=== PATIENT | female | born 1950 | race Caucasian/White ===

== ENCOUNTER → 2016-08-19 | Outpatient (CLI) | payer BC ==
[~2016-08-19] MED LIST: CYM60 PO; MELO15TA3 PO
--- NOTE | 2016-08-19 07:23 | DIAGNOSTIC IMAGING REPORT ---
RENAL ULTRASOUND CLINICAL HISTORY: Hematuria. COMPARISON STUDY: CT of the abdomen and pelvis April 19, 2016. TECHNIQUE: Sonography of the kidneys and the urinary bladder was performed. FINDINGS: The right kidney measures 10 x 4.4 x 5.4 cm and the left measures 10.5 x 4.9 x 4.6 cm. There is no hydronephrosis. No calculi are identified. No masses are identified. Renal echogenicity, size and cortical thickness are normal. The bladder is unremarkable. Both ureteral jets were identified. IMPRESSION: Normal renal ultrasound. No hydronephrosis. No urinary calculi identified. Electronically signed by: Everett Amin M.D. 08/19/2016 7:21 AM Dictated Date/Time: 08/19/2016 7:19 AM
== END | disposition home or self-care (01) ==
LOC: C.ULTR 06:19
PROVIDERS: ATTEND Urology
DX: R31.9 Hematuria, unspecified (principal)

== ENCOUNTER → 2016-09-09 | Outpatient (CLI) | payer BC | END | disposition home or self-care (01) | LOC: C.PATHSPEC 17:28 | PROVIDERS: ATTEND Urology | DX: R31.9 Hematuria, unspecified (principal) ==

== ENCOUNTER → 2016-09-19 | Outpatient (CLI) | payer BC ==
--- NOTE | 2016-09-19 15:40 | MAMMOGRAPHY REPORT ---
BILATERAL DIGITAL SCREENING MAMMOGRAM WITH CAD: 09/19/2016 CLINICAL HISTORY: Routine screening. Patient has no complaints. TECHNIQUE: Current study was also evaluated with a Computer Aided Detection (CAD) system. Bilatera l CC and MLO views were obtained. COMPARISON: Comparison is made to exams dated: 06/05/2015 mammogram, 06/03/2014 mammogram, 09/17/2011 m ammogram, 02/26/2010 mammogram - [facility], and 10/16/1998 mammogram - [facility]. BREAST COMPOSITION: The tissue of both breasts is heterogeneously dense, which may obscure small ma sses. FINDINGS: No suspicious masses, calcifications, or areas of architectural distortion are noted in e ither breast. There has been no significant interval change compared to prior exams. Bilateral asym metries are stable compared to prior exams, including asymmetry in the right superior breast which i s stable dating back to 2009 and an asymmetry in the left superior breast on the MLO view which is s table dating back to at least the 2014 and 2011 exams. IMPRESSION: ACR BI-RADS CATEGORY 2: BENIGN There is no mammographic evidence of malignancy. A 1 year screening mammogram is recommended. The p atient will receive written notification of the results. Approximately 10% of breast cancers are not detected with mammography. A negative mammographic repor t should not delay biopsy if a clinically suggestive mass is present. Michelle Munson M.D. /:09/19/2016 13:36:07 Counseling Case Manager: Arielle Garcia RT(R)(M), [facility] letter sent: Normal 1/2 BI-RADS Code: ACR BI-RADS Category 2: Benign
== END | disposition home or self-care (01) ==
LOC: C.MAMM 08:35
PROVIDERS: ATTEND Internal Medicine Geriatric Medicine
DX: Z12.31 Encounter for screening mammogram for malignant neoplasm of breast (principal)

== ENCOUNTER → 2016-12-06 | Outpatient (CLI) | payer BC ==
[2016-12-06 16:40] LABS: BASO % 0.1 %; BASO ABS # 0.01 K/uL (0-0.2); COMPLETE YES; EOS % 2.2 %; HEMATOCRIT 44.7 % (37-47); IG% 0.1 %; LYMPH ABS # 2.44 K/uL (1.2-3.4); MEAN CELL VOLUME 88.2 fL (80-100); MEAN CORPUSCULAR HEMOGLOBIN 29.2 pg (25-34); MEAN CORPUSCULAR HGB CONC 33.1 g/dl (32-36); MONO % 7.2 %; NEUT % 54.4 %; PLATELET COUNT 275 K/uL (130-400); RED BLOOD COUNT 5.07 M/uL (4.2-5.4); WHITE BLOOD COUNT 6.78 K/uL (4.8-10.8)
[2016-12-06 16:57] LABS: ALT/SGPT 9 U/L (12-78); BLOOD UREA NITROGEN 18 mg/dl (7-18); BUN/CREATININE RATIO 21.9 (10-20); C-REACTIVE PROTEIN < 0.29 mg/dl (0-0.29); CALCIUM 8.9 mg/dl (8.5-10.1); CARBON DIOXIDE 28 mmol/L (21-32); CHLORIDE 105 mmol/L (98-107); CREATININE 0.83 mg/dl (0.60-1.20); GLUCOSE 82 mg/dl (70-99); POTASSIUM 3.7 mmol/L (3.5-5.1); SODIUM 141 mmol/L (136-145)
[2016-12-06 17:07] LABS: ALB/GLOB RATIO 1.1 (0.9-2); ALKALINE PHOSPHATASE 83 U/L (45-117); AST/SGOT 15 U/L (15-37)
== END | disposition home or self-care (01) ==
LOC: C.LABBC 15:32
PROVIDERS: ATTEND Physician Assistant
DX: L28.2 Other prurigo (principal)

== ENCOUNTER 2021-12-22 12:23 | Observation (INO) ==
[2021-12-22] MEDS ORDERED: MoRPHine SULFATE 2 MG/ML CARP IV STA ×2 (12:38→13:54)
[2021-12-22] MEDS ORDERED: ONDANSETRON INJ 2 MG/ML 2 ML VIAL IV STA (12:38)
[2021-12-22] MEDS ORDERED: LIDOCAINE 5% 1 PATCH TD STA (12:39)
--- NOTE | 2021-12-22 12:42 | Emergency Department Note ---
History of Present Illness General Chief complaint: Back Injury/Pain Stated complaint: BACK PAIN Time Seen by Provider: 12/22/21 12:29 History of Present Illness Maximum Pain Intensity: 7 This is a 71-year-old female that presents to the emergency department via private vehicle with complaints of "back pain, hard time walking". The patient has a history of "sciatica" and has been dealing with intermittently for some time now. Patient notes trouble walking secondary to this. She has not had any spine surgery before. She states that yesterday and today the pain seems to have returned prompting arrival here today. She notes the pain is much worse than previous discomforts. She points to the right gluteal region as a location of the pain that radiates into the right leg. No known trauma or injury. No fevers or chills. No abdominal pain. No lower extremity weakness. No bowel or bladder incontinence. She does feel some weakness in the right leg. The patient has been taking Tylenol without relief. No anticoagulant use. No allergies. No infectious symptoms. Home Medications Medication Instructions Recorded Confirmed Type acetaminophen 500 mg tablet 1,000 mg PO TID PRN #90 tabs 11/20/18 09/21/21 History cholecalciferol (vitamin D3) 25 3,000 unit PO DAILY 02/28/20 09/21/21 History mcg (1,000 unit) capsule propranolol 160 mg capsule,24 160 mg PO DAILY #90 caps 04/13/21 09/21/21 Rx hr,extended release cyanocobalamin (vitamin B-12) 1,000 mcg IM .COMPLEX #1 mL 07/26/21 09/21/21 Rx 1,000 mcg/mL injection solution mecobalamin (vitamin B12) 10,000 1,000 mcg IM .COMPLEX #1 ea 07/26/21 09/21/21 Rx mcg solution for injection ropinirole 1 mg tablet 1 mg PO TID #90 tabs 09/11/21 09/21/21 Rx duloxetine 60 mg capsule,delayed 60 mg PO DAILY #90 caps 09/21/21 09/21/21 Rx release meloxicam 15 mg tablet 15 mg PO DAILY #90 tabs 09/21/21 09/21/21 Rx cyclobenzaprine 5 mg tablet 5 mg PO TID PRN muscle spasm #20 11/13/21 Rx tabs oxycodone 5 mg tablet 5 - 10 mg PO Q6H PRN pain #15 tabs 11/13/21 Rx prednisone 20 mg tablet 20 mg PO DAILY #18 tabs 11/13/21 Rx carbidopa 25 mg-levodopa 100 mg 1 tab PO TID 90 days #270 tabs 12/17/21 Rx tablet Allergies Allergy/AdvReac Type Severity Reaction Status Date / Time No Known Drug Allergies Allergy Verified 09/21/21 09:33 Past Med/Surg History Medical History Benign familial tremor Fibromyalgia Hyperlipidemia, unspecified Migraine without aura and without status migrainosus, not intractable Osteoporosis, unspecified Parkinsonism Vitamin D deficiency Surgical History History of cataract surgery (2020) Both eyes S/P tonsillectomy and adenoidectomy S/P tooth extraction Family History Father Myocardial infarction Coronary heart disease Tremor Stroke Mother , age 79 Pancreatic cancer Brother Tremor Melanoma Grandmother (Maternal) Crohn's colitis Daughter Crohn's colitis Denies family history of Ovarian cancer Prostate cancer Diabetes Breast cancer Lung cancer Colorectal cancer Social History Smoking Status: Never smoker Second Hand Exposure: No; Hx Alcohol Use: No Hx Substance Use: No Preferred Language: Yakut Communication Ability: Effective Visual Impairment: No Limitations Hearing Ability: Normal Graves Registration Specialist Required: No Beliefs That Will Affect Care: None marital status: / Current Living Situation: Alone 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 Feels Safe at Home: Yes Childhood Exposure to Second-Hand Smoke: No Diet Comment: regular caffeine: No during the past year weight has: remained stable Dental Care, Regularly: Yes Physical Activity Frequency: Daily Physical Activity Frequency Comment: Walking Seatbelt Use: always Sunscreen Use: Yes Review of Systems A total of 10 systems reviewed and were otherwise negative Physical Exam Vital Signs Vital Signs - 24 hr 12/22/21 12:26 12/22/21 12:39 12/22/21 13:35 Temperature 36.7 C Temperature Source Skin Pulse Rate 74 Pulse Rate [Right Radial] 76 Pulse Rhythm Regular Pulse Rhythm [Right Radial] Regular Pulse Strength Normal Respiratory Rate 16 20 Respiratory Effort / Characteristics Non-Labored Spontaneous Respiratory Depth Normal Normal Respiratory Pattern Regular Blood Pressure 144/95 H Blood Pressure [Left Arm] 143/76 H Blood Pressure Mean 111 Blood Pressure Mean [Left Arm] 98 Blood Pressure Position Sitting Blood Pressure Position [Left Arm] Pulse Oximetry 95 94 98 Oxygen Delivery Method Room Air Room Air Room Air Oxygen Flow Rate Sepsis Recent Fever Within 48 Hours No Sepsis New/Unexplained Change in Mental Status No Sepsis Action Taken by Nursing No Action Required 12/22/21 15:08 12/22/21 16:00 Temperature Temperature Source Pulse Rate Pulse Rate [Right Radial] 70 73 Pulse Rhythm Pulse Rhythm [Right Radial] Regular Pulse Strength Respiratory Rate 16 16 Respiratory Effort / Characteristics Respiratory Depth Respiratory Pattern Blood Pressure Blood Pressure [Left Arm] 157/94 H 150/102 H Blood Pressure Mean Blood Pressure Mean [Left Arm] 115 118 Blood Pressure Position Blood Pressure Position [Left Arm] Sitting Pulse Oximetry 93 95 Oxygen Delivery Method Nasal Cannula Nasal Cannula Oxygen Flow Rate 2 Sepsis Recent Fever Within 48 Hours Sepsis New/Unexplained Change in Mental Status Sepsis Action Taken by Nursing VITAL SIGNS - Vital signs and nursing notes were reviewed. Stable and afebrile. GENERAL - 71-year-old female appearing her stated age who is in no acute distres s. Communicates well with provider and answers questions appropriately. SKIN - Without rashes. No meningeal or petechial rash. HEAD - NC/AT. EYES - PERRL with EOMI bilaterally. Sclera anicteric. EARS - No deformities of external structures noted on gross examination bilaterally. NOSE - Midline and without cyanosis. No epistaxis or purulent drainage noted. MOUTH/OROPHARYNX - Without perioral cyanosis. NECK - Neck with FROM. No nuchal rigidity. LUNGS - Chest wall symmetric without accessory muscle use, intercostals retractions, or central cyanosis. Normal vesicular breath sounds CTA B/L. No wheezes, rales, or rhonchi appreciated. CARDIAC - RRR with S1/S2. No murmur, rubs, or gallops appreciated. ABDOMEN - Abdominal contour normal without pulsations or visible masses. BS normoactive all four quadrants. No tenderness, palpable masses, hepatosplenomegaly, or ascites noted. EXTREMITIES - No clubbing or peripheral cyanosis. +5/5 strength noted in UE/LE bilaterally. NEUROLOGIC - Cranial nerves II through XII grossly intact. PSYCH - A&O, and cooperates fully with examiner. Pt is very pleasant and interacts well with examiner. Course Administered Medications Discontinued Medications Dexamethasone Sodium Phosphate (DexamethasonePf 10 Mg/Ml Vial) 10 mg IV NOW ONE Stop: 12/22/21 16:16 Last Admin: 12/22/21 16:41 Dose: 10 mg Documented By: JORDAN Fentanyl Citrate (Fentanyl Citrate 100 Mcg/2 Ml Vial) 50 mcg IV NOW STA Stop: 12/22/21 14:21 Last Admin: 12/22/21 14:29 Dose: 50 mcg Documented By: Ketorolac Tromethamine (Ketorolac Tromethamine 15 Mg/Ml Vial) 10 mg IV NOW STA Stop: 12/22/21 14:21 Last Admin: 12/22/21 14:29 Dose: 10 mg Documented By: Lidocaine (Lidocaine 5% 1 Patch) 1 patch TD NOW STA Stop: 12/22/21 12:40 Last Admin: 12/22/21 12:59 Dose: 1 patch Documented By: Morphine Sulfate (Morphine Sulfate 2 Mg/Ml Carp) 2 mg IV NOW STA Stop: 12/22/21 12:39 Last Admin: 12/22/21 12:58 Dose: 2 mg Documented By: Morphine Sulfate (Morphine Sulfate 2 Mg/Ml Carp) 2 mg IV NOW STA Stop: 12/22/21 13:55 Last Admin: 12/22/21 13:58 Dose: 2 mg Documented By: COMFORT Ondansetron HCl (Ondansetron Inj 2 Mg/Ml 2 Ml Vial) 4 mg IV NOW STA Stop: 12/22/21 12:39 Last Admin: 12/22/21 12:58 Dose: 4 mg Documented By: Medical Decision Making Laboratory Data Result diagrams: 12/22/21 12:49 12/22/21 12:49 Lab Results 12/22/21 12/22/21 Range/Units 12:49 12:49 WBC 4.23 L (4.8-10.8) K/ul RBC 4.90 (3.93-5.22) M/uL Hgb 14.4 (12.0-16.0) g/dl Hct 43.7 (34.1-44.9) % MCV 89.2 (80.0-100.0) fL MCH 29.4 (25.0-34.0) pg MCHC 33.0 (32.0-36.0) g/dL RDW Std Deviation 41.5 (36.4-46.3) fL RDW Coeff of Karal 12.7 (11.5-14.5) % Plt Count 226 (130-400) K/uL MPV 10.1 (9.4-12.3) fL Immature Gran % (Auto) 0.2 % Neut % (Auto) 47.1 % Lymph % (Auto) 41.4 % [place] % (Auto) 9.9 % Eos % (Auto) 1.2 % Baso % (Auto) 0.2 % Neut # (Auto) 1.99 (1.4-6.5) K/uL Lymph # (Auto) 1.75 (1.2-3.4) K/uL [place] # (Auto) 0.42 (0.24-0.82) K/uL Eos # (Auto) 0.05 (0-0.50) K/uL Baso # (Auto) 0.01 (0-0.2) K/uL Immature Gran # (Auto) 0.01 (0.00-0.02) K/uL Sodium 138 (136-145) mmol/L Potassium 4.4 (3.5-5.1) mmol/L Chloride 104 (98-107) mmol/L Carbon Dioxide 28 (21-32) mmol/L Anion Gap 6 (3-11) BUN 19 (6-23) mg/dl Creatinine 0.73 (0.6-1.2) mg/dl Est Cr Clr Drug Dosing Not Reportable Est GFR ( Amer) 96.0 ml/min Est GFR (Non-Af Amer) 82.9 ml/min BUN/Creatinine Ratio 26.0 H (10-20) Glucose 94 (70-99(Fasting)) mg/dl Calcium 9.1 (8.5-10.1) mg/dl Total Bilirubin 0.5 (0.2-1.0) mg/dl AST 37 (13-39) U/L ALT 71 H (7-52) U/L Alkaline Phosphatase 72 (34-104) U/L Total Protein 7.1 (6.0-8.3) gm/dl Albumin 4.2 (3.4-5.0) gm/dl Globulin 2.9 (2.5-4.0) gm/dl Albumin/Globulin Ratio 1.4 (0.9-2) Imaging Data Radiologist's Impression: Lumbar Spine MRI 12/22/21 12:38 MR lumbar spine wo con CLINICAL HISTORY: R low back pain into R leg, R leg weakness TECHNIQUE: Multiplanar sequences through the lumbar spine were obtained, without intravenous contrast. Comparison: Comparison is made to MRI lumbar spine 05/31/2021 FINDINGS: The alignment is anatomical. L1-L2: A broad-based posterior disc bulge is seen without significant canal or neural foraminal stenosis. L2-L3: Broad-based posterior disc bulge without evidence of significant canal or neuroforaminal stenosis. L3-L4: Left greater than right disc bulge is seen with mild left neuroforaminal stenosis. L4-L5: Broad-based posterior disc bulge with moderate left neural foraminal stenosis. L5-S1: Broad-based posterior disc bulge with moderate bilateral foraminal stenosis. The spinal ligaments are intact, without evidence of disruption or abnormal signal intensity. The spinal cord is normal in signal intensity and there is no evidence of cord contusion. There is no evidence of an extradural, intradural, extramedullary or intramedullary lesion. Visualized soft tissues are normal. IMPRESSION: Multilevel degenerative changes as above. No significant canal stenosis, up to moderate bilateral neural foraminal stenosis. Overall findings are similar to prior exam. ACT 112: Negative or not required by law. Electronically signed by: Antolin Casiano M.D. 12/22/2021 3:30 PM MDM Narrative Patient was seen and evaluated as above in room D09. Review was performed of nursing notes and vital signs. I did review pertinent previous visits and patient history. After obtaining a thorough history and physical examination the above work up was performed. Patient presents to us today for evaluation of right-sided low back pain. This does fit with a right-sided lumbar radiculopathy. She does not have any findings to suggest cauda equina syndrome. No infectious symptoms. She does appear to be in pain. Options of care were discussed with the patient. IV access was established. Labs were drawn. She was initially medicated with IV morphine, IV Zofran. Lidocaine patch was applied. Given the patient's continued discomfort and now significant difficulty in finding a comfortable position, sleeping, standing/ambulating I did find that an MRI of the L-spine at this time is warranted. This was ordered. I was notified by staff twice that the patient was unable to lie flat secondary to pain. The first time a second dose of morphine was provided and the second time IV fentanyl plus Toradol was ordered however nurse was present to monitor oxygenation while in the MRI suite. There was some mild hypoxia around 88% and she was placed on O2 nasal cannula and responded nicely. The patient was feeling better with this but still did have some difficulty in laying flat. Results of the MRI as above. I did review the images. Overall the findings are similar to prior exam however there are certainly findings that would contribute to her presentation at this time. I discussed in length with the patient several options moving forward and at this time agree upon inpatient management. I do not believe that she will be able to manage her pain well in the outpatient setting at the present time as this was tried about a month ago when she was seen here in the emergency department. Case discussed with the hospitalist service. Please refer to further documentation regarding her stay. I at this time do not believe that she requires emergent transfer or emergent surgery. No deficits on examination to suggest cord injury. I did add IV dexamethasone given the patient's radiculopathy symptoms. It is felt the benefit outweighs the risk. No evidence of infection. Case was discussed with the attending physician. GCS: 15 In the evaluation and treatment of this patient the following differential d iagnosis entertained: Fracture, dislocation, subluxation, cauda equina syndrome, AAA, diverticulitis, appendicitis, torsion, osteomyelitis, piriformis syndrome, strain, sprain, among others. Impression & Plan Right lumbar radiculopathy Discharge Plan Visit Data Chief Complaint: Back Injury/Pain Stated Complaint: BACK PAIN ED Provider: Jose Wheat ED Midlevel Provider: Eugenio Kellogg Discharge Problem: Right lumbar radiculopathy Patient Disposition: Admitted As Inpatient Condition: Good Forms Stand Alone Forms: My [facility], [facility] Emergency Department, Important Visit Information Prescriptions Prescriptions: No Action cholecalciferol (vitamin D3) 25 mcg (1,000 unit) capsule 3,000 unit PO DAILY propranolol 160 mg capsule,extended release 24 hr 160 mg PO DAILY Qty: 90 3RF carbidopa-levodopa 25-100 mg tablet 1 tab PO TID 90 Days Qty: 270 1RF duloxetine 60 mg capsule,delayed release(DR/EC) 60 mg PO DAILY Qty: 90 3RF meloxicam 15 mg tablet 15 mg PO DAILY Qty: 90 3RF mecobalamin (vitamin B12) 10,000 mcg recon soln 1,000 mcg IM .COMPLEX Qty: 1 8RF Rx Instructions: 1000 mcg IM once monthly cyanocobalamin (vitamin B-12) 1,000 mcg/mL solution 1,000 mcg IM .COMPLEX Qty: 1 8RF Rx Instructions: 1,000 mcg IM once monthly; ropinirole 1 mg tablet 1 mg PO TID Qty: 90 5RF acetaminophen 500 mg tablet 1,000 mg PO TID PRNQty: 90 oxycodone 5 mg tablet 5 - 10 mg PO Q6H PRN (Reason: pain) Qty: 15 0RF Rx Instructions: Initial Treatment prednisone 20 mg tablet 20 mg PO DAILY Qty: 18 0RF Rx Instructions: 3 tablets once daily x 3 days, 2 tablets once daily x 3 days, one tablet once daily x 3 days. cyclobenzaprine 5 mg tablet 5 mg PO TID PRN (Reason: muscle spasm) Qty: 20 0RF Referrals Referrals: Jasmin Polanco, [Primary Care Provider] -
[2021-12-22 12:57] LABS: Basophils # (auto) 0.01 K/uL (0-0.2); Basophils % (auto) 0.2 %; Eosinophils # (auto) 0.05 K/uL (0-0.50); Eosinophils % (auto) 1.2 %; Hematocrit (blood only) 43.7 % (34.1-44.9); Hemoglobin 14.4 g/dl (12.0-16.0); Immature Granulocytes # (auto) 0.01 K/uL (0.00-0.02); Immature Granulocytes % (auto) 0.2 %; Lymphocytes # (auto) 1.75 K/uL (1.2-3.4); Lymphocytes % (auto) 41.4 %; Mean Corpuscular Hemoglobin 29.4 pg (25.0-34.0); Mean Corpuscular Volume 89.2 fL (80.0-100.0); Mean Platelet Volume 10.1 fL (9.4-12.3); Monocytes # (auto) 0.42 K/uL (0.24-0.82); Monocytes % (auto) 9.9 %; Neutrophils # (auto) 1.99 K/uL (1.4-6.5); Neutrophils % (auto) 47.1 %; Platelet Count 226 K/uL (130-400); RDW Coefficient of Variation 12.7 % (11.5-14.5); RDW Standard Deviation 41.5 fL (36.4-46.3); White Blood Count 4.23 K/ul (4.8-10.8)
[2021-12-22 13:23] LABS: Alanine Aminotransferase 71 U/L (7-52); Albumin Globulin Ratio 1.4 (0.9-2); Albumin Level 4.2 gm/dl (3.4-5.0); Alkaline Phosphatase 72 U/L (34-104); Anion Gap 6 (3-11); Aspartate Aminotransferase 37 U/L (13-39); Bilirubin,Total 0.5 mg/dl (0.2-1.0); Blood Urea Nitrogen 19 mg/dl (6-23); Calcium 9.1 mg/dl (8.5-10.1); Carbon Dioxide 28 mmol/L (21-32); Chloride 104 mmol/L (98-107); Est GFR (Non-African American) 82.9 ml/min; Globulin 2.9 gm/dl (2.5-4.0); Glucose 94 mg/dl (70-99(Fasting)); Potassium 4.4 mmol/L (3.5-5.1); Sodium 138 mmol/L (136-145); Total Protein 7.1 gm/dl (6.0-8.3)
[2021-12-22] MEDS ORDERED: KETOROLAC TROMETHAMINE 15 MG/ML VIAL IV STA (14:20)
[2021-12-22] MEDS ORDERED: fentaNYL citrate 100 MCG/2 ML VIAL IV STA (14:20)
--- NOTE | 2021-12-22 15:31 | Magnetic Resonance Report ---
MR lumbar spine wo con CLINICAL HISTORY: R low back pain into R leg, R leg weakness TECHNIQUE: Multiplanar sequences through the lumbar spine were obtained, without intravenous contrast . Comparison: Comparison is made to MRI lumbar spine 05/31/2021 FINDINGS: The alignment is anatomical. L1-L2: A broad-based posterior disc bulge is seen without significant canal or neural foraminal steno sis. L2-L3: Broad-based posterior disc bulge without evidence of significant canal or neuroforaminal steno sis. L3-L4: Left greater than right disc bulge is seen with mild left neuroforaminal stenosis. L4-L5: Broad-based posterior disc bulge with moderate left neural foraminal stenosis. L5-S1: Broad-based posterior disc bulge with moderate bilateral foraminal stenosis. The spinal ligaments are intact, without evidence of disruption or abnormal signal intensity. The spi nal cord is normal in signal intensity and there is no evidence of cord contusion. There is no eviden ce of an extradural, intradural, extramedullary or intramedullary lesion. Visualized soft tissues are normal. IMPRESSION: Multilevel degenerative changes as above. No significant canal stenosis, up to moderate bilateral carlos ral foraminal stenosis. Overall findings are similar to prior exam. ACT 112: Negative or not required by law. Electronically signed by: Antolin Casiano M.D. 12/22/2021 3:30 PM
[2021-12-22] MEDS ORDERED: dexAMETHasone**PF** 10 MG/ML VIAL IV ONE (16:15)
[2021-12-22] MEDS ORDERED: CARBIDOPA/LEVODOPA 25/100MG TAB ODT PO STA (16:56)
--- NOTE | 2021-12-22 17:04 | History & Physical Report ---
Date of Service December 22, 2021 Assessment & Plan (1) Right lumbar radiculopathy: Plan: Pain consistent with likely sciatic pain, MRI with disk disease and bulging without stenosis - Multi-tiered pain control- Tylenol, Lidocaine patch, Cyclobenzaprine, oral prednisone to start in AM, oxy, Hydromporphone - Will initiate Gabapentin 300mg PO BID - Continue Duloxetine - Ortho spine consultation - PT/OT therapy - Acute/chronic pain consult if unable to get pain controlled (2) Parkinsons disease: Plan: Continue Carbi-dopa/Levadopa - dose now as she takes TID (3) Vitamin D deficiency: Plan: Continue Vitamin D (4) Osteoporosis, unspecified: Plan: As above (5) Hyperlipidemia, unspecified: Plan: no medications diet controlled follow up with PCP (6) Fibromyalgia: Plan: As above- initiate gabapentin, continue Cymbalta (7) Benign familial tremor: Plan: Continue Propanolol (8) Vitamin B12 deficiency: Plan: Monthly B12 inections stable History of Present Illness Primary Care Provider: Jasmin oPlanco, DO 71 YOF with medical history of: Parkinson disease, chronic low back pain with sciatica, fibromyalgia, osteopetrosis, HLD, migraine, vitamin D deficiency. Patient comes to the EMD today for increase in lower back pain, radicular symptoms of her right leg. She has been dealing with this chronic back pain and sciatic pain for some time. She was performing physical therapy with some relief that stopped in November. She was evaluated in the EMD earlier in the month and was treated with steroids, anti-spasmodics, narcotic- this temporized her pain and she was able to walk and function. Since that time her pain worsened over the past 3 days with worse pain and inability to sleep lying flat, or walk standing up straight. The pain is located on her right lower side of her back with radiation to her buttocks and then down the back of her leg into her foot. The pain is sharp, stabbing in her back and the pain going down her leg is sharp and burning. In the EMD the patient had narcotics, Toradol, Lidocaine patch, this decreased her pain but still with inability to stand up and ambulate. She had MRI done which did require her to get Fentanyl to tolerate. Patient was given Decadron 10mg upon return from MRI and is now able to stand up. She has been sleeping in recliner and comfortable position for her is only sitting up in chair. Patient will be admitted for pain control and evaluation by Ortho-spine as well as PT/OT. If unable to get pain controlled consider pain consultation. COVID test on admission is: NEGATIVE on admission Allergies Allergy/AdvReac Type Severity Reaction Status Date / Time No Known Drug Allergies Allergy Verified 09/21/21 09:33 Home Medications Medication Instructions Recorded Confirmed Type acetaminophen 500 mg tablet 1,000 mg PO TID PRN #90 tabs 11/20/18 09/21/21 History cholecalciferol (vitamin D3) 25 3,000 unit PO DAILY 02/28/20 09/21/21 History mcg (1,000 unit) capsule propranolol 160 mg capsule,24 160 mg PO DAILY #90 caps 04/13/21 09/21/21 Rx hr,extended release cyanocobalamin (vitamin B-12) 1,000 mcg IM .COMPLEX #1 mL 07/26/21 09/21/21 Rx 1,000 mcg/mL injection solution mecobalamin (vitamin B12) 10,000 1,000 mcg IM .COMPLEX #1 ea 07/26/21 09/21/21 Rx mcg solution for injection ropinirole 1 mg tablet 1 mg PO TID #90 tabs 09/11/21 09/21/21 Rx duloxetine 60 mg capsule,delayed 60 mg PO DAILY #90 caps 09/21/21 09/21/21 Rx release meloxicam 15 mg tablet 15 mg PO DAILY #90 tabs 09/21/21 09/21/21 Rx cyclobenzaprine 5 mg tablet 5 mg PO TID PRN muscle spasm #20 11/13/21 Rx tabs oxycodone 5 mg tablet 5 - 10 mg PO Q6H PRN pain #15 tabs 11/13/21 Rx prednisone 20 mg tablet 20 mg PO DAILY #18 tabs 11/13/21 Rx carbidopa 25 mg-levodopa 100 mg 1 tab PO TID 90 days #270 tabs 12/17/21 Rx tablet Past Med/Surg History Medical History Benign familial tremor Fibromyalgia Hyperlipidemia, unspecified Migraine without aura and without status migrainosus, not intractable Osteoporosis, unspecified Parkinsonism Vitamin D deficiency Surgical History History of cataract surgery (2020) Both eyes S/P tonsillectomy and adenoidectomy S/P tooth extraction Family History Father Myocardial infarction Coronary heart disease Tremor Stroke Mother , age 79 Pancreatic cancer Brother Tremor Melanoma Grandmother (Maternal) Crohn's colitis Daughter Crohn's colitis Denies family history of Ovarian cancer Prostate cancer Diabetes Breast cancer Lung cancer Colorectal cancer Social History Smoking Status: Never smoker Second Hand Exposure: No; Hx Alcohol Use: Yes Alcohol type: beer Hx Substance Use: No Preferred Language: Maltese Communication Ability: Effective Visual Impairment: No Limitations Hearing Ability: Normal Endoscopy Rn Required: No Beliefs That Will Affect Care: None marital status: / Current Living Situation: Significant Other current occupational status: retired 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 Safe at Home: Yes Safety Concerns: Feels Safe At This Time Childhood Exposure to Second-Hand Smoke: No Diet Comment: regular caffeine: No during the past year weight has: remained stable Dental Care, Regularly: Yes Physical Activity Frequency: Daily Physical Activity Frequency Comment: Walking Seatbelt Use: always Sunscreen Use: Yes Assistive Devices: None Review of Systems Review of Systems: REVIEW OF SYSTEMS: Constitutional: No fever, sweats or chills Eyes: No diplopia, no worsening or blurred vision ENT: normal hearing, no trouble swallowing Respiratory: No cough, sputum, dyspnea at rest or on exertion Cardiovascular: No chest pain, tightness or palpitations Abdomen: No pain, nausea, vomiting, diarrhea or constipation Musculoskeletal: (+) low back pain, radiation to right buttocks and down leg, Neurologic: (+) tremor and parkinson, No weakness, numbness/tingling, or balance problems Psychiatric: No anxiety or depression Skin: No rash or itch Physical Exam Physical Exam: PHYSICAL EXAM: General: awake, alert, no apparent distress, tremor present Head: Normocephalic, atraumatic ENT: PERRL, EOMI, no pharyngeal exudate, mucous membranes moist Neuro: AAO x 3, speech clear and appropriate, strength intact bilaterally 5/5, without loss of strength or muscle tone Chest: equal rise and fall of the chest, no accessory muscle use, no heaves or thrills, Clear to auscultation, on room air, Cardiac: Regular rate and rhythm, telemetry reviewed, skin warm dry, cap refill <3 seconds, peripheral pulses +2 no JVD, no murmur, no JVD, no edema GI: NABS x 4 quadrants, soft, nontender to palpation, no rebound, guarding or tenderness : Spontaneously voiding, no pain, no CVA tenderness, MSK: reporducible pain at right lower back at SI joint and ad L5-S1 centerline, pain into buttocks, when pressed at this point radicular pain down her leg Psych: Normal mood and affect Skin: no rash or erythema Results & Data Results & Data ([facility]) Vital Signs (Past 12 Hours) Vital Signs Temp Pulse Pulse Resp BP BP Pulse Ox 12/22/21 16:00 73 16 150/102 H 95 12/22/21 15:08 70 16 157/94 H 93 12/22/21 13:35 76 20 143/76 H 98 12/22/21 12:39 94 12/22/21 12:26 36.7 C 74 16 144/95 H 95 O2 Del Method O2 Flow Rate 12/22/21 16:00 Nasal Cannula 2 12/22/21 15:08 Nasal Cannula 12/22/21 13:35 Room Air 12/22/21 12:39 Room Air 12/22/21 12:26 Room Air Laboratory Results Laboratory Results - last 24 hr 12/22/21 12/22/21 12/22/21 12:49 12:49 16:06 WBC 4.23 L RBC 4.90 Hgb 14.4 Hct 43.7 MCV 89.2 MCH 29.4 MCHC 33.0 RDW Std Deviation 41.5 RDW Coeff of Karla 12.7 Plt Count 226 MPV 10.1 Immature Gran % (Auto) 0.2 Neut % (Auto) 47.1 Lymph % (Auto) 41.4 [place] % (Auto) 9.9 Eos % (Auto) 1.2 Baso % (Auto) 0.2 Neut # (Auto) 1.99 Lymph # (Auto) 1.75 [place] # (Auto) 0.42 Eos # (Auto) 0.05 Baso # (Auto) 0.01 Immature Gran # (Auto) 0.01 Sodium 138 Potassium 4.4 Chloride 104 Carbon Dioxide 28 Anion Gap 6 BUN 19 Creatinine 0.73 Est Cr Clr Drug Dosing Not Reportable Est GFR ( Amer) 96.0 Est GFR (Non-Af Amer) 82.9 BUN/Creatinine Ratio 26.0 H Glucose 94 Calcium 9.1 Total Bilirubin 0.5 AST 37 ALT 71 H Alkaline Phosphatase 72 Total Protein 7.1 Albumin 4.2 Globulin 2.9 Albumin/Globulin Ratio 1.4 SARS-CoV-2, RNA, NAAT NEGATIVE Diagnostic Findings Lumbar Spine MRI 12/22/21 12:38 MR lumbar spine wo con CLINICAL HISTORY: R low back pain into R leg, R leg weakness TECHNIQUE: Multiplanar sequences through the lumbar spine were obtained, without intravenous contrast. Comparison: Comparison is made to MRI lumbar spine 05/31/2021 FINDINGS: The alignment is anatomical. L1-L2: A broad-based posterior disc bulge is seen without significant canal or neural foraminal stenosis. L2-L3: Broad-based posterior disc bulge without evidence of significant canal or neuroforaminal stenosis. L3-L4: Left greater than right disc bulge is seen with mild left neuroforaminal stenosis. L4-L5: Broad-based posterior disc bulge with moderate left neural foraminal stenosis. L5-S1: Broad-based posterior disc bulge with moderate bilateral foraminal stenosis. The spinal ligaments are intact, without evidence of disruption or abnormal signal intensity. The spinal cord is normal in signal intensity and there is no evidence of cord contusion. There is no evidence of an extradural, intradural, extramedullary or intramedullary lesion. Visualized soft tissues are normal. IMPRESSION: Multilevel degenerative changes as above. No significant canal stenosis, up to moderate bilateral neural foraminal stenosis. Overall findings are similar to prior exam. ACT 112: Negative or not required by law. Electronically signed by: Antolin Casiano M.D. 12/22/2021 3:30 PM Medications Administered Discontinued Medications Dexamethasone Sodium Phosphate (DexamethasonePf 10 Mg/Ml Vial) 10 mg IV NOW ONE Stop: 12/22/21 16:16 Last Admin: 12/22/21 16:41 Dose: 10 mg Documented By: JORDAN Fentanyl Citrate (Fentanyl Citrate 100 Mcg/2 Ml Vial) 50 mcg IV NOW STA Stop: 12/22/21 14:21 Last Admin: 12/22/21 14:29 Dose: 50 mcg Documented By: AB Ketorolac Tromethamine (Ketorolac Tromethamine 15 Mg/Ml Vial) 10 mg IV NOW STA Stop: 12/22/21 14:21 Last Admin: 12/22/21 14:29 Dose: 10 mg Documented By: Lidocaine (Lidocaine 5% 1 Patch) 1 patch TD NOW STA Stop: 12/22/21 12:40 Last Admin: 12/22/21 12:59 Dose: 1 patch Documented By: AB Morphine Sulfate (Morphine Sulfate 2 Mg/Ml Carp) 2 mg IV NOW STA Stop: 12/22/21 12:39 Last Admin: 12/22/21 12:58 Dose: 2 mg Documented By: AB Morphine Sulfate (Morphine Sulfate 2 Mg/Ml Carp) 2 mg IV NOW STA Stop: 12/22/21 13:55 Last Admin: 12/22/21 13:58 Dose: 2 mg Documented By: COMFORT Ondansetron HCl (Ondansetron Inj 2 Mg/Ml 2 Ml Vial) 4 mg IV NOW STA Stop: 12/22/21 12:39 Last Admin: 12/22/21 12:58 Dose: 4 mg Documented By: AB ECG Additional Comments: none obtained Code Status & VTE Plan Code Status CODE: FULL VTE: SCDs, Heparin 5000 units subq q12 VTE Prophylaxis Plan VTE Prophylaxis will be ordered: Yes Supervising Physician Co-Signing Physician Notes HEALTH INFORMATION ADMINISTRATOR Supervision note: I have personally seen and examined the patient and discussed and verified the gay points of the history and physical along with the plan with RIAZ Preciado with the following exceptions and/or additions: This patient is a 71-year-old female with acute on chronic right-sided sciatica type pain. She had a flareup about 2 months ago that was treated with steroids, pain medication, and physical therapy with some relief. Lately the pain has been much more severe in the right buttocks radiating down the back of the right lower extremity to the lateral right ankle. No bowel or bladder symptoms, no numbness or tingling. She is able to walk but it is very painful. She came to the ER due to severe pain. Vitals reviewed Gen: AAOx3, NAD HEENT: Anicteric sclerae, EOMI CV: RRR no mgr nl S1S2 Pulm: CTAB no wcr Abd: +BS soft NT ND no masses or hernias Ext: No edema, 2+ DP pulses Skin: No rashes, warm/dry Neuro: Full strength throughout but pain with resisted right hip flexion, positive straight leg raise on right, negative on left, DTRs 3+ and brisk throughout lower extremities, sensation intact to light touch throughout lower extremities bilaterally, 5/5 strength throughout lower extremities; tremor in bilateral upper extremities Labs and rads reviewed 71-year-old female here with acute on chronic right-sided sciatica Muscle relaxers, steroid burst, pain control Consult orthopedic spine surgery but doubtful this is a surgical case PT/OT consults Hopeful for discharge to home tomorrow PG Care Time/CCT Total # of Minutes Spent Total Time Spent with Patient: Total time spent is greater than 50% in coordination of care (as documented) at patient's floor/unit and/or counseling patient: Coding Level of Care Code 39839 Initial Inpt Care Lvl 3 Diagnoses Right lumbar radiculopathy M54.16 Parkinsons disease G20 Vitamin D deficiency E55.9 Osteoporosis, unspecified M81.0 Hyperlipidemia, unspecified E78.5 Fibromyalgia M79.7 Benign familial tremor G25.0 Vitamin B12 deficiency E53.8
[2021-12-22] MEDS ORDERED: CYANOCOBALAMIN 1000 MCG/ML VIAL IM SCH (18:39)
[2021-12-22] MEDS ORDERED: HYDROmorphone INJ 0.5 MG/0.5 ML SYR IV PRN (18:39)
[2021-12-22] MEDS: GABAPENTIN 300 MG CAP PO SCH (20:39)
[2021-12-22] MEDS: HEPARIN SOD 5,000 UNIT/0.5 ML VIAL SQ SCH (20:40)
[2021-12-22] MEDS: CYCLOBENZAPRINE HCL 5 MG TAB PO PRN (20:40)
[2021-12-22] MEDS: CARBIDOPA/LEVODOPA 25/100MG TAB PO SCH (20:40)
[2021-12-22] MEDS: rOPINIRole HCL 1 MG TABLET PO SCH (20:40)
[2021-12-22] MEDS: ACETAMINOPHEN 325 MG TAB PO PRN (23:34)
[2021-12-22] MEDS: oxyCODONE HCL IR 5 MG TAB (IMMEDIATE RELEASE) PO PRN (23:35)
[2021-12-23] MEDS: CYCLOBENZAPRINE HCL 5 MG TAB PO PRN (05:49)
[2021-12-23] MEDS: ACETAMINOPHEN 325 MG TAB PO PRN (05:56)
[2021-12-23] MEDS ORDERED: predniSONE 20 MG TAB PO SCH ×2 (06:00→09:00)
[2021-12-23] MEDS: CARBIDOPA/LEVODOPA 25/100MG TAB PO SCH ×2 (07:57→13:53)
[2021-12-23] MEDS: rOPINIRole HCL 1 MG TABLET PO SCH ×2 (07:57→13:53)
[2021-12-23] MEDS: GABAPENTIN 300 MG CAP PO SCH (07:58)
[2021-12-23] MEDS: HEPARIN SOD 5,000 UNIT/0.5 ML VIAL SQ SCH (08:04)
[2021-12-23] MEDS: oxyCODONE HCL IR 5 MG TAB (IMMEDIATE RELEASE) PO PRN ×2 (08:15→13:55)
[2021-12-23 08:35] LABS: Basophils # (auto) 0.01 K/uL (0-0.2); Basophils % (auto) 0.3 %; Hematocrit (blood only) 45.3 % (34.1-44.9); Lymphocytes # (auto) 1.39 K/uL (1.2-3.4); Lymphocytes % (auto) 43.4 %; Mean Corpuscular Hemoglobin 29.5 pg (25.0-34.0); Mean Corpuscular Hgb Conc 33.1 g/dL (32.0-36.0); Mean Corpuscular Volume 89.2 fL (80.0-100.0); Mean Platelet Volume 9.9 fL (9.4-12.3); Monocytes # (auto) 0.34 K/uL (0.24-0.82); Monocytes % (auto) 10.6 %; Neutrophils # (auto) 1.46 K/uL (1.4-6.5); Neutrophils % (auto) 45.7 %; Platelet Count 257 K/uL (130-400); RDW Coefficient of Variation 12.4 % (11.5-14.5); RDW Standard Deviation 41.2 fL (36.4-46.3); Red Blood Count 5.08 M/uL (3.93-5.22)
[2021-12-23 08:54] LABS: BUN Creatinine Ratio 21.9 (10-20); Calcium 9.3 mg/dl (8.5-10.1); Creatinine Clr Calc Pharmacy 82.3 ml/min; Est GFR (Non-African American) 82.9 ml/min; Potassium 4.3 mmol/L (3.5-5.1)
[2021-12-23] MEDS ORDERED: PROPRANOLOL HCL LA 80 MG CAPCR PO SCH (09:00)
[2021-12-23] MEDS ORDERED: LIDOCAINE 5% 1 PATCH TD SCH (09:00)
[2021-12-23] MEDS ORDERED: CHOLECALCIFEROL 1,000 UNITS 25 MCG TAB PO SCH (09:00)
[2021-12-23] MEDS ORDERED: DULoxetine HCL 60 MG CAP PO SCH (09:00)
--- NOTE | 2021-12-23 11:41 | Orthopedic Consultation ---
Date of Consultation December 23, 2021 Assessment & Plan (1) Right lumbar radiculopathy: I had the opportunity review her May and December lumbar MRI. It does appear she has a an acute foraminal disc herniation on the right that could be compressing the exiting L5 nerve root and subsequently explaining her severe radiculopathy. There is also marked vacuum phenomenon at the L5 S1 disc she probably has an underlying disc space collapse and instability further risking neural compression and subsequent radiculopathy. I would like to obtain standing x-rays. We will consider consultation with pain management for injections. Ultimately she may require surgical decompression of the nerve if she fails to respond. She understands agrees. History of Present Illness Reason for Consultation: Right leg pain Attending Physician: Tammi Jolly MD History of Present Illness This a very pleasant 71-year-old female that has a history of 8 weeks of severe right leg pain consistent with radiculopathy. It involves the lumbosacral junction rating into the right buttock posterior thigh extending to the ankle. Markedly exacerbated with standing and walking. She states it is severe in nature. She is trialed a course of oral steroids with very little relief. She is not able to describe any precipitating trauma fall or event. She does have a history of intermittent sciatica but not to this degree. She is not undergone any lumbar injections. Allergies Allergy/AdvReac Type Severity Reaction Status Date / Time No Known Drug Allergies Allergy Verified 09/21/21 09:33 Home Medications Medication Instructions Recorded Confirmed Type acetaminophen 500 mg tablet 1,000 mg PO TID PRN #90 tabs 11/20/18 09/21/21 History cholecalciferol (vitamin D3) 25 3,000 unit PO DAILY 02/28/20 09/21/21 History mcg (1,000 unit) capsule propranolol 160 mg capsule,24 160 mg PO DAILY #90 caps 04/13/21 09/21/21 Rx hr,extended release cyanocobalamin (vitamin B-12) 1,000 mcg IM .COMPLEX #1 mL 07/26/21 09/21/21 Rx 1,000 mcg/mL injection solution mecobalamin (vitamin B12) 10,000 1,000 mcg IM .COMPLEX #1 ea 07/26/21 09/21/21 Rx mcg solution for injection ropinirole 1 mg tablet 1 mg PO TID #90 tabs 09/11/21 09/21/21 Rx duloxetine 60 mg capsule,delayed 60 mg PO DAILY #90 caps 09/21/21 09/21/21 Rx release meloxicam 15 mg tablet 15 mg PO DAILY #90 tabs 09/21/21 09/21/21 Rx cyclobenzaprine 5 mg tablet 5 mg PO TID PRN muscle spasm #20 11/13/21 Rx tabs oxycodone 5 mg tablet 5 - 10 mg PO Q6H PRN pain #15 tabs 11/13/21 Rx prednisone 20 mg tablet 20 mg PO DAILY #18 tabs 11/13/21 Rx carbidopa 25 mg-levodopa 100 mg 1 tab PO TID 90 days #270 tabs 12/17/21 Rx tablet Patient History Medical History Benign familial tremor Fibromyalgia Hyperlipidemia, unspecified Migraine without aura and without status migrainosus, not intractable Osteoporosis, unspecified Parkinsonism Vitamin D deficiency Surgical History History of cataract surgery (2020) Both eyes S/P tonsillectomy and adenoidectomy S/P tooth extraction Family History Father Myocardial infarction Coronary heart disease Tremor Stroke Mother , age 79 Pancreatic cancer Brother Tremor Melanoma Grandmother (Maternal) Crohn's colitis Daughter Crohn's colitis Denies family history of Ovarian cancer Prostate cancer Diabetes Breast cancer Lung cancer Colorectal cancer Social History Smoking Status: Never smoker Second Hand Exposure: No; Hx Alcohol Use: Yes Alcohol type: beer Hx Substance Use: No Preferred Language: Pakistani Communication Ability: Effective Visual Impairment: No Limitations Hearing Ability: Normal Intercell Connector Placer Required: No Beliefs That Will Affect Care: None marital status: / Current Living Situation: Significant Other current occupational status: retired 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 She is obvious distress. She exhibits reasonable plantar flexion dorsiflexion since houses longus bilaterally. There is marked tension signs with straight leg raising on the right negative on the left. Sensory appears to be symmetric and intact. Results & Data ([facility]) Vital Signs (Past 12 Hours) Vital Signs Temp Pulse Resp BP Pulse Ox O2 Del Method 12/23/21 07:29 36.5 C 93 H 20 135/88 92 Room Air
--- NOTE | 2021-12-23 13:50 | XRay Report ---
XR lumbar spine 2-3V CLINICAL HISTORY: Low back pain. COMPARISON STUDY: 11/26/2018 TECHNIQUE: 3 standing Views of the lumbar spine FINDINGS: Bones: The bones are osteopenic with increased S-type scoliotic curve of thoracolumbar spine. There i s no evidence for fracture or malalignment. The heights of the vertebral bodies are maintained. There are no lytic or blastic lesions present. Disc spaces: Moderate to marked disc space narrowing is present throughout the lumbar spine, particul jesus at the concavities of the patient's scoliotic curve. Facet joints: Hypertrophic facet joint disease is also present, again greater at the concavities of t he patient's scoliotic curve. Soft tissues: The paraspinal soft tissues are within normal limits. IMPRESSION: 1. No acute abnormality. 2. Osteopenia with increasing scoliotic curve with increasing degenerative disc and degenerative face t joint disease. ACT 112: Negative or not required by law. Electronically signed by: Jaun Yee M.D. 12/23/2021 1:48 PM
--- NOTE | 2021-12-23 14:19 | Discharge Summary ---
Date of Service December 23, 2021 Admission HPI Per Admitting Provider 71 YOF with medical history of: Parkinson disease, chronic low back pain with sciatica, fibromyalgia, osteopetrosis, HLD, migraine, vitamin D deficiency. Patient comes to the EMD today for increase in lower back pain, radicular symptoms of her right leg. She has been dealing with this chronic back pain and sciatic pain for some time. She was performing physical therapy with some relief that stopped in November. She was evaluated in the EMD earlier in the month and was treated with steroids, anti-spasmodics, narcotic- this temporized her pain and she was able to walk and function. Since that time her pain worsened over the past 3 days with worse pain and inability to sleep lying flat, or walk standing up straight. The pain is located on her right lower side of her back with radiation to her buttocks and then down the back of her leg into her foot. The pain is sharp, stabbing in her back and the pain going down her leg is sharp and burning. In the EMD the patient had narcotics, Toradol, Lidocaine patch, this decreased her pain but still with inability to stand up and ambulate. She had MRI done which did require her to get Fentanyl to tolerate. Patient was given Decadron 10mg upon return from MRI and is now able to stand up. She has been sleeping in recliner and comfortable position for her is only sitting up in chair. Patient will be admitted for pain control and evaluation by Ortho-spine as well as PT/OT. If unable to get pain controlled consider pain consultation. COVID test on admission is: NEGATIVE on admission Principal Diagnosis Right sided lumbar radiculopathy Discharge Exam Vitals reviewed Gen: AAOx3, NAD HEENT: Anicteric sclerae, EOMI CV: RRR no mgr nl S1S2 Pulm: CTAB no wcr Abd: +BS soft NT ND no masses or hernias Ext: No edema, 2+ DP pulses Skin: No rashes, warm/dry Neuro: Full strength throughout but pain with resisted right hip flexion, positive straight leg raise on right, negative on left, DTRs 3+ and brisk throughout lower extremities, sensation intact to light touch throughout lower extremities bilaterally, 5/5 strength throughout lower extremities; tremor in bilateral upper extremities Discharge Data Allergies Allergy/AdvReac Type Severity Reaction Status Date / Time No Known Drug Allergies Allergy Verified 09/21/21 09:33 Consultations 12/22/21 16:14 ED Decision to Admit Stat 12/22/21 18:39 Consult Orthopedic Surgery Routine Ordered Studies 12/22/21 12:38 MR lumbar spine wo con Stat Lumbar spine xray Hospital Course (1) Right lumbar radiculopathy: Presents with right sided LBP,right buttock pain, radiating down RLE to lateral ankle-acute on chronic MRI with disk disease and bulging without stenosis, but Ortho SPine reviewed MRI and sees "an acute foraminal disc herniation on the right that could be compressing the exiting L5 nerve root and subsequently explaining her severe radiculopathy. There is also marked vacuum phenomenon at the L5 S1 disc she probably has an underlying disc space collapse and instability further risking neural compression and subsequent radiculopathy." - Pain improved enough for discharge with initiating gabapentin 300mg po bid, oxycodone prn mod-severe pain, Tylenol prn mild-moderate pain,Lidocaine patch, Cyclobenzaprine prn, and steroid burst -continue same meds at home on discharge Appreciate Ortho SPine consult--> f/u in office to arrange injections. Pt desires trial of injections first before considering surgery - Continue Duloxetine -discharge to home (2) Parkinsons disease: Continue Carbidopa/Levodopa tid (3) Vitamin D deficiency: Continue Vitamin D (4) Osteoporosis, unspecified: (5) Hyperlipidemia, unspecified: no medications diet controlled follow up with PCP (6) Fibromyalgia: As above- initiate gabapentin, continue Cymbalta (7) Benign familial tremor: Continue Propranolol (8) Vitamin B12 deficiency: Monthly B12 inections stable Plan Dispo-dc to home Discussed care with Dr. Alvarado prior to discharge Total Time Total Time Spent Total Time Spent (In Minutes): 35 min Discharge Plan Discharge Items Patient Disposition: Home - Self-Care Reason For Visit: LUMBAR BACK PAIN WITH RADICULOPATHY Discharge Diagnosis: Lumbar back pain with radiculopathy Condition on Discharge: Fair Activity: As commented below Lifting: No more than 5 pounds Bathing: No limitations Exercise/Sports: As tolerated Non-emergency contact: Primary Care Provider and Surgeon Call non-emergency contact if: you have any medication questions, your symptoms worsen, your pain is not controlled and you have a fever Follow-up/Referrals: Jasmin Polanco DO [Primary Care Provider] - (Follow up within 1-2 weeks) Moisés Alvarado DO [Surgeon] - (Follow up with Dr. Alvarado's PA (either Krzysztof Greenberg or Tessa Cazares) for follow up within 1 week at [facility].) Diet: Regular Addtl Attending Provider Instructions: Continue to take the gabapentin twice a day for pain and the oxycodone as needed for severe pain. Follow up with Dr. Alvarado's PA to get set up for injections of the spine. Pending Studies at Discharge: No Stand-Alone Forms: [facility] Medications and DC Order Prescriptions: New gabapentin 300 mg Capsule 300 mg PO BID Qty: 60 0RF Continued cholecalciferol (vitamin D3) 25 mcg (1,000 unit) capsule 3,000 unit PO DAILY propranolol 160 mg capsule,extended release 24 hr 160 mg PO DAILY Qty: 90 3RF carbidopa-levodopa 25-100 mg tablet 1 tab PO TID 90 Days Qty: 270 1RF duloxetine 60 mg capsule,delayed release(DR/EC) 60 mg PO DAILY Qty: 90 3RF mecobalamin (vitamin B12) 10,000 mcg recon soln 1,000 mcg IM .COMPLEX Qty: 1 8RF Rx Instructions: 1000 mcg IM once monthly cyanocobalamin (vitamin B-12) 1,000 mcg/mL solution 1,000 mcg IM .COMPLEX Qty: 1 8RF Rx Instructions: 1,000 mcg IM once monthly; ropinirole 1 mg tablet 1 mg PO TID Qty: 90 5RF acetaminophen 500 mg tablet 1,000 mg PO TID PRNQty: 90 cyclobenzaprine 5 mg tablet 5 mg PO TID PRN (Reason: muscle spasm) Qty: 20 0RF prednisone 20 mg tablet 20 mg PO DAILY Qty: 18 0RF Rx Instructions: 3 tablets once daily x 3 days, 2 tablets once daily x 3 days, one tablet once daily x 3 days. oxycodone 5 mg tablet 5 - 10 mg PO Q6H PRN (Reason: moderate-severe pain) Qty: 20 0RF Discontinued meloxicam 15 mg tablet 15 mg PO DAILY Qty: 90 3RF Discharge Orders: Discharge Order (Routine); Ordered 12/23/21 Ordered By: Tammi Jolly Admission Data Admit Date/Time: 12/22/21 16:26 Attending Provider: Tammi Jolly Admit Provider: Tammi Jolly Primary Care Provider: Jasmin Polanco Other Providers: Moisés Alvarado ; Tammi Jolly Coding Level of Care Code 82018 OBS Care - Discharge Diagnoses Right lumbar radiculopathy M54.16 Parkinsons disease G20 Vitamin D deficiency E55.9 Osteoporosis, unspecified M81.0 Hyperlipidemia, unspecified E78.5 Fibromyalgia M79.7 Benign familial tremor G25.0 Vitamin B12 deficiency E53.8
== END 2021-12-23 15:41 | disposition home or self-care (01) ==
LOC: ED 12:23 → INTOOBSV 16:26 → 3W 16:26
DX: E53.8 Deficiency of other specified B group vitamins; Z79.899 Other long term (current) drug therapy; M54.16 Radiculopathy, lumbar region; E55.9 Vitamin D deficiency, unspecified; G20 Parkinson's disease; G25.0 Essential tremor; M79.7 Fibromyalgia; E78.5 Hyperlipidemia, unspecified; G89.29 Other chronic pain; M81.0 Age-related osteoporosis without current pathological fracture

== ENCOUNTER 2022-01-04 19:46 | Inpatient (IN) ==
[2022-01-04] MEDS ORDERED: KETOROLAC TROMETHAMINE 15 MG/ML VIAL IV STA ×2 (20:30→22:02)
[2022-01-04] MEDS ORDERED: SODIUM CHLORIDE 0.9% 500 ML IV ONE (20:30)
[2022-01-04] MEDS ORDERED: ACETAMINOPHEN 1,000 MG/100 ML VIAL IV STA (20:30)
[2022-01-04] MEDS ORDERED: dexAMETHasone**PF** 10 MG/ML VIAL IV ONE (20:31)
[2022-01-04] MEDS ORDERED: diazePAM 2 MG TABLET PO ONE (20:32)
--- NOTE | 2022-01-04 21:05 | Emergency Department Note ---
Impression & Plan Intractable low back pain, Parkinsons disease, Lumbosacral radiculopathy, COVID-19 ED Provider Note NAME: PEPE HOANG AGE: 71 SEX: F ARRIVES VIA: Walk-In INFORMANT: Patient, family ED PROVIDER(S): Lester Arceo MD CHIEF COMPLAINT: Back pain PLAN: Disposition: Admit MEDICAL DECISION MAKING: The patient is a 71-year-old woman with a past medical history of parkinsonism, fibromyalgia, lumbar radiculopathy who presents to the emergency department accompanied by family for worsening back pain and inability to function/ambulate since being admitted to this facility last week for the same. Per the family's understanding the patient was going to have a trial of local steroid injections but if symptoms did not respond then surgery may be considered. Patient denies any urinary retention or loss of bowel control. The patient did have an MRI performed during her last admission which demonstrated acute foraminal disc herniation on the right compressing on the exiting L5 nerve root with also evidence of marked vacuum phenomenon at L5/S1 with concern for underlying disc space collapse and instability that could risk further neural compression. The family do agree that the patient requires admission for further stabilization as she is unable to function at home. Case was discussed with Dr. Alvarado, orthopedic spine, and he will be available this weekend for inpatient team consultation. On arrival the patient is uncomfortable but no acute distress, afebrile stable vital signs. Back is Kyphotic. She has mild discomfort of the right lower lumbar region extending distally in the sciatic distribution. She has a positive right straight leg raise. Reflexes within normal limits. There is no clonus. L5 intact though does trigger pain on the right. WBC, H/H and platelets within normal limits. Chemistry without metabolic acidosis. BUN/creatinine> 30 consistent with patient's clinically dry appearance. Electrolytes and LFTs unremarkable. The patient's COVID-19 RNA, JOSE R test was positive. This finding appears incidental as the family deny any cough or congestion recently. Case was discussed with Dr. Dunne, [facility] hospitalist, who will evaluate the patient for admission. Triage Nursing notes reviewed and agree them. Prior medical records reviewed Differential diagnosis: Musculoskeletal, disc herniation, fracture, metastatic disease, cord compression, discitis, sciatica, cauda equina, infection, aortic disease, renal colic, gastrointestinal, as well as other pathologies. ER treatment provided: See below. Diagnostics interpreted by me: Cardiac Monitoring: An order for continuous cardiac monitoring was placed and demonstrated normal sinus rhythm, 83 bpm, no ectopy. Laboratory studies: See below Imaging studies: See below Consultation(s): Dr. Alvarado, orthopedic spine. Dr. Dunne, [facility] hospitalist HPI: The patient is a 71-year-old woman with a past medical history of parkinsonism, fibromyalgia, lumbar radiculopathy who presents to the emergency department accompanied by family for worsening back pain and inability to function/ambulate since being admitted to this facility last week for the same. Per the family's understanding the patient was going to have a trial of local steroid injections but if symptoms did not respond then surgery may be considered. Patient denies any urinary retention or loss of bowel control. The patient did have an MRI performed during her last admission which demonstrated acute foraminal disc herniation on the right compressing on the exiting L5 nerve root with also evidence of marked vacuum phenomenon at L5/S1 with concern for underlying disc space collapse and instability that could risk further neural compression. The family do agree that the patient requires admission for further stabilization as she is unable to function at home. ROS: See above HPI for pertinent positives & negatives. A total of 10 systems reviewed and were otherwise negative. VITALS:See Below PHYSICAL EXAMINATION: GENERAL: Awake, alert, uncomfortable/chronically ill-appearing, in no distress HENT: Normocephalic, atraumatic. Oropharynx with dry mucous membranes and otherwise unremarkable. EYES: Normal conjunctiva. Sclera non-icteric. NECK: Supple. No nuchal rigidity. FROM. No JVD. RESPIRATORY: Clear to auscultation. CARDIAC: Regular rate, normal rhythm. Extremities warm and well perfused. Pulses equal. ABDOMEN: Soft, non-distended. No tenderness to palpation. No rebound or guarding. No masses. RECTAL: Deferred. MUSCULOSKELETAL: Chest examination reveals no tenderness. The back is kyphotic. Mild discomfort of the right lower lumbar region extending distally in the sc iatic distribution. She has a positive right straight leg raise. There is no CVA tenderness to palpation. No joint edema. LOWER EXTREMITIES: Calves are equal size bilaterally and non-tender. No edema. No discoloration. NEURO: Baseline resting tremor. No focal sensory or motor deficits noted. Reflex es within normal limits. There is no clonus. L5 intact though does trigger pain on the right. SKIN: No rash or jaundice noted. Lester Arceo MD Past Med/Surg History Medical History Benign familial tremor Fibromyalgia Hyperlipidemia, unspecified Migraine without aura and without status migrainosus, not intractable Osteoporosis, unspecified Parkinsonism Vitamin D deficiency Surgical History History of cataract surgery (2020) Both eyes S/P tonsillectomy and adenoidectomy S/P tooth extraction Family History Father Myocardial infarction Coronary heart disease Tremor Stroke Mother , age 79 Pancreatic cancer Brother Tremor Melanoma Grandmother (Maternal) Crohn's colitis Daughter Crohn's colitis Denies family history of Ovarian cancer Prostate cancer Diabetes Breast cancer Lung cancer Colorectal cancer Social History Smoking Status: Unknown if ever smoked Second Hand Exposure: No; Hx Alcohol Use: No Hx Substance Use: No Preferred Language: Occitan Communication Ability: Effective Visual Impairment: No Limitations Hearing Ability: Normal 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: No Beliefs That Will Affect Care: None marital status: / Current Living Situation: Family current occupational status: retired Other Information That Helps Us Care for You: No other: Methods 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 Feels Safe at Home: Yes Safety Concerns: Feels Safe At This Time Childhood Exposure to Second-Hand Smoke: No Diet Comment: regular caffeine: No during the past year weight has: remained stable Dental Care, Regularly: Yes Physical Activity Frequency: Daily Physical Activity Frequency Comment: Walking Seatbelt Use: always Sunscreen Use: Yes Assistive Devices: None Allergies Allergies Allergy/AdvReac Type Severity Reaction Status Date / Time No Known Drug Allergies Allergy nkda Verified 01/04/22 23:09 Home Meds Home Medications Medication Instructions Recorded Confirmed acetaminophen 500 mg tablet 1,000 mg PO TID PRN Pain #90 tabs 11/20/18 01/04/22 cholecalciferol (vitamin D3) 25 3,000 unit PO DAILY 02/28/20 01/04/22 mcg (1,000 unit) capsule Previous Rx's Medication Instructions Recorded propranolol 160 mg capsule,24 160 mg PO DAILY #90 caps 04/13/21 hr,extended release ropinirole 1 mg tablet 1 mg PO TID #90 tabs 09/11/21 duloxetine 60 mg capsule,delayed 60 mg PO DAILY #90 caps 09/21/21 release cyclobenzaprine 5 mg tablet 5 mg PO TID PRN muscle spasm #20 11/13/21 tabs carbidopa 25 mg-levodopa 100 mg 1 tab PO TID 90 days #270 tabs 12/17/21 tablet gabapentin 300 mg capsule 300 mg PO BID #60 caps 12/23/21 oxycodone 5 mg tablet 5 - 10 mg PO Q6H PRN 12/23/21 moderate-severe pain #20 tabs Results & Data (ED) Vital Signs Vital Signs - 24 hr 01/04/22 19:47 01/04/22 21:05 01/04/22 22:17 Temperature 36.0 C L Temperature Source Temporal Artery Scan Pulse Rate 95 H 79 87 Pulse Rate from SpO2 Sensor 80 88 Respiratory Rate 20 20 21 Blood Pressure 147/94 H 138/95 129/106 H Blood Pressure Mean 111 109 113 Pulse Oximetry 92 96 92 Oxygen Delivery Method Room Air Room Air Room Air Sepsis New/Unexplained Change in Mental Status N/A Sepsis Action Taken by Nursing No Action Required Laboratory Data Attestation: I reviewed the patient's lab results. Result diagrams: 01/04/22 20:45 01/04/22 20:45 Lab Results 01/04/22 01/04/22 01/04/22 Range/Units 20:31 20:45 20:45 WBC 10.50 (4.8-10.8) K/ul RBC 4.93 (3.93-5.22) M/uL Hgb 14.7 (12.0-16.0) g/dl Hct 43.4 (34.1-44.9) % MCV 88.0 (80.0-100.0) fL MCH 29.8 (25.0-34.0) pg MCHC 33.9 (32.0-36.0) g/dL RDW Std Deviation 41.4 (36.4-46.3) fL RDW Coeff of Karla 12.8 (11.5-14.5) % Plt Count 280 (130-400) K/uL MPV 10.5 (9.4-12.3) fL Immature Gran % (Auto) 0.2 % Neut % (Auto) 70.8 % Lymph % (Auto) 17.3 % [place] % (Auto) 10.6 % Eos % (Auto) 0.9 % Baso % (Auto) 0.2 % Neut # (Auto) 7.44 H (1.4-6.5) K/uL Lymph # (Auto) 1.82 (1.2-3.4) K/uL [place] # (Auto) 1.11 H (0.24-0.82) K/uL Eos # (Auto) 0.09 (0-0.50) K/uL Baso # (Auto) 0.02 (0-0.2) K/uL Immature Gran # (Auto) 0.02 (0.00-0.02) K/uL Sodium 138 (136-145) mmol/L Potassium 3.9 (3.5-5.1) mmol/L Chloride 107 (98-107) mmol/L Carbon Dioxide 22 (21-32) mmol/L Anion Gap 9 (3-11) BUN 23 (6-23) mg/dl Creatinine 0.64 (0.6-1.2) mg/dl Est Cr Clr Drug Dosing Not Reportable Est GFR ( Amer) 104.1 ml/min Est GFR (Non-Af Amer) 89.8 ml/min BUN/Creatinine Ratio 35.9 H (10-20) Glucose 102 H (70-99(Fasting)) mg/dl Calcium 9.0 (8.5-10.1) mg/dl Phosphorus 3.5 (2.5-4.9) mg/dl Magnesium 2.0 (1.7-2.4) mg/dl Total Bilirubin 0.9 (0.2-1.0) mg/dl AST 18 (13-39) U/L ALT 17 (7-52) U/L Alkaline Phosphatase 68 (34-104) U/L Total Protein 6.7 (6.0-8.3) gm/dl Albumin 4.2 (3.4-5.0) gm/dl Globulin 2.5 (2.5-4.0) gm/dl Albumin/Globulin Ratio 1.7 (0.9-2) SARS-CoV-2, RNA, NAAT POSITIVE A* (NEGATIVE) Administered Medications Dexamethasone Sodium Phosphate (DexamethasonePf 10 Mg/Ml Vial) 10 mg IV NOW ONE Stop: 01/04/22 20:32 Last Admin: 01/04/22 21:00 Dose: 10 mg Documented By: LOUISA Diazepam (Diazepam 2 Mg Tablet) 1 mg PO NOW ONE Stop: 01/04/22 20:33 Last Admin: 01/04/22 20:55 Dose: 1 mg Documented By: LOUISA Sodium Chloride (Nss) 500 mls @ 999 mls/hr IV .Q31M ONE Stop: 01/04/22 21:00 Last Infusion: 01/04/22 21:58 Dose: 0 mls/hr Documented By: Admin: 01/04/22 20:55 Dose: 999 mls/hr Documented By: LOUISA Acetaminophen (Ofirmev) 1,000 mg in 100 mls @ 400 mls/hr IV NOW STA Stop: 01/04/22 20:44 Last Infusion: 01/04/22 21:57 Dose: 0 mls/hr Documented By: Admin: 01/04/22 21:01 Dose: 400 mls/hr Documented By: LOUISA Ketorolac Tromethamine (Ketorolac Tromethamine 15 Mg/Ml Vial) 15 mg IV NOW STA Stop: 01/04/22 20:31 Last Admin: 01/04/22 20:58 Dose: 15 mg Documented By: LOUISA Ketorolac Tromethamine (Ketorolac Tromethamine 15 Mg/Ml Vial) 15 mg IV NOW STA Stop: 01/04/22 22:03 Last Admin: 01/04/22 22:10 Dose: 15 mg Documented By: LOUISA Morphine Sulfate (Morphine Sulfate 2 Mg/Ml Carp) 2 mg IV NOW STA Stop: 01/04/22 22:03 Last Admin: 01/04/22 22:12 Dose: 2 mg Documented By: LOUISA Oxycodone HCl (Oxycodone Hcl Ir 5 Mg Tab (Immediate Release)) 10 mg PO Q6H PRN PRN Reason: moderate-severe pain Stop: 01/19/22 01:47 Last Admin: 01/05/22 02:51 Dose: 10 mg Documented By: STUART Discharge Plan Visit Data Chief Complaint: Back Injury/Pain Stated Complaint: SEVERE BACK PAIN ED Provider: Lester Arceo Discharge Problem: Intractable low back pain, Parkinsons disease, Lumbosacral radiculopathy, COVID-19 Discharge Instructions Interventions: ED Discharge Assessment Last Done: 01/05/22 01:00
[2022-01-04 21:20] LABS: Alanine Aminotransferase 17 U/L (7-52); Albumin Globulin Ratio 1.7 (0.9-2); Albumin Level 4.2 gm/dl (3.4-5.0); Alkaline Phosphatase 68 U/L (34-104); Anion Gap 9 (3-11); Aspartate Aminotransferase 18 U/L (13-39); BUN Creatinine Ratio 35.9 (10-20); Bilirubin,Total 0.9 mg/dl (0.2-1.0); Blood Urea Nitrogen 23 mg/dl (6-23); Carbon Dioxide 22 mmol/L (21-32); Chloride 107 mmol/L (98-107); Est GFR (African American) 104.1 ml/min; Est GFR (Non-African American) 89.8 ml/min; Globulin 2.5 gm/dl (2.5-4.0); Glucose 102 mg/dl (70-99(Fasting)); Phosphorus 3.5 mg/dl (2.5-4.9); Potassium 3.9 mmol/L (3.5-5.1); Sodium 138 mmol/L (136-145); Total Protein 6.7 gm/dl (6.0-8.3)
[2022-01-04 21:26] LABS: Basophils # (auto) 0.02 K/uL (0-0.2); Basophils % (auto) 0.2 %; Eosinophils # (auto) 0.09 K/uL (0-0.50); Eosinophils % (auto) 0.9 %; Hematocrit (blood only) 43.4 % (34.1-44.9); Hemoglobin 14.7 g/dl (12.0-16.0); Immature Granulocytes # (auto) 0.02 K/uL (0.00-0.02); Immature Granulocytes % (auto) 0.2 %; Lymphocytes # (auto) 1.82 K/uL (1.2-3.4); Lymphocytes % (auto) 17.3 %; Mean Corpuscular Hemoglobin 29.8 pg (25.0-34.0); Mean Corpuscular Hgb Conc 33.9 g/dL (32.0-36.0); Mean Platelet Volume 10.5 fL (9.4-12.3); Monocytes # (auto) 1.11 K/uL (0.24-0.82); Monocytes % (auto) 10.6 %; Neutrophils # (auto) 7.44 K/uL (1.4-6.5); Neutrophils % (auto) 70.8 %; Platelet Count 280 K/uL (130-400); RDW Coefficient of Variation 12.8 % (11.5-14.5); RDW Standard Deviation 41.4 fL (36.4-46.3); Red Blood Count 4.93 M/uL (3.93-5.22)
[2022-01-04] MEDS ORDERED: MoRPHine SULFATE 2 MG/ML CARP IV STA (22:02)
--- NOTE | 2022-01-04 22:38 | History & Physical Report ---
Date of Service January 04, 2022 Assessment & Plan (1) Back pain: Plan: 71yo female with history of chronic back pain with lumbar radiculopathy presenting with acute worsening of pain and spasm. Patient is unable to ambulate at home secondary to pain. She does not experience weakness, numbness or tingling in the legs. -Admit to medical -Tylenol 1000mg po TID -Flexeril 5mg po TID -Oxycodone 10mg po q6 hours PRN -Gabapentin 300 mg po BID -Lidoderm patch -Morphine PRN -Heat -Orthopedic Surgery consultation appreciated (2) COVID-19: Plan: Patient found to be POSITIVE for Covid-19. She has had mild symptoms. Adequate oxygenation on room air. -Isolation precautions -Monitor respiratory status (3) Parkinsons disease: Plan: Chronic. Stable -Continue Carbidopa/Levodopa daily (4) Fibromyalgia: Plan: Chronic -Continue Cymbalta 60mg po daily History of Present Illness Chief Complaint: back pain Primary Care Provider: Jasmin Polanco DO Samira Yepez is a 71yo with history of Parkinson disease, chronic low back pain with sciatica, Fibromyalgia, HLP. She was recently admitted to [facility] from - 12/23/21 with worsening low back pain. During that hospital stay she had an MRI performed which revealed disc disease, bulging without stenosis as well as an acute foraminal disc herniation on the right that could be compressing the exiting L5 nerve root. Also with vacuum phenomenon at L5-S1 disc. She was discharged with Gabapentin 300mg po BID as well as Oxycodone. Patient returns to the ER today with complaint of worsening back pain, inability to ambulate at home. She typically uses a walker but has been having increasing difficulty with that over the last several days. She needed to be carried by her family members on several occasions. She reports severe pain in the right lumbar region as well as spasms. She denies radiation of the pain, numbness, tingling, weakness or change in bowel or bladder control. No fall or trauma. No fever. Patient with no additional complaints. She has had some mild cough and fatigue as well as subjective fevers for the last several days. Daughter is concerned because patient was having questionable hallucinations and was wondering if her medication may be to blame. ER Course: Toradol, Morphine 2mg, Ice, Tylenol, Dexamethasone, Diazepam Allergies Allergy/AdvReac Type Severity Reaction Status Date / Time No Known Drug Allergies Allergy nkda Verified 01/04/22 23:09 Home Medications Medication Instructions Recorded Confirmed Type acetaminophen 500 mg tablet 1,000 mg PO TID PRN Pain #90 tabs 11/20/18 01/04/22 History cholecalciferol (vitamin D3) 25 3,000 unit PO DAILY 02/28/20 01/04/22 History mcg (1,000 unit) capsule propranolol 160 mg capsule,24 160 mg PO DAILY #90 caps 04/13/21 01/04/22 Rx hr,extended release ropinirole 1 mg tablet 1 mg PO TID #90 tabs 09/11/21 01/04/22 Rx duloxetine 60 mg capsule,delayed 60 mg PO DAILY #90 caps 09/21/21 01/04/22 Rx release cyclobenzaprine 5 mg tablet 5 mg PO TID PRN muscle spasm #20 11/13/21 01/04/22 Rx tabs carbidopa 25 mg-levodopa 100 mg 1 tab PO TID 90 days #270 tabs 12/17/21 01/04/22 Rx tablet gabapentin 300 mg capsule 300 mg PO BID #60 caps 12/23/21 01/04/22 Rx oxycodone 5 mg tablet 5 - 10 mg PO Q6H PRN 12/23/21 01/04/22 Rx moderate-severe pain #20 tabs Past Med/Surg History Medical History Benign familial tremor Fibromyalgia Hyperlipidemia, unspecified Migraine without aura and without status migrainosus, not intractable Osteoporosis, unspecified Parkinsonism Vitamin D deficiency Surgical History History of cataract surgery (2020) Both eyes S/P tonsillectomy and adenoidectomy S/P tooth extraction Family History Father Myocardial infarction Coronary heart disease Tremor Stroke Mother , age 79 Pancreatic cancer Brother Tremor Melanoma Grandmother (Maternal) Crohn's colitis Daughter Crohn's colitis Denies family history of Ovarian cancer Prostate cancer Diabetes Breast cancer Lung cancer Colorectal cancer Social History Smoking Status: Never smoker Second Hand Exposure: No; Hx Alcohol Use: Yes Alcohol type: beer Hx Substance Use: No Preferred Language: Cameroonian Communication Ability: Effective Visual Impairment: No Limitations Hearing Ability: Normal Health Information Administrator Required: No Beliefs That Will Affect Care: None marital status: / Current Living Situation: Significant Other current occupational status: retired other: [employer] Feels Safe at Home: Yes Childhood Exposure to Second-Hand Smoke: No Diet Comment: regular caffeine: No during the past year weight has: remained stable Dental Care, Regularly: Yes Physical Activity Frequency: Daily Physical Activity Frequency Comment: Walking Seatbelt Use: always Sunscreen Use: Yes Assistive Devices: None Review of Systems Review of Systems: All systems reviewed & are unremarkable except as noted in HPI & below Physical Exam Physical Exam: General: patient in moderate distress secondary to back pain and spasm. She is rocking back in forth in the bed, family at bedside and are massaging her back and legs. Skin: warm, dry, intact, no rashes or lesions HEENT: NC/AT, PERRL, EOMI, anicteric sclera, conjunctiva without injection, external ear normal to inspection and nontender, nares patent, moist mucus membranes, dentition intact, no oropharyngeal lesions, neck supple, trachea mi dline, no LAD, no thyromegaly, no JVD Heart: +S1/S2, regular, no m/r/g Lungs: equal air entry bilaterally, no rales/rhonchi/wheezes Abd: +BS, soft, NT/ND, no masses/organomegaly/ascites Ext: warm, 2+ pulses in UE/LE bilaterally, no clubbing/cyanosis or edema Neuro: nonfocal, patient AA&O x 4, speech intact, no facial droop, moving all extremities on command with equal strength 5/5 Results & Data Results & Data ([facility]) Vital Signs (Past 12 Hours) Vital Signs Temp Pulse Resp BP Pulse Ox O2 Del Method 01/04/22 22:17 87 21 129/106 H 92 Room Air 01/04/22 21:05 79 20 138/95 96 Room Air 01/04/22 19:47 36.0 C L 95 H 20 147/94 H 92 Room Air Laboratory Results Laboratory Results WBC 10.50 K/ul (4.8-10.8) 01/04/22 20:45 RBC 4.93 M/uL (3.93-5.22) 01/04/22 20:45 Hgb 14.7 g/dl (12.0-16.0) 01/04/22 20:45 Hct 43.4 % (34.1-44.9) 01/04/22 20:45 MCV 88.0 fL (80.0-100.0) 01/04/22 20:45 MCH 29.8 pg (25.0-34.0) 01/04/22 20:45 MCHC 33.9 g/dL (32.0-36.0) 01/04/22 20:45 RDW Std Deviation 41.4 fL (36.4-46.3) 01/04/22 20:45 RDW Coeff of Karla 12.8 % (11.5-14.5) 01/04/22 20:45 Plt Count 280 K/uL (130-400) 01/04/22 20:45 MPV 10.5 fL (9.4-12.3) 01/04/22 20:45 Immature Gran % (Auto) 0.2 % 01/04/22 20:45 Neut % (Auto) 70.8 % 01/04/22 20:45 Lymph % (Auto) 17.3 % 01/04/22 20:45 [place] % (Auto) 10.6 % 01/04/22 20:45 Eos % (Auto) 0.9 % 01/04/22 20:45 Baso % (Auto) 0.2 % 01/04/22 20:45 Neut # (Auto) 7.44 K/uL (1.4-6.5) H 01/04/22 20:45 Lymph # (Auto) 1.82 K/uL (1.2-3.4) 01/04/22 20:45 [place] # (Auto) 1.11 K/uL (0.24-0.82) H 01/04/22 20:45 Eos # (Auto) 0.09 K/uL (0-0.50) 01/04/22 20:45 Baso # (Auto) 0.02 K/uL (0-0.2) 01/04/22 20:45 Immature Gran # (Auto) 0.02 K/uL (0.00-0.02) 01/04/22 20:45 Sodium 138 mmol/L (136-145) 01/04/22 20:45 Potassium 3.9 mmol/L (3.5-5.1) 01/04/22 20:45 Chloride 107 mmol/L (98-107) 01/04/22 20:45 Carbon Dioxide 22 mmol/L (21-32) 01/04/22 20:45 Anion Gap 9 (3-11) 01/04/22 20:45 BUN 23 mg/dl (6-23) 01/04/22 20:45 Creatinine 0.64 mg/dl (0.6-1.2) 01/04/22 20:45 Est Cr Clr Drug Dosing Not Reportable 01/04/22 20:45 Est GFR ( Amer) 104.1 ml/min 01/04/22 20:45 Est GFR (Non-Af Amer) 89.8 ml/min 01/04/22 20:45 BUN/Creatinine Ratio 35.9 (10-20) H 01/04/22 20:45 Glucose 102 mg/dl (70-99(Fasting)) H 01/04/22 20:45 Calcium 9.0 mg/dl (8.5-10.1) 01/04/22 20:45 Phosphorus 3.5 mg/dl (2.5-4.9) 01/04/22 20:45 Magnesium 2.0 mg/dl (1.7-2.4) 01/04/22 20:45 Total Bilirubin 0.9 mg/dl (0.2-1.0) 01/04/22 20:45 AST 18 U/L (13-39) 01/04/22 20:45 ALT 17 U/L (7-52) 01/04/22 20:45 Alkaline Phosphatase 68 U/L (34-104) 01/04/22 20:45 Total Protein 6.7 gm/dl (6.0-8.3) 01/04/22 20:45 Albumin 4.2 gm/dl (3.4-5.0) 01/04/22 20:45 Globulin 2.5 gm/dl (2.5-4.0) 01/04/22 20:45 Albumin/Globulin Ratio 1.7 (0.9-2) 01/04/22 20:45 SARS-CoV-2, RNA, NAAT POSITIVE (NEGATIVE) A* 01/04/22 20:31 Code Status & VTE Plan VTE Prophylaxis Plan VTE Prophylaxis will be ordered: Yes PG Care Time/CCT Total # of Minutes Spent Total Time Spent with Patient: Total time spent is greater than 50% in coordination of care (as documented) at patient's floor/unit and/or counseling patient: Coding Level of Care Code 38657 Initial Inpt Care Lvl 3 Diagnoses Back pain M54.9 COVID-19 U07.1 Parkinsons disease G20 Fibromyalgia M79.7
[2022-01-05] MEDS ORDERED: DOCUSATE SODIUM 100 MG CAP PO PRN (01:48)
[2022-01-05] MEDS ORDERED: MoRPHine SULFATE 4 MG/ML 1 ML CARP\\VIAL IV PRN ×2 (01:48→15:14)
[2022-01-05] MEDS ORDERED: oxyCODONE HCL IR 5 MG TAB (IMMEDIATE RELEASE) PO PRN ×2 (01:48→15:14)
[2022-01-05] MEDS ORDERED: CYCLOBENZAPRINE HCL 5 MG TAB PO PRN (01:48)
[2022-01-05] MEDS ORDERED: MoRPHine SULFATE 2 MG/ML CARP IV PRN (01:48)
[2022-01-05] MEDS ORDERED: ONDANSETRON INJ 2 MG/ML 2 ML VIAL IV PRN (01:48)
[2022-01-05 05:31] LABS: Basophils # (auto) 0.01 K/uL (0-0.2); Basophils % (auto) 0.1 %; Hematocrit (blood only) 44.1 % (34.1-44.9); Immature Granulocytes # (auto) 0.02 K/uL (0.00-0.02); Immature Granulocytes % (auto) 0.2 %; Lymphocytes # (auto) 0.94 K/uL (1.2-3.4); Lymphocytes % (auto) 10.3 %; Mean Corpuscular Hemoglobin 29.6 pg (25.0-34.0); Mean Corpuscular Volume 87.2 fL (80.0-100.0); Mean Platelet Volume 10.5 fL (9.4-12.3); Monocytes # (auto) 0.13 K/uL (0.24-0.82); Monocytes % (auto) 1.4 %; Neutrophils # (auto) 8.05 K/uL (1.4-6.5); Platelet Count 291 K/uL (130-400); RDW Coefficient of Variation 12.8 % (11.5-14.5); RDW Standard Deviation 40.6 fL (36.4-46.3); Red Blood Count 5.06 M/uL (3.93-5.22); White Blood Count 9.15 K/ul (4.8-10.8)
[2022-01-05 05:48] LABS: Albumin Level 4.1 gm/dl (3.4-5.0); BUN Creatinine Ratio 34.3 (10-20); Bilirubin Direct 0.1 mg/dl (0-0.2); Calcium 9.3 mg/dl (8.5-10.1); Creatinine Clr Calc Pharmacy 87.7 ml/min; Est GFR (Non-African American) 87.2 ml/min; Total Protein 6.7 gm/dl (6.0-8.3)
[2022-01-05] MEDS: ENOXAPARIN INJ 40 MG/0.4 ML SYR SQ SCH (07:53)
[2022-01-05] MEDS: GABAPENTIN 300 MG CAP PO SCH ×2 (07:53→20:40)
[2022-01-05] MEDS: DULoxetine HCL 60 MG CAP PO SCH (07:53)
[2022-01-05] MEDS: CARBIDOPA/LEVODOPA 25/100MG TAB PO SCH ×3 (07:54→20:41)
[2022-01-05] MEDS: LIDOCAINE 5% 1 PATCH TD SCH (07:54)
[2022-01-05] MEDS: PROPRANOLOL HCL LA 80 MG CAPCR PO SCH (07:54)
[2022-01-05] MEDS: rOPINIRole HCL 1 MG TABLET PO SCH ×3 (07:55→20:39)
[2022-01-05] MEDS ORDERED: ACETAMINOPHEN 500 MG TAB ONE (07:58)
[2022-01-05] MEDS: ACETAMINOPHEN 500 MG TAB PO SCH ×3 (08:01→23:14)
[2022-01-05] MEDS ORDERED: dexAMETHasone 6 MG in SYRINGE 0 ML IV SCH (15:15)
[2022-01-05] MEDS ORDERED: dexAMETHasone 1 MG TAB PO SCH (15:30)
--- NOTE | 2022-01-05 15:52 | Hospitalist Progress Note ---
Date of Service January 05, 2022 Assessment & Plan (1) Back pain: Plan: 71yo female with history of chronic back pain with right sided lumbar radiculopathy presenting with acute worsening of pain and spasm. Patient is unable to ambulate at home secondary to pain. She does not experience weakness, numbness or tingling in the legs. Also with some confusion over the last week Prefers to have opinion from NS at [facility] as an outpatient for surgery and realizes she won't be able to have surgery until COVID quarantine is up. Has toxic encephalopathy from oxycodone use most likely -dc oxycodone -start tramadol prn mod-severe pain as she has tolerated this in the past -continue Tylenol 1000mg po TID -Flexeril 5mg po TID -continue Gabapentin 300 mg po BID -continue Lidoderm patch -dc morphine due to confusion -Heat -Orthopedic Surgery consultation appreciated -add PT/OT -ask CM to make referral to NS at [facility] -hopeful for dc to home tomorrow once confusion improved (2) Toxic encephalopathy: Plan: as above dc oxycodone monitor perhaps COVID causing some of the confusion but doubtful (3) COVID-19: Plan: Patient found to be POSITIVE for Covid-19. She has no symptoms. Adequate oxygenation on room air. -Isolation precautions -Monitor respiratory status no need for treatment (4) Parkinsons disease: Plan: Chronic. Stable -Continue Carbidopa/Levodopa, propranolol (5) Fibromyalgia: Plan: Chronic -Continue Cymbalta 60mg po daily Plan Dispo-continued stay, dc to home tomorrow possibly with home health ordered PT/OT Discussed care with sister and daughter Admission and Anticipated Discharge Date Admission Date: January 04, 2022 Subjective Pt has been more confused over the last week as per pt's sister. Has been seeing things that aren't there. She had a fall in the room today and was found sitting on the ground by the toilet. She has a bruise on her left elbow and bruise on right lower back. Otherwise denies headache, pain anywhere else except her usual pain in lower back radiating down her RLE. She initially tells me she sees older ladies outside the door crying about what happened to her...and then realizes that's not real. She is oriented and has good recall otherwise. Reports she prefers to get an opinion from Neurosurgery regarding her back for surgery at [facility] and does NOT want to go to a rehab facility. She prefers to go home. Review of Systems Review of Systems: All systems reviewed & are unremarkable except as noted in HPI & below denies headache, SOB, cough, fevers/chills Physical Exam Constitutional: WD/WN, vitals as above Neck: trachea midline, no thyromegaly Respiratory: normal respiratory effort, lungs clear to auscultation Cardiovascular: RRR, no murmur, no edema Chest (Breasts): Chest: normal inspection of chest Gastrointestinal (Abdomen): normal bowel sounds, soft, nontender, no hepatosp lenomegaly Musculoskeletal: Extremities: extremities normal to inspection; no cyanosis and no clubbing Skin: no rashes, warm and dry Neurologic: CN's II-XI intact bilaterally, moves all extremities, awake and + confused (mild); no focal motor deficits Speech / Cognition: normal speech Motor/Sensory: + tremor (resting tremor in arms) Psychiatric: Orientation: alert, oriented to person, oriented to place and cooperative Hallucinations: + visual hallucinations Lymphatic: no lymphedema Results & Data Results & Data ([facility]) Vital Signs (Past 12 Hours) Vital Signs Temp Pulse Resp BP Pulse Ox O2 Del Method 01/05/22 10:05 36.6 C 95 H 16 181/22 H 94 Room Air Laboratory Results 01/05/22 01/05/22 01/05/22 Range/Units 04:48 04:48 02:55 WBC 9.15 (4.8-10.8) K/ul RBC 5.06 (3.93-5.22) M/uL Hgb 15.0 (12.0-16.0) g/dl Hct 44.1 (34.1-44.9) % MCV 87.2 (80.0-100.0) fL MCH 29.6 (25.0-34.0) pg MCHC 34.0 (32.0-36.0) g/dL RDW Std Deviation 40.6 (36.4-46.3) fL RDW Coeff of Karla 12.8 (11.5-14.5) % Plt Count 291 (130-400) K/uL MPV 10.5 (9.4-12.3) fL Immature Gran % (Auto) 0.2 % Neut % (Auto) 88.0 % Lymph % (Auto) 10.3 % [place] % (Auto) 1.4 % Eos % (Auto) 0.0 % Baso % (Auto) 0.1 % Neut # (Auto) 8.05 H (1.4-6.5) K/uL Lymph # (Auto) 0.94 L (1.2-3.4) K/uL [place] # (Auto) 0.13 L (0.24-0.82) K/uL Eos # (Auto) 0.00 (0-0.50) K/uL Baso # (Auto) 0.01 (0-0.2) K/uL Immature Gran # (Auto) 0.02 (0.00-0.02) K/uL Sodium 138 (136-145) mmol/L Potassium 4.0 (3.5-5.1) mmol/L Chloride 108 H (98-107) mmol/L Carbon Dioxide 21 (21-32) mmol/L Anion Gap 9 (3-11) BUN 24 H (6-23) mg/dl Creatinine 0.70 (0.6-1.2) mg/dl Est Cr Clr Drug Dosing 87.7 Est GFR ( Amer) 101.0 ml/min Est GFR (Non-Af Amer) 87.2 ml/min BUN/Creatinine Ratio 34.3 H (10-20) Glucose 133 H (70-99(Fasting)) mg/dl Calcium 9.3 (8.5-10.1) mg/dl Phosphorus (2.5-4.9) mg/dl Magnesium (1.7-2.4) mg/dl Total Bilirubin 1.0 (0.2-1.0) mg/dl Direct Bilirubin 0.1 (0-0.2) mg/dl AST 19 (13-39) U/L ALT 29 (7-52) U/L Alkaline Phosphatase 66 (34-104) U/L Total Protein 6.7 (6.0-8.3) gm/dl Albumin 4.1 (3.4-5.0) gm/dl Globulin (2.5-4.0) gm/dl Albumin/Globulin Ratio (0.9-2) Nasal Screen MRSA (PCR) Negative (Negative) SARS-CoV-2, RNA, NAAT (NEGATIVE) 01/04/22 01/04/22 01/04/22 Range/Units 20:45 20:45 20:31 WBC 10.50 (4.8-10.8) K/ul RBC 4.93 (3.93-5.22) M/uL Hgb 14.7 (12.0-16.0) g/dl Hct 43.4 (34.1-44.9) % MCV 88.0 (80.0-100.0) fL MCH 29.8 (25.0-34.0) pg MCHC 33.9 (32.0-36.0) g/dL RDW Std Deviation 41.4 (36.4-46.3) fL RDW Coeff of Karla 12.8 (11.5-14.5) % Plt Count 280 (130-400) K/uL MPV 10.5 (9.4-12.3) fL Immature Gran % (Auto) 0.2 % Neut % (Auto) 70.8 % Lymph % (Auto) 17.3 % [place] % (Auto) 10.6 % Eos % (Auto) 0.9 % Baso % (Auto) 0.2 % Neut # (Auto) 7.44 H (1.4-6.5) K/uL Lymph # (Auto) 1.82 (1.2-3.4) K/uL [place] # (Auto) 1.11 H (0.24-0.82) K/uL Eos # (Auto) 0.09 (0-0.50) K/uL Baso # (Auto) 0.02 (0-0.2) K/uL Immature Gran # (Auto) 0.02 (0.00-0.02) K/uL Sodium 138 (136-145) mmol/L Potassium 3.9 (3.5-5.1) mmol/L Chloride 107 (98-107) mmol/L Carbon Dioxide 22 (21-32) mmol/L Anion Gap 9 (3-11) BUN 23 (6-23) mg/dl Creatinine 0.64 (0.6-1.2) mg/dl Est Cr Clr Drug Dosing Not Reportable Est GFR ( Amer) 104.1 ml/min Est GFR (Non-Af Amer) 89.8 ml/min BUN/Creatinine Ratio 35.9 H (10-20) Glucose 102 H (70-99(Fasting)) mg/dl Calcium 9.0 (8.5-10.1) mg/dl Phosphorus 3.5 (2.5-4.9) mg/dl Magnesium 2.0 (1.7-2.4) mg/dl Total Bilirubin 0.9 (0.2-1.0) mg/dl Direct Bilirubin (0-0.2) mg/dl AST 18 (13-39) U/L ALT 17 (7-52) U/L Alkaline Phosphatase 68 (34-104) U/L Total Protein 6.7 (6.0-8.3) gm/dl Albumin 4.2 (3.4-5.0) gm/dl Globulin 2.5 (2.5-4.0) gm/dl Albumin/Globulin Ratio 1.7 (0.9-2) Nasal Screen MRSA (PCR) (Negative) SARS-CoV-2, RNA, NAAT POSITIVE A* (NEGATIVE) PG Care Time/CCT Total # of Minutes Spent Total Time Spent with Patient: Total time spent is greater than 50% in coordination of care (as documented) at patient's floor/unit and/or counseling patient: Coding Level of Care Code 68455 Subseq Hosp Care Lvl 2 Diagnoses Back pain M54.9 Toxic encephalopathy G92.9 COVID-19 U07.1 Parkinsons disease G20 Fibromyalgia M79.7
[2022-01-05] MEDS: traMADol HCL 50 MG TABLET PO PRN (20:42)
[2022-01-06] MEDS: traMADol HCL 50 MG TABLET PO PRN (05:33)
[2022-01-06] MEDS: DULoxetine HCL 60 MG CAP PO SCH (08:57)
[2022-01-06] MEDS: ACETAMINOPHEN 500 MG TAB PO SCH ×3 (08:57→23:48)
[2022-01-06] MEDS: CARBIDOPA/LEVODOPA 25/100MG TAB PO SCH ×3 (08:57→20:12)
[2022-01-06] MEDS: GABAPENTIN 300 MG CAP PO SCH ×2 (08:57→20:13)
[2022-01-06] MEDS: rOPINIRole HCL 1 MG TABLET PO SCH ×3 (08:58→20:14)
[2022-01-06] MEDS: LIDOCAINE 5% 1 PATCH TD SCH (08:58)
[2022-01-06] MEDS: PROPRANOLOL HCL LA 80 MG CAPCR PO SCH (08:58)
[2022-01-06] MEDS: ENOXAPARIN INJ 40 MG/0.4 ML SYR SQ SCH (08:59)
--- NOTE | 2022-01-06 13:38 | Hospitalist Progress Note ---
Date of Service January 06, 2022 Assessment & Plan (1) Back pain: Plan: 71yo female with history of chronic back pain with right sided lumbar radiculopathy presenting with acute worsening of pain and spasm. Patient is unable to ambulate at home secondary to pain. She does not experience weakness, numbness or tingling in the legs. Also with some confusion over the last week which was likely related to oxycodone-now resolved since oxycodone discontinued Prefers to have opinion from NS at [facility] as an outpatient for surgery and realizes she won't be able to have surgery until COVID quarantine is up. Has toxic encephalopathy from oxycodone use most likely -Have discontinued oxycodone -started tramadol prn mod-severe pain as she has tolerated this in the past and is tolerating this well here, it is controlling some of her pain -continue Tylenol 1000mg po TID -Continue discontinued Flexeril 5mg po TID -continue Gabapentin 300 mg po BID -continue Lidoderm patch -Discontinued morphine due to confusion -Orthopedic Surgery consultation appreciated-discussed with Dr. Alvarado-he is reviewed the images and agrees with her getting a second opinion from neurosurgery at [facility] -Awaiting PT/OT -ask CM to make referral to NS at [facility] as an outpatient Patient is requiring a hospital bed at home on discharge. She has a condition that requires positioning of the body in ways not feasible in an ordinary bed in order to alleviate pain Case management working to set up hospital bed and bedside table at home in order for discharge on Friday (2) Toxic encephalopathy: Plan: as above, secondary to oxycodone dc oxycodone perhaps COVID causing some of the confusion but doubtful Now resolved (3) COVID-19: Plan: Patient found to be POSITIVE for Covid-19. She continues to have no symptoms. Continues to maintain adequate oxygenation on room air. -Continue isolation precautions -Monitor respiratory status no need for treatment (4) Parkinsons disease: Plan: Chronic. Stable -Continue Carbidopa/Levodopa, propranolol (5) Fibromyalgia: Plan: Chronic -Continue Cymbalta 60mg po daily Plan Dispo-continued stay, dc to home tomorrow possibly with home health ordered PT/OT Discussed care with sister at the bedside Admission and Anticipated Discharge Date Admission Date: January 04, 2022 Subjective Patient much less confused today and her sister at the bedside agrees. She feels her pain down the right lower extremity is still present but improves with tramadol. She is eating and drinking, denies headache or runny nose, no sore throat, no cough, no shortness of breath or chest pain. No abdominal pain. No bowel movement since admission, no diarrhea. She was able to get up with 2 people assisting to bedside commode in the bedside chair today for a little bit. Review of Systems Review of Systems: All systems reviewed & are unremarkable except as noted in HPI & below Physical Exam Constitutional: WD/WN, vitals as above Eyes: + anicteric sclerae Neck: trachea midline, no thyromegaly Respiratory: normal respiratory effort, lungs clear to auscultation Cardiovascular: RRR, no murmur, no edema Chest (Breasts): Chest: normal inspection of chest Gastrointestinal (Abdomen): normal bowel sounds, soft, nontender, no hepatosplenomegaly Musculoskeletal: Extremities: extremities normal to inspection; no cyanosis and no clubbing Skin: no rashes, warm and dry Neurologic: moves all extremities and awake; no focal motor deficits and not confused Speech / Cognition: normal speech Motor/Sensory: + tremor (resting tremor in arms); no sensory deficit (Intact to light touch in legs bilaterally) Psychiatric: Orientation: alert, oriented to person, oriented to place and cooperative Hallucinations: no visual hallucinations Lymphatic: no lymphedema Results & Data Results & Data ([facility]) Vital Signs (Past 12 Hours) Vital Signs Temp Pulse Resp BP BP Pulse Ox O2 Del Method 01/06/22 08:54 137/86 01/06/22 08:40 36.8 C 89 16 145/101 H 92 Room Air 01/06/22 08:40 Room Air PG Care Time/CCT Total # of Minutes Spent Total Time Spent with Patient: Total time spent is greater than 50% in coordination of care (as documented) at patient's floor/unit and/or counseling patient: Coding Level of Care Code 53157 Subseq Hosp Care Lvl 2 Diagnoses Back pain M54.9 Toxic encephalopathy G92.9 COVID-19 U07.1 Parkinsons disease G20 Fibromyalgia M79.7
[2022-01-07] MEDS: LIDOCAINE 5% 1 PATCH TD SCH (08:32)
[2022-01-07] MEDS: ENOXAPARIN INJ 40 MG/0.4 ML SYR SQ SCH (08:34)
[2022-01-07] MEDS: DULoxetine HCL 60 MG CAP PO SCH (08:35)
[2022-01-07] MEDS: CARBIDOPA/LEVODOPA 25/100MG TAB PO SCH (08:35)
[2022-01-07] MEDS: PROPRANOLOL HCL LA 80 MG CAPCR PO SCH (08:35)
[2022-01-07] MEDS: GABAPENTIN 300 MG CAP PO SCH (08:35)
[2022-01-07] MEDS: rOPINIRole HCL 1 MG TABLET PO SCH (08:35)
[2022-01-07] MEDS: ACETAMINOPHEN 500 MG TAB PO SCH (08:35)
--- NOTE | 2022-01-07 12:13 | Discharge Summary ---
Date of Service January 07, 2022 Admission HPI Per Admitting Provider Samira Yepez is a 71yo with history of Parkinson disease, chronic low back pain with sciatica, Fibromyalgia, HLP. She was recently admitted to [facility] from 12/22/21 - 12/23/21 with worsening low back pain. During that hospital stay she had an MRI performed which revealed disc disease, bulging without stenosis as well as an acute foraminal disc herniation on the right that could be compressing the exiting L5 nerve root. Also with vacuum phenomenon at L5-S1 disc. She was discharged with Gabapentin 300mg po BID as well as Oxycodone. Patient returns to the ER today with complaint of worsening back pain, inability to ambulate at home. She typically uses a walker but has been having increasing difficulty with that over the last several days. She needed to be carried by her family members on several occasions. She reports severe pain in the right lumbar region as well as spasms. She denies radiation of the pain, numbness, tingling, weakness or change in bowel or bladder control. No fall or trauma. No fever. Patient with no additional complaints. She has had some mild cough and fatigue as well as subjective fevers for the last several days. Daughter is concerned because patient was having questionable hallucinations and was wondering if her medication may be to blame. ER Course: Toradol, Morphine 2mg, Ice, Tylenol, Dexamethasone, Diazepam Principal Diagnosis Acute on chronic lumbar pain, toxic encephalopathy, COVID positivity Discharge Exam General-alert and oriented x3, no fevers, no chills HEENT-head atraumatic and normocephalic, TMs intact bilaterally, pupils equal and reactive to light, extraocular muscles intact Neck-no lymphadenopathy or thyromegaly, trachea midline Chest-clear to auscultation percussion. No rales wheezing or rhonchi Cardiac-regular rate and rhythm, normal S1 and S2, no murmurs Abdomen-normal bowel sounds, nontender, no hepatosplenomegaly Extremities-no cyanosis, clubbing, or edema. Limited range of motion of the lumbar spine Neuro-cranial nerves II through XII intact, motor and sensory function within normal limits, strength symmetrical 5/5, no focal deficits Psych-normal affect, normal mood Discharge Data Allergies Allergy/AdvReac Type Severity Reaction Status Date / Time No Known Drug Allergies Allergy nkda Verified 01/04/22 23:09 Consultations 01/04/22 21:46 ED Decision to Admit Stat 01/04/22 22:38 Consult Orthopedic Surgery Routine Hospital Course (1) Back pain: 71yo female with history of chronic back pain with right sided lumbar radiculopathy presenting with acute worsening of pain and spasm. Patient is unable to ambulate at home secondary to pain. She does not experience weakness, numbness or tingling in the legs. Also with some confusion over the last week which was likely related to oxycodone-now resolved since oxycodone discontinued Prefers to have opinion from NS at [facility] as an outpatient for surgery and realizes she won't be able to have surgery until COVID quarantine is up. Has toxic encephalopathy from oxycodone use most likely -Have discontinued oxycodone -started tramadol prn mod-severe pain as she has tolerated this in the past and is tolerating this well here, it is controlling some of her pain -continue Tylenol 1000mg po TID -Continue discontinued Flexeril 5mg po TID -continue Gabapentin 300 mg po BID -continue Lidoderm patch -Discontinued morphine due to confusion -Orthopedic Surgery consultation appreciated-discussed with Dr. Alvarado-he is reviewed the images and agrees with her getting a second opinion from neurosurgery at [place] - PT/OT -ask CM to make referral to NS at [facility] as an outpatient Patient is requiring a hospital bed at home on discharge. She has a condition that requires positioning of the body in ways not feasible in an ordinary bed in order to alleviate pain Case management working to set up hospital bed and bedside table at home in order for discharge on Friday (2) Toxic encephalopathy: as above, secondary to oxycodone dc'd oxycodone. Now on tramadol as needed perhaps COVID causing some of the confusion but doubtful Now resolved (3) COVID-19: Patient found to be POSITIVE for Covid-19. She continues to have no symptoms. Continues to maintain adequate oxygenation on room air. -Continue isolation precautions -Monitor respiratory status no need for treatment (4) Parkinsons disease: Chronic. Stable -Continue Carbidopa/Levodopa, propranolol (5) Fibromyalgia: Chronic -Continue Cymbalta 60mg po daily Plan Dispo-Home today, January 07 with home health services Total Time Total Time Spent Total Time Spent (In Minutes): 35 minutes Discharge Plan Discharge Items Patient Disposition: Home - Home Health Services Reason For Visit: INTRACTABLE BACK PAIN Discharge Diagnosis: Acute on chronic lumbar pain, toxic encephalopathy, COVID positivity Activity: Resume your previous activity Non-emergency contact: Primary Care Provider Call non-emergency contact if: you have any medication questions Follow-up/Referrals: [facility] [Outside] (Referral was sent to [facility]. Phone - [phone]. They state once they receive referral they will review information and call you with an appointment. ) Jasmin Polanco, DO [Primary Care Provider] - Diet: Regular Addtl Attending Provider Instructions: Oxycodone has been discontinued. Use tramadol as needed for pain. Follow-up with spine surgery at [facility] as directed Pending Studies at Discharge: No Stand-Alone Forms: [facility], Smoking Cessation Medications and DC Order Prescriptions: New tramadol 50 mg tablet 50 mg PO Q6H PRN (Reason: pain) Qty: 20 0RF Continued cholecalciferol (vitamin D3) 25 mcg (1,000 unit) capsule 3,000 unit PO DAILY propranolol 160 mg capsule,extended release 24 hr 160 mg PO DAILY Qty: 90 3RF carbidopa-levodopa 25-100 mg tablet 1 tab PO TID 90 Days Qty: 270 1RF duloxetine 60 mg capsule,delayed release(DR/EC) 60 mg PO DAILY Qty: 90 3RF ropinirole 1 mg tablet 1 mg PO TID Qty: 90 5RF acetaminophen 500 mg tablet 1,000 mg PO TID PRN (Reason: Pain) Qty: 90 cyclobenzaprine 5 mg tablet 5 mg PO TID PRN (Reason: muscle spasm) Qty: 20 0RF gabapentin 300 mg Capsule 300 mg PO BID Qty: 60 0RF Discontinued oxycodone 5 mg tablet 5 - 10 mg PO Q6H PRN (Reason: moderate-severe pain) Qty: 20 0RF Discharge Orders: Discharge Order (Routine); Ordered 01/07/22 Ordered By: Perfecto Pan Admission Data Admit Date/Time: 01/04/22 22:38 Attending Provider: Perfecto Pan Admit Provider: Sherry Dunne Primary Care Provider: Jasmin Polanco Other Providers: Moisés Alvarado ; Sherry Dunne ; Jean Mckee [facility] Coding Level of Care Code D/C DAY MANAGEMENT >30 MINS Diagnoses Back pain M54.9 Toxic encephalopathy G92.9 COVID-19 U07.1 Parkinsons disease G20 Fibromyalgia M79.7
== END 2022-01-07 13:29 | disposition home health service (06) | DRG 551 ==
LOC: ED 19:46 → SUATTDRO 22:38 → EDINP 22:38 → 1E 01-05 01:00 → 3E 01-05 18:04

== ENCOUNTER 2023-07-15 14:19 | Inpatient (IN) ==
--- NOTE | 2023-07-15 14:33 | ED Triage Note ---
Date of Service July 15, 2023 Provider in Triage Author: Kiley Garcia History of Present Illness This patient was briefly evaluated while in triage. An abbreviated physical exam was performed. This patient is a 72-year-old Female who presents to the ED for evaluation of intermittent chest pain x 2 days. Reports substernal CP that radiates to back and into left arm. No exacerbating symptoms. Notes associated SOB, nausea/vomiting. Denies cardiac history. Notes 9/[address], not currently experience CP in triage. Physical Exam Constitutional: alert and oriented x3. no acute distress. HEENT: normocephalic, atraumatic. normal conjunctiva.PERRLA. EOM's grossly intact. Respiratory: lungs are clear to auscultation without wheezes, rhonchi, or rales bilaterally. equal chest rise. normal respiratory effort, no accessory muscle use. Cardiovascular: normal heart sounds without murmur. regular rate and rhythm. MSK: moves all 4 extremities spontaneously Psych:appropriate mood and affect. Initial orders for labs and / or imaging were placed and patient was placed in the waiting area until a bed is available. Please see further documentation for the full ED course.
[2023-07-15] MEDS: ASPIRIN CHEW 324 MG PO STA (14:37)
--- NOTE | 2023-07-15 15:13 | XRay Report ---
XR chest 1V not portable CLINICAL HISTORY: Chest pain, nonspecific TECHNIQUE: Single frontal radiograph of the chest was obtained. Comparison: None available at the time of this dictation. FINDINGS: No lines and tubes are seen. The cardiomediastinal silhouette is normal. The lungs are clear. No evid ence of pleural effusion or pneumothorax. IMPRESSION: No acute chest disease. ACT 112: Negative or not required by law. Electronically signed by: Antolin Casiano M.D. 07/15/2023 3:12 PM
[2023-07-15 15:27] LABS: ALC (manual) 3.42 K/uL (1.2-3.4); ANC (manual) 3.13 K/uL (1.4-6.5); Eosinophils # (manual) 0.36 K/uL (0-0.50); Eosinophils % (manual) 5 %; Hematocrit (blood only) 46.7 % (37.0-47.0); Hemoglobin 15.2 g/dl (12.0-16.0); Lymphocytes # (manual) 3.42 K/uL (1.2-3.4); Lymphocytes % (manual) 47 %; Mean Corpuscular Hgb Conc 32.5 g/dL (32.0-36.0); Mean Corpuscular Volume 89.1 fL (80.0-100.0); Mean Platelet Volume 11.7 fL (9.4-12.4); Monocytes # (manual) 0.36 K/uL (0.11-0.59); Monocytes % (manual) 5 %; Neutrophils # (manual) 3.13 K/uL (1.40-6.50); Neutrophils % (manual) 43 %; Platelet Count 235 K/uL (130-400); RDW Coefficient of Variation 12.4 % (11.5-14.5); RDW Standard Deviation 40.5 fL (36.4-46.3); Red Blood Count 5.24 M/uL (4.20-5.40); White Blood Count 7.28 K/ul (4.8-10.8)
[2023-07-15 15:33] LABS: Alanine Aminotransferase 5 U/L (7-52); BUN Creatinine Ratio 27.4 (10-20); Bilirubin,Total 0.6 mg/dl (0.2-1.0); Blood Urea Nitrogen 20 mg/dl (6-23); Carbon Dioxide 29 mmol/L (21-32); Chloride 103 mmol/L (98-107); Creatinine Clr Calc Pharmacy 79.6 ml/min; Est GFR (African American) 95.4 ml/min; Est GFR (Non-African American) 82.3 ml/min; Glucose 90 mg/dl (70-99(Fasting)); Lipase 18 U/L (11-82); Total Protein 7.5 gm/dl (6.0-8.3)
--- NOTE | 2023-07-15 16:02 | Emergency Department Note ---
ED Provider Note History of Present Illness Chief Complaint: Chest Pain Stated Complaint: CHEST PAINS, ARM PAIN, JAW PAIN Time Seen by Provider: 07/15/23 15:43 this is a 72-year-old female with a history of Parkinson's disease, accompanied by her partner, who presents to the emergency department with chest pressure that began yesterday and again today. She states that she was not doing much of anything when she developed central chest pressure that radiated into her jaw and her left arm yesterday. This lasted about 1 hour and then subsided. She did feel more short of breath than her baseline during the chest pain. Today she had an episode of nausea and vomiting. Soon after that she developed the chest pressure again. This radiated toward her back and down her left arm. She decided to come to the emergency department on the way here stated that she was feeling better. She currently does not have any chest pain or shortness of breath. Does not feel nauseous now. Denies any leg swelling or leg pain. Does not feel diaphoretic. She denies any cardiac history. No history of PE. No history of hypertension, hyperlipidemia, diabetes, or smoking history. Home Medications Medication Instructions Recorded Confirmed Type acetaminophen 500 mg tablet 1,000 mg PO TID PRN Pain #90 tabs 11/20/18 07/15/23 History duloxetine 60 mg capsule,delayed 60 mg PO DAILY #90 caps 10/31/22 07/15/23 Rx release meloxicam 15 mg tablet 15 mg PO DAILY #90 tabs 02/11/23 07/15/23 Rx carbidopa 25 mg-levodopa 100 mg 1.5 tab PO TID 90 days #405 tabs 06/30/23 07/15/23 Rx tablet propranolol 160 mg capsule,24 160 mg PO DAILY #90 caps 06/30/23 07/15/23 Rx hr,extended release ropinirole 1 mg tablet 1 mg PO TID 90 days #270 tabs 06/30/23 07/15/23 Rx Allergies Allergy/AdvReac Type Severity Reaction Status Date / Time gabapentin AdvReac Severe HALLUCINATI Verified 07/15/23 16:46 ONS oxycodone AdvReac Severe HALLUCINATI Verified 07/15/23 16:46 ONS/DIZZINE SS Past Med/Surg History Medical History Lumbar disc disease COVID-19 (12/2021) Vitamin D deficiency Parkinsonism Migraine without aura and without status migrainosus, not intractable Benign familial tremor Fibromyalgia Hyperlipidemia, unspecified Osteoporosis, unspecified Surgical History History of cataract surgery (2020) Both eyes S/P tooth extraction S/P tonsillectomy and adenoidectomy Family History Father Myocardial infarction Coronary heart disease Tremor Stroke Mother , age 79 Pancreatic cancer Brother Tremor Melanoma Grandmother (Maternal) Crohn's colitis Daughter Crohn's colitis Denies family history of Ovarian cancer Prostate cancer Diabetes Breast cancer Lung cancer Colorectal cancer Social History Smoking Status: Never smoker Second Hand Exposure: No; Do You Dip or Chew Tobacco: No; Hx Alcohol Use: No Hx Substance Use: No Preferred Language: Venezuelan Communication Ability: Effective Visual Impairment: No Limitations Hearing Ability: Normal Boiler Coverer Required: No Beliefs That Will Affect Care: None marital status: Single Current Living Situation: Significant Other 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 Feels Safe at Home: Yes Childhood Exposure to Second-Hand Smoke: No Diet: regular Diet Comment: regular caffeine: No during the past year weight has: remained stable Dental Care, Regularly: Yes Physical Activity Frequency: Daily Physical Activity Frequency Comment: Walking Seatbelt Use: always Sunscreen Use: Yes Assistive Devices: None Physical Exam Vital Signs Vital Signs - 24 hr 07/15/23 14:32 07/15/23 15:59 07/15/23 15:59 Temperature 98.2 F Temperature Source Temporal Artery Scan Pulse Rate 71 0 L Pulse Rate from SpO2 Sensor 67 Respiratory Rate 18 19 Respiratory Effort / Characteristics Non-Labored Spontaneous Respiratory Depth Normal Blood Pressure 140/100 133/90 Blood Pressure Mean 113 98 Blood Pressure Position Sitting Pulse Oximetry 93 96 Oxygen Delivery Method Room Air Sepsis Recent Fever Within 48 Hours No Sepsis New/Unexplained Change in Mental Status No Sepsis Action Taken by Nursing No Action Required 07/15/23 16:00 07/15/23 16:30 07/15/23 16:45 Temperature Temperature Source Pulse Rate 0 L 72 56 L Pulse Rate from SpO2 Sensor 66 73 Respiratory Rate 22 20 Respiratory Effort / Characteristics Respiratory Depth Blood Pressure Blood Pressure Mean Blood Pressure Position Pulse Oximetry 95 95 Oxygen Delivery Method Sepsis Recent Fever Within 48 Hours Sepsis New/Unexplained Change in Mental Status Sepsis Action Taken by Nursing CONSTITUTIONAL: Well developed, well nourished, in no acute distress. EYES: conjunctivae normal, extraocular muscles intact. ENMT: External ears normal. Nose with normal external appearance, no congestion NECK: Full active range of motion. RESPIRATORY: Breathing unlabored and symmetric. Lungs clear to auscultation bilaterally. No wheeze, rales, or rhonchi. CARDIOVASCULAR: Regular rate and rhythm. No murmurs, rubs, or gallops. Radial pulses 2+ bilaterally ABDOMEN: Normal bowel sounds. Soft, nontender, no peritonitis. No masses. MUSCULOSKELETAL: Moves all extremities at all joints without pain or difficulty. Eczematous rash present on bilateral anterior lower legs, baseline per patient. No edema in bilateral lower extremities. SKIN: [place], warm, dry. NEUROLOGIC: Awake, alert, oriented. Baseline upper extremity tremor. Gaze is conjugate. Face symmetric, speech normal. Moves head and all four extremities spontaneously. Gait is intact, slight shuffling PSYCHIATRIC: Appropriate. Normal affect Course Administered Medications Aspirin (Aspirin 81 Mg Ectab) 81 mg PO DAILY [facility] Stop: 08/15/23 08:59 Last Admin: 07/16/23 08:19 Dose: 81 mg Documented By: GODWIN Carbidopa/Levodopa (Carbidopa/Levodopa 25/100mg Tab) 1.5 tab PO TID [facility] Stop: 08/14/23 20:59 Last Admin: 07/16/23 17:56 Dose: 1.5 tab Documented By: Admin: 07/16/23 08:20 Dose: 1.5 tab Documented By: Admin: 07/15/23 21:49 Dose: 1.5 tab Documented By: KEVON Duloxetine HCl (Duloxetine Hcl 60 Mg Cap) 60 mg PO DAILY [facility] Stop: 08/15/23 08:59 Last Admin: 07/16/23 08:21 Dose: 60 mg Documented By: GODWIN Ondansetron HCl (Ondansetron Inj 2 Mg/Ml 2 Ml Vial) 4 mg IV Q6H PRN PRN Reason: Nausea And Vomiting Stop: 08/14/23 17:27 Last Admin: 07/16/23 10:51 Dose: 4 mg Documented By: GODWIN Propranolol HCl (Propranolol Hcl La 80 Mg Capcr) 160 mg PO DAILY [facility] Stop: 08/15/23 08:59 Last Admin: 07/16/23 08:21 Dose: 160 mg Documented By: GODWIN Ropinirole HCl (Ropinirole Hcl 1 Mg Tablet) 1 mg PO TID [facility] Stop: 08/14/23 20:59 Last Admin: 07/16/23 17:56 Dose: 1 mg Documented By: Admin: 07/16/23 08:21 Dose: 1 mg Documented By: Admin: 07/15/23 21:47 Dose: 1 mg Documented By: KEVON Ticagrelor (Ticagrelor 90 Mg Tab) 90 mg PO BID [facility] Stop: 08/15/23 20:59 Last Admin: 07/16/23 20:12 Dose: 90 mg Documented By: RADHA Discontinued Medications Aspirin (Aspirin Chew 324 Mg) 324 mg PO NOW STA Stop: 07/15/23 14:34 Last Admin: 07/15/23 14:37 Dose: 324 mg Documented By: MENG Carbidopa/Levodopa (Carbidopa/Levodopa 25/100mg Tab) 1.5 tab PO NOW STA Stop: 07/15/23 17:21 Last Admin: 07/15/23 18:08 Dose: 1.5 tab Documented By: KEVON Fentanyl Citrate (Fentanyl Citrate Pf 100 Mcg/2 Ml Vial) Confirm Administered Dose 100 mcg .ROUTE .STK-MED ONE Stop: 07/16/23 13:38 Last Admin: 07/16/23 14:37 Dose: 50 mcg Documented By: FERNANDA Heparin Sodium (Porcine) (Heparin Sod (Porcine) 1000 Unit/Ml) 1 units IV NOW ONE Stop: 07/15/23 16:56 Last Admin: 07/15/23 17:23 Dose: 4,000 units Documented By: KEVON Co-signed By: GODWIN Heparin Sodium (Porcine) (Heparin (Porcine) 1000 Unit/Ml 10 Ml (Patient Accounting Representative Use Only)) Confirm Administered Dose 10,000 units .ROUTE .STK-MED ONE Stop: 07/16/23 13:38 Last Admin: 07/16/23 14:37 Dose: 7,000 units Documented By: FERNANDA Heparin Sodium/Dextrose (Heparin Iv Adult Wt-Based Low-Dose W/ Initial Bolus Protocol) 1 each IV NOW STA; Protocol Stop: 07/15/23 16:39 Last Admin: 07/15/23 17:31 Dose: Not Given Documented By: KEVON Heparin Sodium/Dextrose (Heparin Iv Adult Wt-Based Low-Dose W/ Initial Bolus Protocol) 1 each IV Q15M [facility]; Protocol Stop: 07/15/23 17:46 Last Admin: 07/15/23 17:32 Dose: Not Given Documented By: Admin: 07/15/23 17:32 Dose: Not Given Documented By: KEVON Heparin Sodium/Sodium Chloride (Heparin In Nss Infusion 1000 Unit/500 Ml (2 U/Ml) Bag) Confirm Administered Dose 3,000 units IV .STK-MED ONE Stop: 07/16/23 13:38 Last Admin: 07/16/23 13:55 Dose: 3,000 units Documented By: MARCOS Heparin Sodium/Dextrose (Heparin Sodium/Dextrose) 25,000 units in 500 mls @ 17 mls/hr IV .Q24H [facility]; Protocol Stop: 08/14/23 16:59 Last Titration: 07/16/23 15:50 Dose: Infused Documented By: CRYSTAL Co-signed By: CRISTO Titration: 07/16/23 08:03 Dose: 850 units/hr, 17 mls/hr Documented By: GODWIN Co-signed By: NATALIO Titration: 07/15/23 23:30 Dose: 850 units/hr, 17 mls/hr Documented By: NITISH Co-signed By: AYAAN Admin: 07/15/23 17:24 Dose: 850 units/hr, 17 mls/hr Documented By: KEVON Co-signed By: GODWIN Famotidine (Pepcid 20mg Iv Push) 20 mg in 5 mls @ 2.5 mls/min IV NOW STA Stop: 07/15/23 16:55 Last Admin: 07/15/23 17:22 Dose: 2.5 mls/min Documented By: KEVON Ioversol (Optiray 320 125ml) 113 ml IV ONCE ONE Stop: 07/15/23 19:10 Last Admin: 07/15/23 19:10 Dose: 113 ml Documented By: FERNANDA(2) Ioversol (Optiray 350) Confirm Administered Dose 1 ml .ROUTE .STK-MED ONE Stop: 07/16/23 13:38 Last Admin: 07/16/23 14:35 Dose: 160 ml Documented By: MARCOS Midazolam HCl (Midazolam Hcl 1 Mg/Ml 2ml Vial) Confirm Administered Dose 2 mg .ROUTE .STK-MED ONE Stop: 07/16/23 13:38 Last Admin: 07/16/23 13:55 Dose: 2 mg Documented By: FERNANDA Nicardipine HCl (Nicardipine Hcl Inj 2.5 Mg/Ml 10 Ml Amp) Confirm Administered Dose 25 mg .ROUTE .STK-MED ONE Stop: 07/16/23 13:38 Last Admin: 07/16/23 13:55 Dose: 25 mg Documented By: MARCOS Nitroglycerin/Dextrose (Nitroglycerin/D5w 100mcg/Ml 20ml Syr) Confirm Administered Dose 2,000 mcg .ROUTE .STK-MED ONE Stop: 07/16/23 13:38 Last Admin: 07/16/23 13:55 Dose: 2,000 mcg Documented By: MARCOS Pantoprazole Sodium (Pantoprazole 40 Mg Tab) 40 mg PO NOW STA Stop: 07/15/23 16:55 Last Admin: 07/15/23 17:22 Dose: 40 mg Documented By: KEVON Ticagrelor (Ticagrelor 90 Mg Tab) Confirm Administered Dose 180 mg .ROUTE .STK- MED ONE Stop: 07/16/23 14:37 Last Admin: 07/16/23 14:37 Dose: 180 mg Documented By: FERNANDA Medical Decision Making Differential Diagnosis Myocardial infarction, angina, ischemia, pulmonary embolism, effusion, pneumothorax, esophageal rupture, aortic dissection, pneumonia, among other pathology Laboratory Data 07/16/23 06:24 07/16/23 06:24 Lab Results 07/15/23 07/15/23 Range/Units 14:42 16:04 WBC 7.28 (4.8-10.8) K/ul RBC 5.24 (4.20-5.40) M/uL Hgb 15.2 (12.0-16.0) g/dl Hct 46.7 (37.0-47.0) % MCV 89.1 (80.0-100.0) fL MCH 29.0 (25.0-34.0) pg MCHC 32.5 (32.0-36.0) g/dL RDW Std Deviation 40.5 (36.4-46.3) fL RDW Coeff of Karla 12.4 (11.5-14.5) % Plt Count 235 (130-400) K/uL MPV 11.7 (9.4-12.4) fL Neutrophils % (Manual) 43 % Lymphocytes % (Manual) 47 % Monocytes % (Manual) 5 % Eosinophils % (Manual) 5 % Neutrophils # (Manual) 3.13 (1.40-6.50) K/uL Total Absolute Neuts 3.13 (1.4-6.5) K/uL Lymphocytes # (Manual) 3.42 H (1.2-3.4) K/uL Total Abs Lymphocytes 3.42 H (1.2-3.4) K/uL Monocytes # (Manual) 0.36 (0.11-0.59) K/uL Eosinophils # (Manual) 0.36 (0-0.50) K/uL PT Cancelled 11.9 INR Cancelled 1.1 APTT Cancelled 28 PTT Ratio Cancelled 1.0 D-Dimer 720 H* (0-500) ug/L FEU Sodium TNP 138 Potassium TNP 4.2 Chloride 103 (98-107) mmol/L Carbon Dioxide 29 (21-32) mmol/L Anion Gap TNP BUN 20 (6-23) mg/dl Creatinine 0.73 (0.6-1.2) mg/dl Est Cr Clr Drug Dosing 79.6 ml/min Est GFR ( Amer) 95.4 ml/min Est GFR (Non-Af Amer) 82.3 ml/min BUN/Creatinine Ratio 27.4 H (10-20) Glucose 90 (70-99(Fasting)) mg/dl Calcium 9.0 (8.6-10.3) mg/dl Magnesium TNP 1.8 Total Bilirubin 0.6 (0.2-1.0) mg/dl AST TNP 16 ALT 5 L (7-52) U/L Alkaline Phosphatase TNP 84 Troponin I High Sens 259.0 H* 311.2 H* D (0-14) pg/ml Total Protein 7.5 (6.0-8.3) gm/dl Albumin TNP 4.1 Globulin TNP Albumin/Globulin Ratio TNP Lipase 18 (11-82) U/L Imaging Data Attestation: I personally reviewed and interpreted this imaging study as follows: ( I agree with the radiologist's interpretation) Radiologist's Impression: Chest X-Ray 07/15/23 14:33 XR chest 1V not portable CLINICAL HISTORY: Chest pain, nonspecific TECHNIQUE: Single frontal radiograph of the chest was obtained. Comparison: None available at the time of this dictation. FINDINGS: No lines and tubes are seen. The cardiomediastinal silhouette is normal. The lungs are clear. No evidence of pleural effusion or pneumothorax. IMPRESSION: No acute chest disease. ACT 112: Negative or not required by law. Electronically signed by: Antolin Casiano M.D. 07/15/2023 3:12 PM ECG Data Additional Comments: EKG #1: 1439sinus rhythm with a rate of 68. Intervals within normal limits. Normal axis. Slight ST depression in the lateral leads. ST abnormality aVR. Compared to ECG from 11/03/2019, ST depressions are new. EKG #2: 1601sinus rhythm with a rate of 70. Intervals within normal limits. Normal axis. ST depressions more prominent in the lateral leads. Occasional PVC MDM Narrative 72-year-old female with a history above presents to the emergency department with chest pressure radiating to the back, jaw, and arm that lasted about 1 hour yesterday, had another episode today. Also had 1 episode of vomiting today. Patient currently asymptomatic. She was initially evaluated in triage and initial labs resulted while she was in the waiting room. Troponin elevated at 259. Patient was quickly brought back to a room at my request. Aspirin administered. She was placed on the material controller and at time of evaluation demonstrates a sinus rhythm in the 70s. Her EKG demonstrates ST depressions in lateral and inferior leads. Repeat EKG demonstrates PVCs with worsening ST depressions in lateral leads. Aside from initial troponin elevation, remainder of blood work demonstrates no leukocytosis or anemia. No significant electrolyte disturbances. Normal renal function. COVID influenza RSV negative. No transaminitis. Lipase normal. Chest x-ray 1 view is negative for acute process Case quickly reviewed with ED attending Dr. Salmon. Low-dose heparin bolus with heparin drip was ordered for suspected NSTEMI. Admission was recommended to the patient. She was agreeable with this plan. Case discussed with Dr. Elias who agrees to admit the patient for further management Attending Attestation: I Hemal Salmon MD I have reviewed the advanced practitioner's documentation and agree with the plan of care. I accept the responsibility for the associated risk of managing the patient. She is resting comfortably in bed. Troponin elevated. Will be anticoagulated. Will come in to hospital for further cardiac evaluation. No STEMI. ,Waxing and waning symptoms seem more cardiac than dissection/PE. Critical Care I have personally spent 33 minutes of critical care time in the direct management of this patient. This includes bedside care, interpretation of diagnostic studies, and testing, discussion with consultants, patient, and other required patient management activities. These 33 minutes is in excess of all separately billable procedures. Impression Non-ST elevation MT (NSTEMI) Critical Care Time Critical Care Time: Yes Total Critical Care Time: 33 Discharge Plan Visit Data Chief Complaint: Chest Pain Stated Complaint: CHEST PAINS, ARM PAIN, JAW PAIN ED Provider: Hemal Salmon ED Midlevel Provider: Edgar Knox Discharge Problem: Non-ST elevation MT (NSTEMI) Patient Disposition: Admitted As Inpatient Condition: Fair Discharge Instructions Interventions: ED Discharge Assessment Last Done: 07/15/23 19:59
[2023-07-15 16:37] LABS: Albumin Level 4.1 gm/dl (3.4-5.0); Potassium 4.2 mmol/L (3.5-5.1)
[2023-07-15 16:49] LABS: INR 1.1 (0.9-1.1); Partial Thromboplastin Time 28 Seconds (21-31); Prothrombin Time 11.9 Seconds (9.0-12.0)
[2023-07-15 16:50] LABS: Troponin I High Sensitivity 311.2 pg/ml (0-14)
--- NOTE | 2023-07-15 16:51 | History & Physical Report ---
Date of Service July 15, 2023 Assessment & Plan (1) Non-ST elevation [place] (NSTEMI): Plan: -Admit to the PCU on tele and pulse oximetry -Presented to the ED after experiencing multiple episodes of substernal chest pain/pressure with radiation to the back, left neck/jaw, and left arm -Symptoms also associated with SOB, currently experiencing mild SOB without other associated symptoms -Initial high sen trop elevated at 259-->311 on 2 hour repeat -Two ECG's obtained in the ED are showing NSR with ST segment depressions in the inferior and anterior leads, but are without ST segment elevation -Patient denies a previous cardiac hx, however, she has a previous hx of hyperlipidemia but is not on a lipid lowering agent -Received 324 mg Aspirin in the ED -Low-dose, weight-based heparin drip, with bolus will be started shortly, continue overnight -Will trend high sen trop q6h moving forward -Cardiology consult placed -Patient is already on 160 mg daily propranolol for her tremors, will continue this for now -Will continue with 81 mg PO daily tomorrow -Will obtain TTE tomorrow -NPO except meds at midnight in case of heart cath tomorrow -Heparin drip for DVT PPX -HH diet until midnight then NPO except meds -AM CBC, BMP, mag, PT/INR, A1c, fasting lipid panel (2) SOB (shortness of breath): Plan: -Patient has experienced SOB with both episodes of chest pain -However, she continues to have mild SOB at rest despite being chest pain free -No recent cough, has been stable on RA with clear CXR today -Could be due to her current NSTEMI, but cannot rule out PE at this time -At this time we will obtain D-dimer, if positive, will obtain CTA of the chest w/PE protocol -Will obtain Covid/RSV/Influenza screeen due to symptoms -Continue to monitor on tele and pulse oximetry (3) Chest pain: Plan: -See NSTEMI (4) Parkinsons disease: Plan: -Continue Carbidopa/levodopa and Propranolol -Will give afternoon dose of Carbidopa/levodopa now Plan The patient was discussed with Dr. Elias at the time of the admission History of Present Illness Chief Complaint: chest pain Primary Care Provider: DO Samira Rose is a 71yo with history of Parkinson disease, chronic low back pain with sciatica, Fibromyalgia, and HLP who presented to the [facility] ED on 07/15/23 with complaints of chest pain yesterday and today. She remained stable in the ED. Labs were significant for an initial high sen trop of 259--> 311 on 2 hour repeat. Chest xray was negative for acute findings. ECG shows NSR with new ST segment depressions in the inferior and anterior leads but was without ST segment elevation. The patient's pain resolved shortly after ED arrival. She was given 324 mg Aspirin on arrival and was ordered a low dose, weight based heparin drip w/bolus prior to admission. At the time of the exam the patient was sitting in bed in no acute distress with her and daughter bedside. The patient states that she was in her normal state of health when she developed sudden onset of substernal chest pain/pressure with radiation to the back, left neck/jaw, and left arm. She was sitting when the symptoms began, they lasted for approximately 30 min. She did not take any medications to alleviate the symptoms. She had another episode with the same symptoms and radiation, shortly after waking this am, while at rest. She states that the symptoms lasted for approximately 45 minutes before they began to subside after ED arrival. She denies a previous hx of cardiac disease or CHF. She is currently chest pain free at the time of my exam but does still have mild SOB at rest. She denies previous tobacco use, recent alcohol use. No recent fever, chills, cough, abd pain, vomiting, dysuria hematuria, melena, diarrhea, LE swelling, and recent trauma. She has had some nausea with her episodes of chest pain but this is currently resolved. She is a full code and would want her daughter to make medical decisions for her if she cannot make them herself. Please refer to Dr. Elias's attestation for any changes to the treatment plan Allergies Allergy/AdvReac Type Severity Reaction Status Date / Time gabapentin AdvReac Severe HALLUCINATI Verified 07/15/23 16:46 ONS oxycodone AdvReac Severe HALLUCINATI Verified 07/15/23 16:46 ONS/DIZZINE SS Home Medications Medication Instructions Recorded Confirmed Type acetaminophen 500 mg tablet 1,000 mg PO TID PRN Pain #90 tabs 11/20/18 07/15/23 History duloxetine 60 mg capsule,delayed 60 mg PO DAILY #90 caps 10/31/22 07/15/23 Rx release meloxicam 15 mg tablet 15 mg PO DAILY #90 tabs 02/11/23 07/15/23 Rx carbidopa 25 mg-levodopa 100 mg 1.5 tab PO TID 90 days #405 tabs 06/30/23 07/15/23 Rx tablet propranolol 160 mg capsule,24 160 mg PO DAILY #90 caps 06/30/23 07/15/23 Rx hr,extended release ropinirole 1 mg tablet 1 mg PO TID 90 days #270 tabs 06/30/23 07/15/23 Rx Past Med/Surg History Medical History Lumbar disc disease COVID-19 (12/2021) Vitamin D deficiency Parkinsonism Migraine without aura and without status migrainosus, not intractable Benign familial tremor Fibromyalgia Hyperlipidemia, unspecified Osteoporosis, unspecified Surgical History History of cataract surgery (2020) Both eyes S/P tooth extraction S/P tonsillectomy and adenoidectomy Family History Father Myocardial infarction Coronary heart disease Tremor Stroke Mother , age 79 Pancreatic cancer Brother Tremor Melanoma Grandmother (Maternal) Crohn's colitis Daughter Crohn's colitis Denies family history of Ovarian cancer Prostate cancer Diabetes Breast cancer Lung cancer Colorectal cancer Social History Smoking Status: Never smoker Second Hand Exposure: No; Do You Dip or Chew Tobacco: No; Hx Alcohol Use: No Hx Substance Use: No Preferred Language: Danish Communication Ability: Unable Visual Impairment: No Limitations Hearing Ability: Normal Experimental Mechanic Required: No Beliefs That Will Affect Care: None marital status: Single Current Living Situation: Family current occupational status: retired other: [employer] Feels Safe at Home: Yes Childhood Exposure to Second-Hand Smoke: No Diet: regular Diet Comment: regular caffeine: No during the past year weight has: remained stable Dental Care, Regularly: Yes Physical Activity Frequency: Daily Physical Activity Frequency Comment: Walking Seatbelt Use: always Sunscreen Use: Yes Assistive Devices: Wheelchair Physical Exam Physical Exam: Physical Exam: General: In no acute distress, stated age, well-nourished, good hygiene HEENT: Normocephalic, atraumatic, no scleral icterus, pupils around round, symmetrical, and reactive to light, moist mucus membranes, trachea midline, no thyromegaly Chest/Pulm: Negative for reproducible pain on palpation of the chest, No respiratory distress, symmetrical chest expansion, clear breath sounds throughout Cardiac: RRR, no murmurs noted Abdomen: Negative for ascites and bruising, normoactive bowel sounds, soft, non-tender to palpation throughout Musculoskeletal: Symmetrical and without signs of acute trauma, upper and lower extremities with full ROM, no atrophy, or flaccidity Extremities: Radial, dorsalis pedis, and posterior tibial pulses are intact and symmetrical, no edema noted in the BL LE's Skin: Warm, dry, no rashes , lesions, or scars noted Neuro: Alert and oriented to person, place, month, year, and president, no focal defects, baseline resting tremor noted Psych: No acute distress, calm and cooperative during the exam Results & Data Results & Data Vital Signs (Past 12 Hours) Vital Signs Temp Pulse Resp BP Pulse Ox O2 Del Method 07/15/23 16:45 56 L 07/15/23 14:32 36.8 C 71 18 140/100 93 Room Air Laboratory Results Abnormal lab results 07/15/23 07/15/23 Range/Units 14:42 16:04 Lymphocytes # (Manual) 3.42 H (1.2-3.4) K/uL Total Abs Lymphocytes 3.42 H (1.2-3.4) K/uL BUN/Creatinine Ratio 27.4 H (10-20) ALT 5 L (7-52) U/L Troponin I High Sens 259.0 H* 311.2 H* D (0-14) pg/ml Diagnostic Findings Chest X-Ray 07/15/23 14:33 XR chest 1V not portable CLINICAL HISTORY: Chest pain, nonspecific TECHNIQUE: Single frontal radiograph of the chest was obtained. Comparison: None available at the time of this dictation. FINDINGS: No lines and tubes are seen. The cardiomediastinal silhouette is normal. The lungs are clear. No evidence of pleural effusion or pneumothorax. IMPRESSION: No acute chest disease. ACT 112: Negative or not required by law. Electronically signed by: Antolin Casiano M.D. 07/15/2023 3:12 PM ECG Additional Comments: Sinus rhythm with occasional Premature ventricular complexes ST & T wave abnormality, consider anterior ischemia Abnormal ECG When compared with ECG of 15-JUL-2023 14:39, (unconfirmed) Premature ventricular complexes are now Presen Code Status & VTE Plan Code Status Full code VTE Prophylaxis Plan VTE Prophylaxis will be ordered: Yes Supervising Physician Co-Signing Physician Notes Patient seen and examined, chart reviewed, case discussed with Jw Natarajan PA-C and I agree with the assessment and plan as above except as otherwise noted Labs and images reviewed Samira is seen at the bedside. She is a 71-year-old with a history of Parkinson's and tremor, low back pain, fibromyalgia who presents to the ER with chest pain and shortness of breath. Chest pain has greatly improved since being in the ER however she does continue to have some mild shortness of breath at rest. She has received aspirin in the ER. EKG shows ST depressions without ST elevations. Case was reviewed with cardiology and patient was heparinized. D- dimer was equivocal and near the age-related cutoff, CTA is pending. Troponin 259 uptrending to 311, and trended every 6 hours. Echo is pending. No leg swelling, no orthopnea. At bedside assessment lungs are clear and heart rate is regular, no lower extremity edema. Agree with recommendations above, if CTA no dalia PE will increase from low-dose to full dose heparin nomogram. PG Care Time/CCT Total # of Minutes Spent Total Time Spent with Patient: Total time spent is greater than 50% in coordination of care (as documented) at patient's floor/unit and/or counseling patient: Coding [place] [address] INT INP/OBS CARE 3/75MIN Patient Type Established Medical Decision Making High Complexity Diagnoses Non-ST elevation IL (NSTEMI) I21.4 SOB (shortness of breath) R06.02 Chest pain R07.9 Parkinsons disease G20
[2023-07-15] MEDS: FAMOTIDINE 20MG IV PUSH 20 MG/5 ML SYR IV STA (17:22)
[2023-07-15] MEDS: PANTOprazole 40 MG TAB PO STA (17:22)
[2023-07-15] MEDS: HEPARIN SOD (PORCINE) 1000 UNIT/ML IV ONE (17:23)
[2023-07-15] MEDS: HEPARIN SODIUM/DEXTROSE 25,000 UNITS/500 ML BAG IV SCH (17:24)
[2023-07-15] MEDS: Heparin IV Adult Wt-Based Low-Dose w/ INITIAL Bolus Protocol IV STA (17:31)
[2023-07-15] MEDS: Heparin IV Adult Wt-Based Low-Dose w/ INITIAL Bolus Protocol IV SCH (17:32)
--- NOTE | 2023-07-15 17:52 | Electrocardiogram Report ---
Test Reason : Blood Pressure : / mmHG Vent. Rate : 068 BPM Atrial Rate : 068 BPM P-R Int : 198 ms QRS Dur : 084 ms QT Int : 374 ms P-R-T Axes : 054 022 032 degrees QTc Int : 397 ms Normal sinus rhythm Diffuse Nonspecific ST and T wave abnormality Abnormal ECG When compared with ECG of 03-NOV-2019 08:20, No significant change was found Confirmed by Tanvir Lin ([id number]) on 07/15/2023 5:52:26 PM Referred By: Confirmed By:Tanvir Lin
--- NOTE | 2023-07-15 17:57 | Electrocardiogram Report ---
Test Reason : Blood Pressure : / mmHG Vent. Rate : 070 BPM Atrial Rate : 070 BPM P-R Int : 188 ms QRS Dur : 082 ms QT Int : 374 ms P-R-T Axes : 068 024 055 degrees QTc Int : 403 ms Sinus rhythm with occasional Premature ventricular complexes Abnormal ECG When compared with ECG of 15-JUL-2023 14:39, Premature ventricular complexes are now Present Confirmed by Tanvir Lin ([id number]) on 07/15/2023 5:57:10 PM Referred By: Confirmed By:Tanvir Lin
[2023-07-15] MEDS: CARBIDOPA/LEVODOPA 25/100MG TAB PO STA (18:08)
[2023-07-15 18:13] LABS: D Dimer 720 ug/L FEU (0-500)
[2023-07-15] MEDS: OPTIRAY 320 125ml IV ONE (19:10)
[2023-07-15 19:13] LABS: Magnesium 1.8 mg/dl (1.7-2.4)
--- NOTE | 2023-07-15 21:03 | CT Scan Report ---
Exam(s): CTA CHEST IV Amt: 113 cc opti 320 EXAM: CT Angiography Chest With Intravenous Contrast CLINICAL HISTORY: Reason for exam: PE. TECHNIQUE: Axial computed tomographic angiography images of the chest with intravenous contrast. CTDI is 31.85 mGy and DLP is 0 mGy-cm. Automated exposure control was utilized for the study. A dose lowering technique was utilized adhering to the principles of ALARA. MIP reconstructed images were created and reviewed. COMPARISON: No relevant prior studies available. FINDINGS: LUNGS: No focal consolidation, pleural effusion, or pneumothorax. Atelectasis at the lung bases. HEART: Cardiomegaly. VASCULATURE: No acute pulmonary embolism. Atherosclerotic changes of the aorta. THYROID: Within normal limits. MEDIASTINUM + LYMPH NODES: There are no pathologically enlarged mediastinal, hilar, or axillary lymph nodes. SUPERIOR ABDOMEN: Hepatic steatosis. MUSCULOSKELETAL: Degenerative changes. IMPRESSION: No acute pulmonary embolism. Electronically signed by: Dontae De Oliveira MD 07/15/23 21:02 PM
[2023-07-15 21:05] LABS: Influenza A virus by PCR Negative (Neg); Influenza B virus by PCR Negative (Neg); RSV by PCR Negative (Neg); SARS CoV2 RNA(COVID-19) Ceph NEGATIVE (Negative)
[2023-07-15] MEDS: rOPINIRole HCL 1 MG TABLET PO SCH (21:47)
[2023-07-15] MEDS: CARBIDOPA/LEVODOPA 25/100MG TAB PO SCH (21:49)
[2023-07-15 23:56] LABS: ANTI-Xa, UFH(UnfractionatedHep 0.54 IU/ml (0.3-0.7)
[2023-07-16 06:54] LABS: Basophils # (auto) 0.03 K/uL (0.00-0.20); Basophils % (auto) 0.4 %; Eosinophils # (auto) 0.35 K/uL (0.00-0.50); Eosinophils % (auto) 4.8 %; Hematocrit (blood only) 42.1 % (37.0-47.0); Immature Granulocytes # (auto) 0.04 K/uL (0.01-0.20); Immature Granulocytes % (auto) 0.6 %; Lymphocytes # (auto) 3.24 K/uL (1.20-3.40); Lymphocytes % (auto) 44.6 %; Mean Corpuscular Hemoglobin 29.4 pg (25.0-34.0); Mean Corpuscular Hgb Conc 33.3 g/dL (32.0-36.0); Mean Corpuscular Volume 88.3 fL (80.0-100.0); Mean Platelet Volume 10.9 fL (9.4-12.4); Monocytes # (auto) 0.55 K/uL (0.11-0.59); Monocytes % (auto) 7.6 %; Neutrophils # (auto) 3.05 K/uL (1.40-6.50); Platelet Count 207 K/uL (130-400); RDW Coefficient of Variation 12.2 % (11.5-14.5); RDW Standard Deviation 39.5 fL (36.4-46.3); Red Blood Count 4.77 M/uL (4.20-5.40); White Blood Count 7.26 K/ul (4.8-10.8)
[2023-07-16 07:12] LABS: Estimated Average Glucose 111 mg/dl; Hemoglobin A1C 5.5 % (4.5-5.6)
[2023-07-16 07:15] LABS: Albumin Globulin Ratio 1.6 (0.9-2); Albumin Level 3.9 gm/dl (3.4-5.0); BUN Creatinine Ratio 21.2 (10-20); Bilirubin,Total 0.6 mg/dl (0.2-1.0); Calcium 8.4 mg/dl (8.6-10.3); Creatinine Clr Calc Pharmacy 68.4 ml/min; Est GFR (African American) 79.3 ml/min; Est GFR (Non-African American) 68.5 ml/min; Globulin 2.5 gm/dl (2.5-4.0); Magnesium 1.9 mg/dl (1.7-2.4); Potassium 3.7 mmol/L (3.5-5.1); Total Protein 6.4 gm/dl (6.0-8.3)
[2023-07-16 07:27] LABS: ANTI-Xa, UFH(UnfractionatedHep 0.44 IU/ml (0.3-0.7)
[2023-07-16 07:33] LABS: INR 1.1 (0.9-1.1); Prothrombin Time 12.2 Seconds (9.0-12.0)
[2023-07-16] MEDS: ASPIRIN 81 MG ECTAB PO SCH (08:19)
[2023-07-16] MEDS: DULoxetine HCL 60 MG CAP PO SCH (08:21)
[2023-07-16] MEDS: PROPRANOLOL HCL LA 80 MG CAPCR PO SCH (08:21)
--- NOTE | 2023-07-16 08:35 | Hospitalist Progress Note ---
Date of Service July 16, 2023 Assessment & Plan (1) Non-ST elevation [place] (NSTEMI): Plan: Presented to the ED after experiencing multiple episodes of substernal chest pain/pressure with radiation to the back, left neck/jaw, and left arm for past day/day and a half, had episode lasting about 45 minutes before subsiding after ED arrival. Symptoms also associated with SOB, currently experiencing mild SOB without other associated symptoms EKGs w/ NSR w/ DT depressions in inferior/anterior leads but without ST segment elevation s/p ASA 324 mg in ER, continued on ASA 81mg daily Heparin gtt, low dose started/continued Initial high sen trop elevated at 259-->311 -> up to 330 but trended down on repeat this morning to 318 NO CHEST PAIN at present, does have some shortness of breath (as well as nausea from taking pills on empty stomach this morning, zofran available prn) A1c 5.5 Lipid panel w/ TRG 88, Cholesterol 194 (LDL 112) - will plan to add statin therapy (hx of HLD but not on agent at baseline) - dosing TBD pending cath Remains on propranolol 160mg daily (on for her tremors/hx parkisons) Monitor on telemetry Cardiology consulted ECHO pending Remains NPO-- discussed w/ Dr Lin (saw this morning already) and will continue NPO and plan for cath later today Monitor labs on repeat (2) SOB (shortness of breath): Plan: Reports of SOB w/ her episodes of CP -- continued while CP free Ddimer checked, slightly elevated - CTA chest obtained which was NEGATIVE for PE COVID/Flu/RSV negative Was given pepcid/protonix without change, monitor for GI proph while on heparin gtt CXR w/o acute process, on room air 94% Suspect could be from her NSTEMI -- monitor following cath/possible intervention (3) Chest pain: Plan: -See NSTEMI, currently chest pain free EKG w/ CP Telemetry monitoring, heparin gtt, NPO Cath for today as above (4) Parkinsons disease: Plan: Continue Carbidopa/levodopa and Propranolol Plan DVT proph: heparin gtt NPO for cath for today Admission and Anticipated Discharge Date Admission Date: July 15, 2023 Supervising Physician Co-Signing Physician Notes The patient was not seen by me. The chart was reviewed. Case discussed with OTTO Neri. Agree with assessment and plan Subjective Evaluated this morning, laying in bed. Daughter and daughter in law at bedside. Denies chest pain but does have some continued shortness of breath but much better than when she came in. Discussed spoke with cardiology and planning for cardiac catheterization this afternoon and will continue NPO. Discussed will plan to add statin/when to take to prevent issues w/ side effects at night. She does have a little nausea this morning and reports she just took her am medications and this occurs at home when she takes them on an empty stomach. Discussed RN to check on her shortly/provide zofran if needed. Questions/concerns addressed at this time. Physical Exam Physical Exam: General: 72yo female sitting up in bed, family at bedside, NAD but does appear a little anxious at times, reporting some nausea since taking her medications this morning HEENT; head atraumatic, normocephalic, mmm, trachea midline Resp: even/unlabored, no w/c/r, slightly diminished in the bases, on room air 94% CV: RRR, no significant mrg, no pitting edema/calf tenderness GI: +BS, soft/NT no peguero MSK/neuro: nonfocal, no slurred speech, answering questions appropriately, baseline tremor appreciated (hx parkinsons) Psych: AOx3, cooperative with exam Results & Data Results & Data Vital Signs (Past 12 Hours) Vital Signs Pulse Pulse Resp BP BP Pulse Ox Pulse Ox 07/16/23 08:26 69 07/16/23 06:26 70 18 117/79 94 07/16/23 04:27 67 20 109/79 95 07/16/23 00:42 66 20 94 07/15/23 23:04 71 07/15/23 22:40 131/86 07/15/23 22:32 97 H 14 93 07/15/23 22:00 104 H 16 95 07/15/23 21:49 96 07/15/23 21:30 70 18 93 07/15/23 21:00 77 23 07/15/23 20:30 97 H 16 93 O2 Del Method O2 Del Method 07/16/23 08:26 07/16/23 06:26 Room Air 07/16/23 04:27 Room Air 07/16/23 00:42 Room Air 07/15/23 23:04 07/15/23 22:40 07/15/23 22:32 Room Air 07/15/23 22:00 07/15/23 21:49 Room Air 07/15/23 21:30 07/15/23 21:00 07/15/23 20:30 Laboratory Results 07/16/23 07/15/23 07/15/23 Range/Units 06:24 23:34 20:00 WBC 7.26 (4.8-10.8) K/ul RBC 4.77 (4.20-5.40) M/uL Hgb 14.0 (12.0-16.0) g/dl Hct 42.1 (37.0-47.0) % MCV 88.3 (80.0-100.0) fL MCH 29.4 (25.0-34.0) pg MCHC 33.3 (32.0-36.0) g/dL RDW Std Deviation 39.5 (36.4-46.3) fL RDW Coeff of Karla 12.2 (11.5-14.5) % Plt Count 207 (130-400) K/uL MPV 10.9 (9.4-12.4) fL Immature Gran % (Auto) 0.6 % Neut % (Auto) 42.0 % Lymph % (Auto) 44.6 % Jefferson % (Auto) 7.6 % Eos % (Auto) 4.8 % Baso % (Auto) 0.4 % Neut # (Auto) 3.05 (1.40-6.50) K/uL Lymph # (Auto) 3.24 (1.20-3.40) K/uL Jefferson # (Auto) 0.55 (0.11-0.59) K/uL Eos # (Auto) 0.35 (0.00-0.50) K/uL Baso # (Auto) 0.03 (0.00-0.20) K/uL Immature Gran # (Auto) 0.04 (0.01-0.20) K/uL Neutrophils % (Manual) % Lymphocytes % (Manual) % Monocytes % (Manual) % Eosinophils % (Manual) % Neutrophils # (Manual) (1.40-6.50) K/uL Total Absolute Neuts (1.4-6.5) K/uL Lymphocytes # (Manual) (1.2-3.4) K/uL Total Abs Lymphocytes (1.2-3.4) K/uL Monocytes # (Manual) (0.11-0.59) K/uL Eosinophils # (Manual) (0-0.50) K/uL PT 12.2 H INR 1.1 APTT PTT Ratio D-Dimer (0-500) ug/L FEU Heparin Anti-Xa, Unfract 0.44 0.54 (0.3-0.7) IU/ml Sodium 139 Potassium 3.7 Chloride 105 (98-107) mmol/L Carbon Dioxide 28 (21-32) mmol/L Anion Gap 6 BUN 18 (6-23) mg/dl Creatinine 0.85 (0.6-1.2) mg/dl Est Cr Clr Drug Dosing 68.4 ml/min Est GFR ( Amer) 79.3 ml/min Est GFR (Non-Af Amer) 68.5 ml/min BUN/Creatinine Ratio 21.2 H (10-20) Glucose 88 (70-99(Fasting)) mg/dl Estimat Average Glucose 111 mg/dl Hemoglobin A1c 5.5 (4.5-5.6) % Calcium 8.4 L (8.6-10.3) mg/dl Magnesium 1.9 Total Bilirubin 0.6 (0.2-1.0) mg/dl AST 14 ALT 5 L (7-52) U/L Alkaline Phosphatase 77 Troponin I High Sens 318.2 H* 330.3 H* (0-14) pg/ml Total Protein 6.4 (6.0-8.3) gm/dl Albumin 3.9 Globulin 2.5 Albumin/Globulin Ratio 1.6 Triglycerides 88 (0-150) mg/dl Cholesterol 194 (0-200) mg/dl LDL Cholesterol, Calc 112 mg/dl VLDL Cholesterol, Calc 18 (0-30) mg/dl HDL Cholesterol 64 mg/dl Cholesterol/HDL Ratio 3.0 (0-5) Lipase (11-82) U/L SARS-CoV-2 (PCR) NEGATIVE (Negative) Influenza Type A (PCR) Negative (Neg) Influenza Type B (PCR) Negative (Neg) RSV (RT-PCR) Negative (Neg) 07/15/23 07/15/23 07/15/23 Range/Units 18:35 16:04 14:42 WBC 7.28 (4.8-10.8) K/ul RBC 5.24 (4.20-5.40) M/uL Hgb 15.2 (12.0-16.0) g/dl Hct 46.7 (37.0-47.0) % MCV 89.1 (80.0-100.0) fL MCH 29.0 (25.0-34.0) pg MCHC 32.5 (32.0-36.0) g/dL RDW Std Deviation 40.5 (36.4-46.3) fL RDW Coeff of Karla 12.4 (11.5-14.5) % Plt Count 235 (130-400) K/uL MPV 11.7 (9.4-12.4) fL Immature Gran % (Auto) % Neut % (Auto) % Lymph % (Auto) % Jefferson % (Auto) % Eos % (Auto) % Baso % (Auto) % Neut # (Auto) (1.40-6.50) K/uL Lymph # (Auto) (1.20-3.40) K/uL Jefferson # (Auto) (0.11-0.59) K/uL Eos # (Auto) (0.00-0.50) K/uL Baso # (Auto) (0.00-0.20) K/uL Immature Gran # (Auto) (0.01-0.20) K/uL Neutrophils % (Manual) 43 % Lymphocytes % (Manual) 47 % Monocytes % (Manual) 5 % Eosinophils % (Manual) 5 % Neutrophils # (Manual) 3.13 (1.40-6.50) K/uL Total Absolute Neuts 3.13 (1.4-6.5) K/uL Lymphocytes # (Manual) 3.42 H (1.2-3.4) K/uL Total Abs Lymphocytes 3.42 H (1.2-3.4) K/uL Monocytes # (Manual) 0.36 (0.11-0.59) K/uL Eosinophils # (Manual) 0.36 (0-0.50) K/uL PT 11.9 Cancelled INR 1.1 Cancelled APTT 28 Cancelled PTT Ratio 1.0 Cancelled D-Dimer 720 H* (0-500) ug/L FEU Heparin Anti-Xa, Unfract (0.3-0.7) IU/ml Sodium 138 TNP Potassium 4.2 TNP Chloride 103 (98-107) mmol/L Carbon Dioxide 29 (21-32) mmol/L Anion Gap TNP BUN 20 (6-23) mg/dl Creatinine 0.73 (0.6-1.2) mg/dl Est Cr Clr Drug Dosing 79.6 ml/min Est GFR ( Amer) 95.4 ml/min Est GFR (Non-Af Amer) 82.3 ml/min BUN/Creatinine Ratio 27.4 H (10-20) Glucose 90 (70-99(Fasting)) mg/dl Estimat Average Glucose mg/dl Hemoglobin A1c (4.5-5.6) % Calcium 9.0 (8.6-10.3) mg/dl Magnesium 1.8 TNP Total Bilirubin 0.6 (0.2-1.0) mg/dl AST 16 TNP ALT 5 L (7-52) U/L Alkaline Phosphatase 84 TNP Troponin I High Sens 292.5 H* 311.2 H* D 259.0 H* (0-14) pg/ml Total Protein 7.5 (6.0-8.3) gm/dl Albumin 4.1 TNP Globulin TNP Albumin/Globulin Ratio TNP Triglycerides (0-150) mg/dl Cholesterol (0-200) mg/dl LDL Cholesterol, Calc mg/dl VLDL Cholesterol, Calc (0-30) mg/dl HDL Cholesterol mg/dl Cholesterol/HDL Ratio (0-5) Lipase 18 (11-82) U/L SARS-CoV-2 (PCR) (Negative) Influenza Type A (PCR) (Neg) Influenza Type B (PCR) (Neg) RSV (RT-PCR) (Neg) Diagnostic Findings Chest X-Ray 07/15/23 14:33 XR chest 1V not portable CLINICAL HISTORY: Chest pain, nonspecific TECHNIQUE: Single frontal radiograph of the chest was obtained. Comparison: None available at the time of this dictation. FINDINGS: No lines and tubes are seen. The cardiomediastinal silhouette is normal. The lungs are clear. No evidence of pleural effusion or pneumothorax. IMPRESSION: No acute chest disease. ACT 112: Negative or not required by law. Electronically signed by: Antolin Casinao M.D. 07/15/2023 3:12 PM Chest CTA 07/15/23 18:16 Exam(s): CTA CHEST IV Amt: 113 cc opti 320 EXAM: CT Angiography Chest With Intravenous Contrast CLINICAL HISTORY: Reason for exam: PE. TECHNIQUE: Axial computed tomographic angiography images of the chest with intravenous contrast. CTDI is 31.85 mGy and DLP is 0 mGy-cm. Automated exposure control was utilized for the study. A dose lowering technique was utilized adhering to the principles of ALARA. MIP reconstructed images were created and reviewed. COMPARISON: No relevant prior studies available. FINDINGS: LUNGS: No focal consolidation, pleural effusion, or pneumothorax. Atelectasis at the lung bases. HEART: Cardiomegaly. VASCULATURE: No acute pulmonary embolism. Atherosclerotic changes of the aorta. THYROID: Within normal limits. MEDIASTINUM + LYMPH NODES: There are no pathologically enlarged mediastinal, hilar, or axillary lymph nodes. SUPERIOR ABDOMEN: Hepatic steatosis. MUSCULOSKELETAL: Degenerative changes. IMPRESSION: No acute pulmonary embolism. Electronically signed by: Dontae De Oliveira MD 07/15/23 21:02 PM PG Care Time/CCT Total # of Minutes Spent Total Time Spent with Patient: Total time spent is greater than 50% in coordination of care (as documented) at patient's floor/unit and/or counseling patient: Coding Level of Care Code 29406 SUB INP/OBS CARE 3/50MIN Diagnoses Non-ST elevation [place] (NSTEMI) I21.4 SOB (shortness of breath) R06.02 Chest pain R07.9 Parkinsons disease G20
[2023-07-16] MEDS: ONDANSETRON INJ 2 MG/ML 2 ML VIAL IV PRN (10:51)
--- NOTE | 2023-07-16 12:08 | Cardiology Consultation ---
Date of Consultation July 16, 2023 Assessment & Plan (1) Chest pain: (2) Non-ST elevation IA (NSTEMI): (3) Parkinsonism: Plan 72-year-old woman with no cardiac history and no major vascular risk factors who has been experiencing chest pain at rest which is increasing in frequency. May be crescendo angina, but no clear exertional component. Could be myocarditis with flat troponin curve, but her symptoms are intermittent, which makes this seem unlikely. ECG findings are chronic, but elevated troponin remains unexplained. Would not favor stress testing given rest symptoms/elevated troponin, recommend proceeding to cardiac catheterization to evaluate coronary anatomy and better characterize the etiology of her significant recurring chest pain/elevated troponin. After discussion of risks/benefits, she is in agreement. History of Present Illness Reason for Consultation: NSTEMI, currently pain free Requesting Physician: Perfecto Pan MD Attending Physician: Perfecto Pan MD History of Present Illness 72-year-old woman with history of Parkinson's disease, no cardiac history, who noted recent onset of recurring chest pain, ER evaluation showed elevated troponin with chronic ST abnormalities on her ECG. At recent baseline, she was physically active and able to walk without dyspnea or chest discomfort. She had noted some mild decrease in exercise tolerance but no chest pain until the past 1 to 2 weeks, when she began having recurring episodes of anterior chest discomfort radiating to her left neck/jaw and left arm, lasting half an hour to an hour, no relation to activity or breathing, transient shortness of breath or chest pain but no other associated symptoms (no diaphoresis, palpitations, or lightheadedness). She had an episode yesterday prompting ER visit, she had also had an episode the day before. No further chest discomfort overnight or today. Her ECG showed persistent but only minimally increased diffuse ST depression which was also noted on ECG from 2019. Troponin values ranged between 259 and 330 on 6 draws with a rather flat curve. Echocardiogram showed normal LV systolic function, no wall motion abnormalities, mild MR with normal LA size. At the time my evaluation this morning, she had no somatic complaints. Allergies Allergy/AdvReac Type Severity Reaction Status Date / Time gabapentin AdvReac Severe HALLUCINATI Verified 07/15/23 16:46 ONS oxycodone AdvReac Severe HALLUCINATI Verified 07/15/23 16:46 ONS/DIZZINE SS Home Medications Medication Instructions Recorded Confirmed Type acetaminophen 500 mg tablet 1,000 mg PO TID PRN Pain #90 tabs 11/20/18 07/15/23 History duloxetine 60 mg capsule,delayed 60 mg PO DAILY #90 caps 10/31/22 07/15/23 Rx release meloxicam 15 mg tablet 15 mg PO DAILY #90 tabs 02/11/23 07/15/23 Rx carbidopa 25 mg-levodopa 100 mg 1.5 tab PO TID 90 days #405 tabs 06/30/23 07/15/23 Rx tablet propranolol 160 mg capsule,24 160 mg PO DAILY #90 caps 06/30/23 07/15/23 Rx hr,extended release ropinirole 1 mg tablet 1 mg PO TID 90 days #270 tabs 06/30/23 07/15/23 Rx Patient History Medical History Lumbar disc disease COVID-19 (12/2021) Vitamin D deficiency Parkinsonism Migraine without aura and without status migrainosus, not intractable Benign familial tremor Fibromyalgia Hyperlipidemia, unspecified Osteoporosis, unspecified Surgical History History of cataract surgery (2020) Both eyes S/P tooth extraction S/P tonsillectomy and adenoidectomy Family History Father Myocardial infarction Coronary heart disease Tremor Stroke Mother , age 79 Pancreatic cancer Brother Tremor Melanoma Grandmother (Maternal) Crohn's colitis Daughter Crohn's colitis Denies family history of Ovarian cancer Prostate cancer Diabetes Breast cancer Lung cancer Colorectal cancer Social History Smoking Status: Never smoker Second Hand Exposure: No; Do You Dip or Chew Tobacco: No; Hx Alcohol Use: No Hx Substance Use: No Preferred Language: Korean Communication Ability: Effective Visual Impairment: No Limitations Hearing Ability: Normal International Banker Required: No Beliefs That Will Affect Care: None marital status: Single Current Living Situation: Significant 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 Afebrile. Normotensive. Pulse 69 bpm regular. Respirations 18 unlabored. Skin: no ecchymoses or generalized lesions. HEENT: unremarkable. Neck: JVP at the clavicle at 90 degrees, no carotid bruits. Lungs: clear. Cardiac: regular rhythm, normal S1-2, no murmur. Abdomen: benign. Extremities: no edema, pulses intact. Neurologic: normal affect and conversation, nonfocal. Results & Data Vital Signs (Past 12 Hours) Vital Signs Pulse Pulse Resp BP Pulse Ox O2 Del Method 07/16/23 08:26 69 07/16/23 06:26 70 18 117/79 94 Room Air 07/16/23 04:27 67 20 109/79 95 Room Air 07/16/23 00:42 66 20 94 Room Air Laboratory Results Troponins as noted. Normal electrolytes, BUN 18, creatinine 0.85. Normal CBC. Diagnostic Findings Initial ECG showed sinus at 68 bpm with diffuse nonspecific curving ST depression of about 1 mm. Unchanged compared with 2020 ECG. Repeat ECG similar. Chest x-ray and chest CT unremarkable. No pulmonary embolism. PG Care Time/CCT Total # of Minutes Spent Total Time Spent with Patient: Total time spent is greater than 50% in coordination of care (as documented) at patient's floor/unit and/or counseling patient: Coding Level of Care Code 35437 IN/OBS CONSULT LVL 4,60M Diagnoses Chest pain R07.9 Non-ST elevation IA (NSTEMI) I21.4 Parkinsonism G20
--- NOTE | 2023-07-16 12:28 | XCELERA ---
[id number]
--- NOTE | 2023-07-16 13:33 | Pre Anesthesia Assessment ---
Date of Service July 16, 2023 Pre Sedation Assessment Vital Signs Temp Pulse Pulse Resp BP BP Pulse Ox 07/16/23 13:30 77 16 143/76 H 98 07/16/23 08:26 69 07/16/23 06:26 70 18 117/79 94 07/16/23 04:27 67 20 109/79 95 07/16/23 00:42 66 20 94 07/15/23 23:04 71 07/15/23 22:40 131/86 07/15/23 22:32 97 H 14 93 07/15/23 22:00 104 H 16 95 07/15/23 21:49 07/15/23 21:30 70 18 93 07/15/23 21:00 77 23 07/15/23 20:30 97 H 16 93 07/15/23 20:00 81 19 96 07/15/23 19:56 82 07/15/23 19:30 25 H 93 07/15/23 19:16 103 H 19 07/15/23 18:30 119 H 21 07/15/23 18:00 69 17 95 07/15/23 18:00 97 07/15/23 17:30 75 20 95 07/15/23 17:10 71 17 94 07/15/23 16:57 73 19 133/90 94 07/15/23 16:45 56 L 07/15/23 16:30 72 20 95 07/15/23 16:00 0 L 22 95 07/15/23 15:59 133/90 07/15/23 15:59 0 L 19 96 07/15/23 14:32 36.8 C 71 18 140/100 93 Pulse Ox O2 Del Method O2 Del Method 07/16/23 13:30 Room Air 07/16/23 08:26 07/16/23 06:26 Room Air 07/16/23 04:27 Room Air 07/16/23 00:42 Room Air 07/15/23 23:04 07/15/23 22:40 07/15/23 22:32 Room Air 07/15/23 22:00 07/15/23 21:49 96 Room Air 07/15/23 21:30 07/15/23 21:00 07/15/23 20:30 07/15/23 20:00 Room Air 07/15/23 19:56 07/15/23 19:30 07/15/23 19:16 07/15/23 18:30 07/15/23 18:00 07/15/23 18:00 Room Air 07/15/23 17:30 07/15/23 17:10 07/15/23 16:57 Room Air 07/15/23 16:45 07/15/23 16:30 07/15/23 16:00 07/15/23 15:59 07/15/23 15:59 07/15/23 14:32 Room Air Cardiovascular RRR, no murmur, no edema Respiratory normal respiratory effort, lungs clear to auscultation Pre-Sedation Airway Assessment Smoking Status: Never smoker MALLAMPATI 2 ASA 3 Notes The planned sedation has been discussed with the patient. Informed Consent was obtained. I have identified the patient, determined the appropriateness of sedation and have assessed the patient immediately prior to the procedure. All medicine(s) and interventions are by my order.
[2023-07-16] MEDS: niCARdipine HCL INJ 2.5 MG/ML 10 ML AMP ONE (13:55)
[2023-07-16] MEDS: NITROGLYCERIN/D5W 100MCG/ML 20ML SYR ONE (13:55)
[2023-07-16] MEDS: MIDAZOLAM HCL 1 MG/ML 2ML VIAL ONE (13:55)
[2023-07-16] MEDS: OPTIRAY 350 ONE (14:35)
[2023-07-16] MEDS: TICAGRELOR 90 MG TAB ONE (14:37)
[2023-07-16] MEDS: HEPARIN (PORCINE) 1000 UNIT/ML 10 ML (CATH LAB USE ONLY) ONE (14:37)
[2023-07-16] MEDS: fentaNYL citrate PF 100 MCG/2 ML VIAL ONE (14:37)
--- NOTE | 2023-07-16 15:49 | Post Anesthesia Assessment ---
Date of Service July 16, 2023 Post Sedation Assessment Vital Signs Temp Pulse Pulse Resp BP BP BP 07/16/23 15:30 71 18 103/75 07/16/23 15:13 36.4 C L 72 20 113/73 07/16/23 15:00 68 14 113/80 07/16/23 14:40 69 14 124/84 07/16/23 13:30 77 16 143/76 H 07/16/23 08:26 69 07/16/23 06:26 70 18 117/79 07/16/23 04:27 67 20 109/79 07/16/23 00:42 66 20 07/15/23 23:04 71 07/15/23 22:40 131/86 07/15/23 22:32 97 H 14 07/15/23 22:00 104 H 16 07/15/23 21:49 07/15/23 21:30 70 18 07/15/23 21:00 77 23 07/15/23 20:30 97 H 16 07/15/23 20:00 81 19 07/15/23 19:56 82 07/15/23 19:30 25 H 07/15/23 19:16 103 H 19 07/15/23 18:30 119 H 21 07/15/23 18:00 69 17 07/15/23 18:00 07/15/23 17:30 75 20 07/15/23 17:10 71 17 07/15/23 16:57 73 19 133/90 07/15/23 16:45 56 L 07/15/23 16:30 72 20 07/15/23 16:00 0 L 22 07/15/23 15:59 133/90 07/15/23 15:59 0 L 19 Pulse Ox Pulse Ox O2 Del Method O2 Del Method 07/16/23 15:30 92 Room Air 07/16/23 15:13 92 Room Air 07/16/23 15:00 94 Room Air 07/16/23 14:40 94 Room Air 07/16/23 13:30 98 Room Air 07/16/23 08:26 07/16/23 06:26 94 Room Air 07/16/23 04:27 95 Room Air 07/16/23 00:42 94 Room Air 07/15/23 23:04 07/15/23 22:40 07/15/23 22:32 93 Room Air 07/15/23 22:00 95 07/15/23 21:49 96 Room Air 07/15/23 21:30 93 07/15/23 21:00 07/15/23 20:30 93 07/15/23 20:00 96 Room Air 07/15/23 19:56 07/15/23 19:30 93 07/15/23 19:16 07/15/23 18:30 07/15/23 18:00 95 07/15/23 18:00 97 Room Air 07/15/23 17:30 95 07/15/23 17:10 94 07/15/23 16:57 94 Room Air 07/15/23 16:45 07/15/23 16:30 95 07/15/23 16:00 95 07/15/23 15:59 07/15/23 15:59 96 Recovery Score Activity: Moves 4 extremities Respiration: Deep Breath/Cough Circulation: +/-20% PreAnes Value Consciousness: Fully Awake Oxygen Saturation: > 92% On Room Air Post Anesthesia Score: 10 Discharge Sedation Level of Care: Fast Track Phase II Post Sedation Plan On clinical assessment, the patient appears to have tolerated the sedation without complications. Patient is recovering as anticipated. Patient will continue to be monitored by nursing and may be discharged when sedation discharge criteria are met per below protocol. Upon Completions of procedure up to 15 minutes continue every 5 minute vital signs and the P.A.R. score; then discharge to a Phase I or Fast Track to Phase II per the following guidelines: * Discharge Patient to appropriate Phase II area if PAR is 8 or greater or return to pre- procedure baseline. The post - procedure orders will be as directed. * If PAR score is less than 8 or not return to pre-procedure baseline then patient will follow Phase I monitoring till PAR is reached for Phase II. The Phase I may be done in procedure room or may call to secure a Phase I area. * If naloxone or flumazenil are used for reversal, hold in Phase I for continued monitoring from when last reversal dose was given for a minimum of 60 minutes or longer pending the nurse and/or physician discretion of patient condition before discharge to Phase II. Please call the Sedation Physician to re-evaluate and complete post-note for discharge to Phase II area. Do NOT discharge from procedure sedation or Phase 1 until post- sedation evaluation note is complete by procedure /sedation MD Sedation Discharge Instructions to be given to the patient at discharge to home.
--- NOTE | 2023-07-16 15:52 | Cardiac Catheterization ---
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 Cardiac Status Clinical evaluation leading to the procedure CAD Presenation: Non STEMI Anginal Classification: CCS IV Heart Failure: No Cardiogenic Shock within 24 Hours: No Cardiac Arrest within 24 Hours: No Imaging Studies Past 6 Months: No Stress Studies Past 6 Months: No Coronary Anatomy Dominant: Right Left Main (% Stenosis): Normal LAD (% Stenosis): Proximal (50%), Mid (Calcified 50 to 70%) and Distal (Calcified 50%) D1 (% Stenosis): Proximal (90%) D2 (% Stenosis): Normal (Diffuse up to 80%) Circumflex (% Stenosis): Distal (Long eccentric 50 to 70%) OM1 (% Stenosis): Proximal (Long 90% with thrombus) L PL1 (% Stenosis): Normal RCA (% Stenosis): Normal (Scattered 30%) R PDA (% Stenosis): Proximal (50 to 70%) R PL1 (% Stenosis): Normal Ramus (% Stenosis): Normal Diagnostic Physicians Name: Carson Rowan MD, PhD Closure Device Percutaneous Entry Location: Radial Closure Device: Radial Band Recommendations: Medical Therapy and/or Counseling and PCI without planned CABG Lesion Segment Name: Proximal OM1 Culprit Artery: Yes Stenosis Prior to Rx (%): 90% Chronic Total Occlusion: No Pre-Procedure NICHELLE Flow: 2 Previously Treated Lesion: No Lesion Complexity: Non-High/Non-C Lesion Length (mm): 14 mm Thrombus Present: Yes Bifurcation Lesion: No Guidewire Across Lesion: Yes Intraprocedure Events Significant Disection: No Perforation: No Cardiac Cath Procedure Full Procedure Date July 16, 2023 Pre-Procedure Diagnosis Pre-Procedure Diagnosis: Non STEMI AUC Score AUC Score: 07 Post-Procedure Diagnosis Post-Procedure Diagnosis: Severe CAD and Successful PCI Procedure(s) Performed Procedure(s) Performed: Coronary Angiography, Drug Eluting Stent and Fractional Flow [place] [employer] Attendant Carson Rowan MD, PhD Estimated Blood Loss Estimated Blood Loss: 10 CC Medication(s) Medication(s): Fentanyl, Heparin, Lidocaine 1%, Nicardipine, Nitroglycerin and Versed Summary of Findings Brief description: Patient was brought to the cardiac catheterization suite where she was shaved and prepped in a sterile fashion. Sedated using IV Versed and fentanyl. Soft tissues of the right wrist were anesthetized using 2 mL of 1% Xylocaine. The right radial artery was accessed with a modified Seldinger technique and a 6 [place] radial artery glide sheath was placed. All catheters were advanced and exchanged over a 0.035 J-tip wire. Patient was provided anticoagulation with IV heparin and antispasmodics including nicardipine and nitroglycerin. Left coronary angiography in orthogonal views with a 5 [place] Trout 4 diagnostic catheter. Right coronary angiography in orthogonal views with a 5 [place] Trout 4 diagnostic catheter. Diagnostic catheter was removed. We proceeded next with IFR analysis of the LAD lesion. A 6 [place] EBU 3.0 guide catheter was used to engage the left main coronary. Through this, the Omni Doppler wave wire was advanced and positioned with its transducer just distal to the guide catheter tip. System was flushed with normal saline and then the pressures were normalized. Guidewire was then advanced beyond the lesion in the LAD. iFR was sampled 3 times. The guidewire was then removed. We next proceeded with PCI of the obtuse marginal branch. ACT was checked intermittently and the patient was provided heparin as needed to maintain a therapeutic ACT. Through the EBU guide catheter a BMW universal guidewire was advanced and positioned distally in the OM branch of the circumflex. Lesion was predilated using a 2.5 x 12 mm trek balloon at 8 yovani for 4 different inflations. A 2.5 x 18 mm Ashvin drug-eluting stent was delivered across the lesion using the addition of a guide liner catheter. The stent was then deployed initially at 12 yovani and then a second inflation to 14 yovani. Stent balloon and guide liner were then removed. Coronary angiography was performed in orthogonal views. Guide catheter was removed. Patient was provided 180 mg of Brilinta p.o. The radial sheath was removed and hemostasis was obtained using the radial band. Patient was hemodynamically stable and asymptomatic. She was returned to the recovery area. This ended the case. Coronary angiography findings: SHT-indfw-kwhlegl vessel trifurcating into LAD, ramus, and circumflex. No disease. UVA-vlixs-aehcbda and transapical. Proximal disease of up to 50%. It gives a small caliber first diagonal which has proximal 90% stenosis. The mid segment has mild to moderate calcification and 50 to 70% stenosis at the level of the second diagonal. The second diagonal is medium caliber and branching with diffu se disease of up to 80%. The early distal LAD is moderately calcified and has up to 50% stenosis. Ramus-small to medium without significant disease. LCx-large and nondominant. Proximal AV groove vessel appears normal. He gives a large caliber OM1. This has a proximal long eccentric up to 90% stenosis with some small amount of thrombus. Beyond this the vessel remains relatively large in caliber and has several branches. There is NICHELLE II flow beyond the lesion. This is the culprit vessel. The mid AV groove circumflex has no significant disease and gives an atrial branch. Then, the distal AV groove vessel becomes smaller in caliber and has a long eccentric 50 to 70% stenosis before it terminates in a small posterolateral branch. CFH-esoyg-ozipuqe and dominant. There is scattered mild less than 30% stenosis in the RCA. Distally it bifurcates into a medium caliber, long PDA which has proximal 50 to 70% stenosis. The vessel appears less than 2 mm in diameter. There is also a large branching posterolateral which has no significant disease. IFR of LAD-0.92, 0.91, 0.92. Therefore, this is not hemodynamically significant. No evidence of dissection or perforation post IFR analysis NICHELLE-3 flow post IFR analysis PCI of OM1- 0% residual stenosis post PCI No evidence of dissection or perforation post PCI NICHELLE-3 flow post PCI Summary: 1. 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 2. IFR analysis of the LAD demonstrates that these lesions do not meet criteria for hemodynamic significance. 3. Successful PCI with implantation of a drug-eluting stent to the large br anching OM1. 4. Dual antiplatelet therapy with aspirin 81 mg daily and Brilinta 90 mg p.o. twice daily. 5. Guideline directed medical therapy for secondary prevention of coronary disease to include; low-dose aspirin, high intensity statin therapy, beta- amol, plus or minus YOLANDA inhibitor/ARB as tolerated. 6. Highly recommend CARDIAC REHAB. Hemodynamics Rest Ao:: 97/70 mmHg Final Ao: 104/71 mmHg LV: Not performed Recommendations Recommendations: Medical Therapy and/or Counseling and PCI without planned CABG Radiation Exposure (mGy) 2294 mGy, fluoroscopy time 12.2 minutes Contrast (mls) 160 mL Anesthesia 2 mg Versed, 50 mcg fentanyl IV. Start 1350, end 1435 Procedural Complication(s) None Disposition Master [address] [employer] [address] Security Holding/Recovery I attest to the content of the Intraoperative Record and any orders documented therein. Any exceptions are noted below. [facility] Card Cath Procedure Codes Cardiac Catheterization Procedure 1: Cardiovascular Cath Procedures: 31422 Coronaries Procedure 2: Cardiovascular Cath Procedures: 77162 (Doppler) Pressure Wire Moderate Sedation Procedure 1: Sedation/Anesthesia: 45218 Mod Sedation by the same physician;Init15 Min Child Age 5 & Up (Initial 15 min, start time 1350) Procedure 2: Sedation/Anesthesia: 26600 Mod Sedation by the same physician; Ea [id number] Minutes (Additional 30 min, end time 1435) Stenting Procedure 1: Cardiovascular Stent Procedures: 79817 Perc transluminal revascularization of acute sub/total occl, aMI (OM) PG Care Time/CCT Total # of Minutes Spent Total Time Spent with Patient: Total time spent is greater than 50% in coordination of care (as documented) at patient's floor/unit and/or counseling patient:
[2023-07-16 16:57] LABS: ANTI-Xa, UFH(UnfractionatedHep > 1.50 IU/ml (0.3-0.7)
[2023-07-16] MEDS: TICAGRELOR 90 MG TAB PO SCH (20:12)
[2023-07-16 22:20] LABS: Appearance Urine Clear (Clear); Bacteria Urine Automated Negative (Negative); Bilirubin Urine Negative (Negative); Blood Urine Negative (Negative); Color Urine Yellow; Epithelial Cell Urine Auto >30 /lpf (0-5); Glucose Urine UA Negative (Negative); Ketones Urine Trace (Negative); Leukocyte Esterase Urine Negative (Negative); Nitrite Urine Negative (Negative); RBC Urine Automated 0-4 /hpf (0-4); Specific Gravity Urine > 1.045 (1.000-1.030); Urobilinogen Urine Negative (Negative); pH Urine 7.5 (4.5-7.5)
[2023-07-16 22:21] LABS: Protein Urine Trace (Negative)
[2023-07-16 22:34] LABS: Cast Urine Automated 0 /lpf (0-5)
[2023-07-17 04:08] LABS: Basophils # (auto) 0.01 K/uL (0.00-0.20); Basophils % (auto) 0.1 %; Eosinophils # (auto) 0.22 K/uL (0.00-0.50); Eosinophils % (auto) 2.5 %; Hematocrit (blood only) 40.4 % (37.0-47.0); Hemoglobin 13.7 g/dl (12.0-16.0); Immature Granulocytes # (auto) 0.03 K/uL (0.01-0.20); Immature Granulocytes % (auto) 0.3 %; Lymphocytes # (auto) 1.69 K/uL (1.20-3.40); Lymphocytes % (auto) 19.3 %; Mean Corpuscular Hemoglobin 29.7 pg (25.0-34.0); Mean Corpuscular Hgb Conc 33.9 g/dL (32.0-36.0); Mean Corpuscular Volume 87.4 fL (80.0-100.0); Mean Platelet Volume 10.7 fL (9.4-12.4); Monocytes # (auto) 0.66 K/uL (0.11-0.59); Monocytes % (auto) 7.5 %; Neutrophils # (auto) 6.16 K/uL (1.40-6.50); Neutrophils % (auto) 70.3 %; Platelet Count 194 K/uL (130-400); RDW Coefficient of Variation 12.3 % (11.5-14.5); RDW Standard Deviation 39.7 fL (36.4-46.3); Red Blood Count 4.62 M/uL (4.20-5.40); White Blood Count 8.77 K/ul (4.8-10.8)
[2023-07-17 04:10] LABS: Anion Gap 5 (3-11); BUN Creatinine Ratio 23.6 (10-20); Blood Urea Nitrogen 21 mg/dl (6-23); Calcium 8.4 mg/dl (8.6-10.3); Carbon Dioxide 26 mmol/L (21-32); Chloride 106 mmol/L (98-107); Creatinine Clr Calc Pharmacy 65.3 ml/min; Est GFR (Non-African American) 64.7 ml/min; Glucose 97 mg/dl (70-99(Fasting)); Potassium 3.8 mmol/L (3.5-5.1); Sodium 137 mmol/L (136-145)
[2023-07-17 04:11] LABS: Alanine Aminotransferase < 3 U/L (7-52); Albumin Globulin Ratio 1.7 (0.9-2); Albumin Level 3.8 gm/dl (3.4-5.0); Alkaline Phosphatase 74 U/L (34-104); Aspartate Aminotransferase 13 U/L (13-39); Bilirubin,Total 0.6 mg/dl (0.2-1.0); Globulin 2.3 gm/dl (2.5-4.0); Magnesium 1.8 mg/dl (1.7-2.4); Total Protein 6.1 gm/dl (6.0-8.3)
[2023-07-17 04:18] LABS: INR 1.1 (0.9-1.1); Prothrombin Time 11.9 Seconds (9.0-12.0); Troponin I High Sensitivity 460.3 pg/ml (0-14)
[2023-07-17] MEDS: ATORVASTATIN 40 MG TAB PO SCH (08:03)
--- NOTE | 2023-07-17 08:34 | Hospitalist Progress Note ---
Date of Service July 17, 2023 Assessment & Plan (1) Non-ST elevation ND (NSTEMI): Plan: Presented to the ED after experiencing multiple episodes of substernal chest pain/pressure with radiation to the back, left neck/jaw, and left arm for past day/day and a half, had episode lasting about 45 minutes before subsiding after ED arrival. Symptoms also associated with SOB, currently experiencing mild SOB without other associated symptoms EKGs w/ NSR w/ DT depressions in inferior/anterior leads but without ST segment elevation s/p ASA 324 mg in ER, continued on ASA 81mg daily Heparin gtt initiated Initial high sen trop elevated at 259-->311 -> up to 330 --> 318 on repeat and had denied CP since heparin/admission but had ongoing nausea/shortness of breath and NPO for cath per discussion with Dr Lin A1c 5.5 Lipid panel w/ TRG 88, Cholesterol 194 (LDL 112) Remains on propranolol 160mg daily (on for her tremors/hx Parkinson) ECHO w/ LV systolic function normal, EF 60-65%. LV wall motion normal. No regional wall motion abn noted. RV normal in size/function. Mild MR. LA size is normal s/p cardiac catheterization with Dr Rowan on 07/15 Summary: 1. 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 2. IFR analysis of the LAD demonstrates that these lesions do not meet criteria for hemodynamic significance. 3. Successful PCI with implantation of a drug-eluting stent to the large branching OM1. 4. Dual antiplatelet therapy with aspirin 81 mg daily and Brilinta 90 mg p.o. twice daily. 5. Guideline directed medical therapy for secondary prevention of coronary disease to include; low-dose aspirin, high intensity statin therapy, beta- amol, plus or minus YOLANDA inhibitor/ARB as tolerated. 6. Highly recommend CARDIAC REHAB. On propranolol 160mg daily for her tremors/parkinson's - will discuss w/ cardiology however likely to continue such given use for tremor and is beta blcoker Now on Aspirin/Brillinta, heparin gtt discontinued -- continue DAPT at discharge Atorvastatin 40mg daily YOLANDA/ARB as tolerated -- BP 124/81 at present Mild headache AM 3/7, tylenol administered. If doing well, possible dc this afternoon after seen/evaluated by cardiology Monitoring on telemetry (2) SOB (shortness of breath): Plan: Reports of SOB w/ her episodes of CP -- continued while CP free Ddimer checked, slightly elevated - CTA chest obtained which was NEGATIVE for PE COVID/Flu/RSV negative Was given pepcid/protonix without change, monitor for GI proph while on heparin gtt CXR w/o acute process, on room air 94% Suspect could be from her NSTEMI -- monitor following cath/possible intervention (reported improvement evening 3/6 following catheterization) (3) Chest pain: Plan: -See NSTEMI, currently chest pain free EKG w/ CP Telemetry monitoring, heparin gtt, NPO Cath for today as above (4) Parkinsons disease: Plan: Continue Carbidopa/levodopa and Propranolol Plan DVT proph: heparin gtt NPO for cath for today Admission and Anticipated Discharge Date Admission Date: July 15, 2023 Subjective Eval this morning, resting in bed. Reporting a little bit of a frontal headache/pressure. She reports she thinks this is from her parkinsons as this is very similar to prior headaches she's had/not worse or different. She just got a dose of tylenol and is resting at present time but to alert of any changes. She reports she continues to be chest pain free, able to take a deep breath without further shortness of breath. Not yet seen by cardiology but if headache resolved/no further issues can see about getting her discharged later this afternoon. Physical Exam Physical Exam: General: 72yo female resting in bed,NAD but reporting mild headache HEENT; head atraumatic, normocephalic, mmm, pupils equal, trachea midline Resp: even/unlabored, no w/c/r, slightly diminished in the bases, on room air CV: RRR, no significant mrg, no pitting edema/calf tenderness GI: +BS, soft/NT no peguero MSK/neuro: nonfocal, no slurred speech, answering questions appropriately, baseline tremor appreciated (hx parkinsons) Psych: AOx3, cooperative with exam Results & Data Results & Data Vital Signs (Past 12 Hours) Vital Signs Temp Pulse Pulse Resp BP Pulse Ox O2 Del Method 07/17/23 07:19 36.5 C 105 H 18 124/81 91 Room Air 07/17/23 03:05 36.6 C 73 18 134/92 73 L Room Air 07/17/23 00:19 68 07/16/23 23:31 36.3 C L 84 16 106/73 93 Room Air 07/16/23 21:28 36.4 C L 73 16 99/63 L 91 Room Air 07/16/23 21:00 07/16/23 20:39 36.8 C 72 16 133/78 92 Room Air O2 Del Method 07/17/23 07:19 07/17/23 03:05 07/17/23 00:19 07/16/23 23:31 07/16/23 21:28 07/16/23 21:00 Room Air 07/16/23 20:39 Laboratory Results 07/17/23 07/16/23 07/16/23 Range/Units 03:28 22:56 22:08 WBC 8.77 (4.8-10.8) K/ul RBC 4.62 (4.20-5.40) M/uL Hgb 13.7 (12.0-16.0) g/dl Hct 40.4 (37.0-47.0) % MCV 87.4 (80.0-100.0) fL MCH 29.7 (25.0-34.0) pg MCHC 33.9 (32.0-36.0) g/dL RDW Std Deviation 39.7 (36.4-46.3) fL RDW Coeff of Karla 12.3 (11.5-14.5) % Plt Count 194 (130-400) K/uL MPV 10.7 (9.4-12.4) fL Immature Gran % (Auto) 0.3 % Neut % (Auto) 70.3 % Lymph % (Auto) 19.3 % [place] % (Auto) 7.5 % Eos % (Auto) 2.5 % Baso % (Auto) 0.1 % Neut # (Auto) 6.16 (1.40-6.50) K/uL Lymph # (Auto) 1.69 (1.20-3.40) K/uL [place] # (Auto) 0.66 H (0.11-0.59) K/uL Eos # (Auto) 0.22 (0.00-0.50) K/uL Baso # (Auto) 0.01 (0.00-0.20) K/uL Immature Gran # (Auto) 0.03 (0.01-0.20) K/uL PT 11.9 (9.0-12.0) Seconds INR 1.1 (0.9-1.1) Activ Coag Time Kaolin (94-140) SECONDS Heparin Anti-Xa, Unfract (0.3-0.7) IU/ml Sodium 137 (136-145) mmol/L Potassium 3.8 (3.5-5.1) mmol/L Chloride 106 (98-107) mmol/L Carbon Dioxide 26 (21-32) mmol/L Anion Gap 5 (3-11) BUN 21 (6-23) mg/dl Creatinine 0.89 (0.6-1.2) mg/dl Est Cr Clr Drug Dosing 65.3 ml/min Est GFR ( Amer) 75.0 ml/min Est GFR (Non-Af Amer) 64.7 ml/min BUN/Creatinine Ratio 23.6 H (10-20) Glucose 97 (70-99(Fasting)) mg/dl Calcium 8.4 L (8.6-10.3) mg/dl Magnesium 1.8 (1.7-2.4) mg/dl Total Bilirubin 0.6 (0.2-1.0) mg/dl AST 13 (13-39) U/L ALT < 3 L (7-52) U/L Alkaline Phosphatase 74 (34-104) U/L Troponin I High Sens 460.3 H* 516.0 H* D (0-14) pg/ml Total Protein 6.1 (6.0-8.3) gm/dl Albumin 3.8 (3.4-5.0) gm/dl Globulin 2.3 L (2.5-4.0) gm/dl Albumin/Globulin Ratio 1.7 (0.9-2) Urine Color Yellow Urine Appearance Clear (Clear) Urine pH 7.5 (4.5-7.5) Ur Specific [place] > 1.045 H (1.000-1.030) Urine Protein Trace H (Negative) Urine Glucose (UA) Negative (Negative) Urine Ketones Trace H (Negative) Urine Blood Negative (Negative) Urine Nitrite Negative (Negative) Urine Bilirubin Negative (Negative) Urine Urobilinogen Negative (Negative) Ur Leukocyte Esterase Negative (Negative) Urine WBC (Auto) 10-30 H (0-5) /hpf Urine RBC (Auto) 0-4 (0-4) /hpf U Hyaline Cast (Auto) 0 (0-5) /lpf U Epithel Cells (Auto) >30 H (0-5) /lpf Urine Bacteria (Auto) Negative (Negative) 07/16/23 07/16/23 07/16/23 Range/Units 16:11 16:10 14:38 WBC (4.8-10.8) K/ul RBC (4.20-5.40) M/uL Hgb (12.0-16.0) g/dl Hct (37.0-47.0) % MCV (80.0-100.0) fL MCH (25.0-34.0) pg MCHC (32.0-36.0) g/dL RDW Std Deviation (36.4-46.3) fL RDW Coeff of Karla (11.5-14.5) % Plt Count (130-400) K/uL MPV (9.4-12.4) fL Immature Gran % (Auto) % Neut % (Auto) % Lymph % (Auto) % [place] % (Auto) % Eos % (Auto) % Baso % (Auto) % Neut # (Auto) (1.40-6.50) K/uL Lymph # (Auto) (1.20-3.40) K/uL [place] # (Auto) (0.11-0.59) K/uL Eos # (Auto) (0.00-0.50) K/uL Baso # (Auto) (0.00-0.20) K/uL Immature Gran # (Auto) (0.01-0.20) K/uL PT (9.0-12.0) Seconds INR (0.9-1.1) Activ Coag Time Kaolin 228 H (94-140) SECONDS Heparin Anti-Xa, Unfract > 1.50 H* (0.3-0.7) IU/ml Sodium (136-145) mmol/L Potassium (3.5-5.1) mmol/L Chloride (98-107) mmol/L Carbon Dioxide (21-32) mmol/L Anion Gap (3-11) BUN (6-23) mg/dl Creatinine (0.6-1.2) mg/dl Est Cr Clr Drug Dosing ml/min Est GFR ( Amer) ml/min Est GFR (Non-Af Amer) ml/min BUN/Creatinine Ratio (10-20) Glucose (70-99(Fasting)) mg/dl Calcium (8.6-10.3) mg/dl Magnesium (1.7-2.4) mg/dl Total Bilirubin (0.2-1.0) mg/dl AST (13-39) U/L ALT (7-52) U/L Alkaline Phosphatase (34-104) U/L Troponin I High Sens 354.0 H* (0-14) pg/ml Total Protein (6.0-8.3) gm/dl Albumin (3.4-5.0) gm/dl Globulin (2.5-4.0) gm/dl Albumin/Globulin Ratio (0.9-2) Urine Color Urine Appearance (Clear) Urine pH (4.5-7.5) Ur Specific [place] (1.000-1.030) Urine Protein (Negative) Urine Glucose (UA) (Negative) Urine Ketones (Negative) Urine Blood (Negative) Urine Nitrite (Negative) Urine Bilirubin (Negative) Urine Urobilinogen (Negative) Ur Leukocyte Esterase (Negative) Urine WBC (Auto) (0-5) /hpf Urine RBC (Auto) (0-4) /hpf U Hyaline Cast (Auto) (0-5) /lpf U Epithel Cells (Auto) (0-5) /lpf Urine Bacteria (Auto) (Negative) 07/16/23 07/16/23 Range/Units 14:20 10:11 WBC (4.8-10.8) K/ul RBC (4.20-5.40) M/uL Hgb (12.0-16.0) g/dl Hct (37.0-47.0) % MCV (80.0-100.0) fL MCH (25.0-34.0) pg MCHC (32.0-36.0) g/dL RDW Std Deviation (36.4-46.3) fL RDW Coeff of Karla (11.5-14.5) % Plt Count (130-400) K/uL MPV (9.4-12.4) fL Immature Gran % (Auto) % Neut % (Auto) % Lymph % (Auto) % [place] % (Auto) % Eos % (Auto) % Baso % (Auto) % Neut # (Auto) (1.40-6.50) K/uL Lymph # (Auto) (1.20-3.40) K/uL [place] # (Auto) (0.11-0.59) K/uL Eos # (Auto) (0.00-0.50) K/uL Baso # (Auto) (0.00-0.20) K/uL Immature Gran # (Auto) (0.01-0.20) K/uL PT (9.0-12.0) Seconds INR (0.9-1.1) Activ Coag Time Kaolin 217 H (94-140) SECONDS Heparin Anti-Xa, Unfract (0.3-0.7) IU/ml Sodium (136-145) mmol/L Potassium (3.5-5.1) mmol/L Chloride (98-107) mmol/L Carbon Dioxide (21-32) mmol/L Anion Gap (3-11) BUN (6-23) mg/dl Creatinine (0.6-1.2) mg/dl Est Cr Clr Drug Dosing ml/min Est GFR ( Amer) ml/min Est GFR (Non-Af Amer) ml/min BUN/Creatinine Ratio (10-20) Glucose (70-99(Fasting)) mg/dl Calcium (8.6-10.3) mg/dl Magnesium (1.7-2.4) mg/dl Total Bilirubin (0.2-1.0) mg/dl AST (13-39) U/L ALT (7-52) U/L Alkaline Phosphatase (34-104) U/L Troponin I High Sens 322.3 H* (0-14) pg/ml Total Protein (6.0-8.3) gm/dl Albumin (3.4-5.0) gm/dl Globulin (2.5-4.0) gm/dl Albumin/Globulin Ratio (0.9-2) Urine Color Urine Appearance (Clear) Urine pH (4.5-7.5) Ur Specific [place] (1.000-1.030) Urine Protein (Negative) Urine Glucose (UA) (Negative) Urine Ketones (Negative) Urine Blood (Negative) Urine Nitrite (Negative) Urine Bilirubin (Negative) Urine Urobilinogen (Negative) Ur Leukocyte Esterase (Negative) Urine WBC (Auto) (0-5) /hpf Urine RBC (Auto) (0-4) /hpf U Hyaline Cast (Auto) (0-5) /lpf U Epithel Cells (Auto) (0-5) /lpf Urine Bacteria (Auto) (Negative) PG Care Time/CCT Total # of Minutes Spent Total Time Spent with Patient: Total time spent is greater than 50% in coordination of care (as documented) at patient's floor/unit and/or counseling patient: Coding Diagnoses Non-ST elevation ND (NSTEMI) I21.4 SOB (shortness of breath) R06.02 Chest pain R07.9 Parkinsons disease G20
[2023-07-17] MEDS: ACETAMINOPHEN 325 MG TAB PO PRN (10:11)
--- NOTE | 2023-07-17 13:40 | Discharge Summary ---
Date of Service July 17, 2023 Admission HPI Per Admitting Provider Samira Yepez is a 71yo with history of Parkinson disease, chronic low back pain with sciatica, Fibromyalgia, and HLP who presented to the [facility] ED on 07/15/23 with complaints of chest pain yesterday and today. She remained stable in the ED. Labs were significant for an initial high sen trop of 259--> 311 on 2 hour repeat. Chest xray was negative for acute findings. ECG shows NSR with new ST segment depressions in the inferior and anterior leads but was without ST segment elevation. The patient's pain resolved shortly after ED arrival. She was given 324 mg Aspirin on arrival and was ordered a low dose, weight based heparin drip w/bolus prior to admission. At the time of the exam the patient was sitting in bed in no acute distress with her and daughter bedside. The patient states that she was in her no rmal state of health when she developed sudden onset of substernal chest pain/pressure with radiation to the back, left neck/jaw, and left arm. She was sitting when the symptoms began, they lasted for approximately 30 min. She did not take any medications to alleviate the symptoms. She had another episode with the same symptoms and radiation, shortly after waking this am, while at rest. She states that the symptoms lasted for approximately 45 minutes before they began to subside after ED arrival. She denies a previous hx of cardiac disease or CHF. She is currently chest pain free at the time of my exam but does still have mild SOB at rest. She denies previous tobacco use, recent alcohol use. No recent fever, chills, cough, abd pain, vomiting, dysuria hematuria, melena, diarrhea, LE swelling, and recent trauma. She has had some nausea with her episodes of chest pain but this is currently resolved. She is a full code and would want her daughter to make medical decisions for her if she cannot make them herself. Please refer to Dr. Elias's attestation for any changes to the treatment plan Admission Exam Per Admitting Provider Physical Exam: General: In no acute distress, stated age, well-nourished, good hygiene HEENT: Normocephalic, atraumatic, no scleral icterus, pupils around round, symmetrical, and reactive to light, moist mucus membranes, trachea midline, no thyromegaly Chest/Pulm: Negative for reproducible pain on palpation of the chest, No respiratory distress, symmetrical chest expansion, clear breath sounds throughout Cardiac: RRR, no murmurs noted Abdomen: Negative for ascites and bruising, normoactive bowel sounds, soft, non- tender to palpation throughout Musculoskeletal: Symmetrical and without signs of acute trauma, upper and lower extremities with full ROM, no atrophy, or flaccidity Extremities: Radial, dorsalis pedis, and posterior tibial pulses are intact and symmetrical, no edema noted in the BL LE's Skin: Warm, dry, no rashes , lesions, or scars noted Neuro: Alert and oriented to person, place, month, year, and president, no focal defects, baseline resting tremor noted Psych: No acute distress, calm and cooperative during the exam Principal Diagnosis NSTEMI Discharge Exam General: 72yo female resting in bed,NAD but reporting mild headache (improved/resolved in the afternoon, at bedside, anxious for discharge if able) HEENT; head atraumatic, normocephalic, mmm, pupils equal, trachea midline Resp: even/unlabored, no w/c/r, slightly diminished in the bases, on room air CV: RRR, no significant mrg, no pitting edema/calf tenderness some ecchymosis to R arm from IV draw GI: +BS, soft/NT no peguero MSK/neuro: nonfocal, no slurred speech, answering questions appropriately, baseline tremor appreciated (hx parkinsons) Psych: AOx3, cooperative with exam Discharge Data Allergies Allergy/AdvReac Type Severity Reaction Status Date / Time gabapentin AdvReac Severe HALLUCINATI Verified 07/15/23 16:46 ONS oxycodone AdvReac Severe HALLUCINATI Verified 07/15/23 16:46 ONS/DIZZINE SS Consultations 07/15/23 16:59 ED Decision to Admit Stat 07/15/23 17:13 Consult Cardiology Routine 07/16/23 16:20 Consult Cardiac Rehabilitation Routine Procedures Performed Operation Date: 07/16/23 13:30 Actual Procedures s Cineradiography w/Routine Exam - Carson Rowan MD, PhD p Cath, Coronaries ONLY (no LV) - Carson Rowan MD, PhD s Fraction Flow Hibernia SGL Ves - Carson Rowan MD, PhD p Drug Eluting Stent SGl Vessel - Carson Rowan MD, PhD Ordered Studies Chest X-Ray 07/15/23 14:33 XR chest 1V not portable CLINICAL HISTORY: Chest pain, nonspecific TECHNIQUE: Single frontal radiograph of the chest was obtained. Comparison: None available at the time of this dictation. FINDINGS: No lines and tubes are seen. The cardiomediastinal silhouette is normal. The lungs are clear. No evidence of pleural effusion or pneumothorax. IMPRESSION: No acute chest disease. ACT 112: Negative or not required by law. Electronically signed by: Antolin Casiano M.D. 07/15/2023 3:12 PM Chest CTA 07/15/23 18:16 Exam(s): CTA CHEST IV Amt: 113 cc opti 320 EXAM: CT Angiography Chest With Intravenous Contrast CLINICAL HISTORY: Reason for exam: PE. TECHNIQUE: Axial computed tomographic angiography images of the chest with intravenous contrast. CTDI is 31.85 mGy and DLP is 0 mGy-cm. Automated exposure control was utilized for the study. A dose lowering technique was utilized adhering to the principles of ALARA. MIP reconstructed images were created and reviewed. COMPARISON: No relevant prior studies available. FINDINGS: LUNGS: No focal consolidation, pleural effusion, or pneumothorax. Atelectasis at the lung bases. HEART: Cardiomegaly. VASCULATURE: No acute pulmonary embolism. Atherosclerotic changes of the aorta. THYROID: Within normal limits. MEDIASTINUM + LYMPH NODES: There are no pathologically enlarged mediastinal, hilar, or axillary lymph nodes. SUPERIOR ABDOMEN: Hepatic steatosis. MUSCULOSKELETAL: Degenerative changes. IMPRESSION: No acute pulmonary embolism. Electronically signed by: Dontae De Oliveira MD 07/15/23 21:02 PM ECHOCARDIOGRAM 07/16/2023 - no prior study for comparison LV systolic function normal, EF 60-65%. LV wall motion normal. No regional wall motion abn noted. RV normal in size/function. Mild MR. LA size is normal Hospital Course (1) Non-ST elevation IL (NSTEMI): Presented to the ED after experiencing multiple episodes of substernal chest pain/pressure with radiation to the back, left neck/jaw, and left arm for past day/day and a half, had episode lasting about 45 minutes before subsiding after ED arrival. Symptoms also associated with SOB, currently experiencing mild SOB without other associated symptoms EKGs w/ NSR w/ DT depressions in inferior/anterior leads but without ST segment elevation s/p ASA 324 mg in ER, continued on ASA 81mg daily Heparin gtt initiated Initial high sen trop elevated at 259-->311 -> up to 330 --> 318 on repeat and had denied CP since heparin/admission but had ongoing nausea/shortness of breath and NPO for cath per discussion with Dr Lin A1c 5.5 Lipid panel w/ TRG 88, Cholesterol 194 (LDL 112) Continued on propranolol 160mg daily (on for her tremors/hx Parkinson) ECHO w/ LV systolic function normal, EF 60-65%. LV wall motion normal. No regional wall motion abn noted. RV normal in size/function. Mild MR. LA size is normal s/p cardiac catheterization with Dr Rowan on 07/15 Summary: 1. 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 2. IFR analysis of the LAD demonstrates that these lesions do not meet criteria for hemodynamic significance. 3. Successful PCI with implantation of a drug-eluting stent to the large branching OM1. 4. Dual antiplatelet therapy with aspirin 81 mg daily and Brilinta 90 mg p.o. twice daily. 5. Guideline directed medical therapy for secondary prevention of coronary disease to include; low-dose aspirin, high intensity statin therapy, beta- amol, plus or minus YOLANDA inhibitor/ARB as tolerated. 6. Highly recommend CARDIAC REHAB. On propranolol 160mg daily for her tremors/parkinson's - discussed w/ cardiology however likely to continue such given use for tremor and is beta amol however given some mild tachycardia some evenings/early mornings, recs to increase and add 80mg PM and continue usual 160mg QAM Continue aspirin/brillinta (sent w/ refill for brillinta, will need continued f/u and refills w/ cards/primary care) - continue for one year Continue atorvastatin 40mg daily -- new med, rx sent F/u cardiology, cardiac rehab at discharge No further CP/SOB reported. Had mild headache AM 3/7 similar to prior headaches w/ her parkisons and resolved with tylenol and wanting to go home. STOPPED her meloxicam at dc and to f/u PCP about discussion but would avoid NSAIDs given DAPT and risk of bleeding Cleared w/ cardiology and discharge planned home w/ (2) SOB (shortness of breath): Reports of SOB w/ her episodes of CP --Ddimer checked, slightly elevated - CTA chest obtained which was NEGATIVE for PE continued while CP free initially prior to cath and RESOLVED following cath/PCI as above COVID/Flu/RSV negative Was given pepcid/protonix without change, monitor for GI proph while on heparin gtt CXR w/o acute process, on room air Suspect from her NSTEMI given resolution following intervention (3) Chest pain: See NSTEMI s/p PCI as above, no further chest pain (4) Parkinsons disease: Continued Carbidopa/levodopa and Propranolol -- but increased propranolol to 160mg QAM, 80mg QPM as above f/u pcp/cards (5) CAD (coronary artery disease): as noted, now s/p PCI to OM1 DAPT x 1 year, statin propranolol, increased as above f/u PCP and consideration for YOLANDA/ARB if BPs tolerate in follow up (not diabetic, A1c not elevated on check) (6) Presence of drug coated stent in left circumflex coronary artery: as above Plan discharged home Total Time Total Time Spent Total Time Spent (In Minutes): 45 Discharge Plan Discharge Items Patient Disposition: Home - Self-Care Reason For Visit: CHEST PAIN, ELEVATED TROP Discharge Diagnosis: NSTEMI, coronary artery disease Condition on Discharge: Fair Goals: You have been hospitalized for an urgent problem which required surgery. During your stay at [facility], we have made an effort to correct the problem that brought you to the hospital while keeping you as comfortable as possible. Surgery and medications were used to bring your condition under control and your discharge instructions will include directions for any medications you should take after leaving the hospital. Please make sure to follow the advice of your surgeon regarding follow up with the surgeon and with your primary care provider. Activity: As commented below Non-emergency contact: Primary Care Provider and Boiler Cleaner Call non-emergency contact if: you have any medication questions, your symptoms worsen, your pain is concerning for you and you have a fever Follow-up/Referrals: Carson Rowan MD, PhD [Physician] - Jasmin Polanco DO [Primary Care Provider] - Diet: Heart Healthy Addtl Attending Provider Instructions: You have been hospitalized for chest pain. IV medications were provider and cardiology was consulted given concerns for blockage in your coronary arteries. You were taken to the cardiac dental lab technician and underwent stenting as discussed with cardiology and are being sent on aspirin 81mg daily and Brilinta 90mg by mouth twice daily. You have also been started on medication for cholesterol called atorvastatin 40mg daily. This can cause cramping and may be beneficial to take at night. Your propranolol has been continued but given elevated rates at some times, this has been increased to add 80mg in the evening for better control. You should follow up with primary care and cardiology at discharge in the next 1-2 weeks. While on the aspirin/Brilinta, your meloxicam has been STOPPED. YOu should discuss with primary care about taking any NSAIDs while on antiplatelet medications as they can increased risk of bleeding. Please return to the ER with any repeat chest pain, worsening shortness of breath, bleeding, or for any other symptoms concerning for you. It has been a pleasure being a part of the medical team providing for you while you have been in the hospital. Take care! Addtl Adjunct Instructor Provider Instructions: ACTIVITY RECOMMENDATIONS: Excess manipulation of the wrist should be avoided for the next 24-48 hours. * No lifting over 2 pounds (approximately a 1/2 gallon of milk) with the utilized arm for 24 hours. * No strenuous activity such as bowling or tennis for 3 days. * Keep the site of the procedure covered with a bandage for 24 hours. *You may shower the day after the procedure. Do not take a tub bath or submerge the puncture site in water for the next 3 days. *Do not operate any motorized equipment for 3 days. SPECIAL CARE INSTRUCTIONS: The site may be slightly bruised and sore following your procedure. Should any of the following occur, contact the Dr. who performed your procedure. 1. Redness/inflammation, swelling, chills, or fever, or colored drainage at procedure site within 3-7 days after your procedure. 2. Coldness, discoloration, ongoing numbness, severe pain, or swelling. Expect mild tingling of hand and tenderness at the puncture site for up to three days. If this persists beyond three days, or other symptoms develop, notify the Dr. who performed your procedure. BLEEDING: If the procedure site on your wrist begins to bleed, do not panic 1. Place 1 or 2 fingers firmly just slightly above the insertion site to stop the bleeding. You may be able to feel your pulse as you hold pressure. 2. Lift your finger after 5 minutes to see if the bleeding has stopped. 3. Once the bleeding has stopped, gently wipe the wrist area clean with a bandage. * If the bleeding from your wrist does not stop after 10 minutes, or if there is a large amount of bleeding or spurting, call 911 (do not drive yourself to the hospital). SKIN IRRITATION: * You may experience some redness and/or swelling in the area where radiation was administered. If any skin irritation occurs, please contact your family physician. FOLLOW UP VISIT: Keep any scheduled doctor appointments. Pending Studies at Discharge: No Stand-Alone Forms: [facility] Medications and DC Order Prescriptions: New Brilinta 90 mg Tablet 90 mg PO BID 30 Days Qty: 60 3RF atorvastatin 40 mg Tablet 40 mg PO QAM Qty: 30 1RF aspirin 81 mg Tablet,Delayed Release (Dr/Ec) 81 mg PO DAILY Qty: 30 0RF propranolol 60 mg tablet 60 mg PO QPM Qty: 30 0RF Continued propranolol 160 mg capsule,extended release 24 hr 160 mg PO DAILY Qty: 90 0RF carbidopa-levodopa 25-100 mg tablet 1.5 tab PO TID 90 Days Qty: 405 0RF Rx Instructions: QAM, 1400, QHS ropinirole 1 mg tablet 1 mg PO TID 90 Days Qty: 270 0RF Rx Instructions: QAM, 1400, QHS duloxetine 60 mg capsule,delayed release(DR/EC) 60 mg PO DAILY Qty: 90 3RF acetaminophen 500 mg tablet 1,000 mg PO TID PRN (Reason: Pain) Qty: 90 Discontinued meloxicam 15 mg tablet 15 mg PO DAILY Qty: 90 1RF Discharge Orders: Discharge Order (Routine); Ordered 07/17/23 Ordered By: Dagmar Betancur Admission Data Admit Date/Time: 07/15/23 16:54 Attending Provider: Perfecto Pan Admit Provider: Spencer Elias Primary Care Provider: Jasmin Polanco Other Providers: Spencer Elias; Shan Díaz Jr Other Interventions: Discharge Summary Assessment (RN) Last Done: 07/17/23 13:58 Supervising Physician Co-Signing Physician Notes The patient was not seen by me. The chart was reviewed. Case discussed with OTTO Neri. Agree with assessment and plan. The patient is medically stable for discharge today, July 16 Coding Level of Care Code 53408 INP/OBS DISCH >30 MIN Diagnoses Non-ST elevation IL (NSTEMI) I21.4 SOB (shortness of breath) R06.02 Chest pain R07.9 Parkinsons disease G20 CAD (coronary artery disease) I25.10 Presence of drug coated stent in left circumflex coronary artery Z95.5
--- NOTE | 2023-07-17 13:53 | Cardiology Progress Note ---
Date of Service July 17, 2023 Assessment & Plan (1) Non-ST elevation SC (NSTEMI): (2) CAD (coronary artery disease): (3) Presence of drug coated stent in left circumflex coronary artery: (4) Parkinsonism: Plan Cardiac catheterization showed borderline LAD disease with negative IFR analysis (not hemodynamically significant), significant OM1 disease (drug-eluting stent placed), and 90% first diagonal stenosis. As per Dr. Rowan's (interventional cardiology) recommendations, dual antiplatelet therapy, beta-amol, statin, and potentially YOLANDA inhibitor/ARB. Specific recommendations include: 1. Aspirin 81 mg daily and ticagrelor 90 mg twice daily for the next year. 2. Continue atorvastatin 40 mg daily, titrate upward if LDL greater than 70. 3. Continue propranolol for both tremor and to reduce risk of tachycardia. Since patient has had mild levels of tachycardia in hospital, would increase propranolol dose to 160 mg every morning and 80 mg every evening. 4. No immediate role for YOLANDA inhibitor/ARB with normotensive BP and absence of diabetes. I will arrange for follow-up with me in cardiology clinic in 3 to 4 weeks. Admission and Anticipated Discharge Date Admission Date: July 15, 2023 Subjective Uneventful night, she did develop a headache which is of a typical nature for her, denies any chest pain, dyspnea, or palpitations. Telemetry showed sinus rhythm with heart rate range 67-105 bpm. Physical Exam Physical Exam: No distress. Afebrile. Normotensive. Pulse 69 bpm regular. Respirations 18 unlabored. Skin: no ecchymoses or generalized lesions. HEENT: unremarkable. Neck: JVP at the clavicle at 90 degrees, no carotid bruits. Lungs: clear. Cardiac: regular rhythm, normal S1-2, no murmur. Abdomen: benign. Extremities: no edema, pulses intact. Right wrist access site benign. Neurologic: normal affect and conversation, nonfocal. Results & Data Vital Signs (Past 12 Hours) Vital Signs Temp Pulse Pulse Resp BP BP Pulse Ox 07/17/23 12:11 98.2 F 82 16 116/72 92 07/17/23 08:00 71 07/17/23 07:19 97.7 F 105 H 18 124/81 91 07/17/23 03:05 97.9 F 73 18 134/92 73 L O2 Del Method 03/07/24 12:11 Room Air 07/17/23 08:00 07/17/23 07:19 Room Air 07/17/23 03:05 Room Air Laboratory Results Troponin peak 516, dropped to 460 today. Normal electrolytes, BUN 21, creatinine 0.9. PG Care Time/CCT Total # of Minutes Spent Total Time Spent with Patient: Total time spent is greater than 50% in coordination of care (as documented) at patient's floor/unit and/or counseling patient: Coding Level of Care Code 87285 SUB INP/OBS CARE 3/50MIN Diagnoses Non-ST elevation SC (NSTEMI) I21.4 CAD (coronary artery disease) I25.10 Presence of drug coated stent in left circumflex coronary artery Z95.5 Parkinsonism G20
--- NOTE | 2023-07-22 05:29 | Electrocardiogram Report ---
Test Reason : Blood Pressure : / mmHG Vent. Rate : 068 BPM Atrial Rate : 068 BPM P-R Int : 184 ms QRS Dur : 078 ms QT Int : 408 ms P-R-T Axes : 054 -02 043 degrees QTc Int : 433 ms Normal sinus rhythm Abnormal ECG When compared with ECG of 15-JUL-2023 16:01, Premature ventricular complexes are no longer Present Nonspecific T wave abnormality now evident in Inferior leads Nonspecific T wave abnormality, worse in Lateral leads Confirmed by Brennan Rodgers ([id number]) on 07/22/2023 5:28:59 AM Referred By: REFERRED SELF Confirmed By:Brennan Rodgers
== END 2023-07-17 14:59 | disposition home or self-care (01) | DRG 322 ==
LOC: ED 14:19 → SUATTDRO 16:54 → EDINP 16:54 → 4W 19:59
PROC: CLB.CCO (2023-07-16 13:30)